=== PATIENT | male | born 1940 | race Caucasian/White ===

== ENCOUNTER 2017-05-01 11:09 | Day surgery (SDC) | payer MEDICARE ==
[~2017-05-01 11:09] MED LIST: Lidocain 1% EPI 1:100,000 * 30 ML MDV ONE
[2017-05-01] MEDS ORDERED: Bupivacaine 0.25% SDV* 30 ML ONE (13:04)
[2017-05-01 14:45] VITALS: BP 130/79
--- NOTE | 2017-05-01 23:39 | OP ---
DATE OF OPERATION: 05/01/17 - [facility] DATE OF : 38 SURGEON: Payam Mayen MD GANG BOSS: GIANCARLO Elkins ANESTHESIOLOGIST: None. ANESTHESIA: Local only with 1% lidocaine with epinephrine and bicarbonate. PRE-OP DIAGNOSIS: Right severe carpal tunnel syndrome. POST-OP DIAGNOSIS: Right severe carpal tunnel syndrome. OPERATIVE PROCEDURE: Right open carpal tunnel release. INDICATIONS: Robby has severe right carpal syndrome with significant atrophy in the thenar muscles. We had talked about risks and benefits. I told him I thought it would be worthwhile to preserve the sensation that he has in the radial three digits. He understands that as the nerve heals, he may even have more numbness and tingling and that he is likely to have incomplete relief. We talked about risks and benefits including the risk of chronic pain, nerve injury , vascular injury among others. ESTIMATED BLOOD LOSS: 5 mL. COMPLICATIONS: None. FINDINGS: As expected. DESCRIPTION OF PROCEDURE: Robby was seen in the preoperative holding area and the correct site and side of the procedure were identified. We had a time-out, then I anesthetized the operative area with 1% lidocaine with epinephrine. We then came back to the operating room, and the arm was prepped and draped in the usual fashion after a pre-scrub. I made a 2 to 3 cm longitudinal incision in the standard location for an open carpal tunnel release. Dissection was carried down through the subcutaneous tissue. The palmar fascia was incised longitudinally. I released the transverse carpal ligament just off the radial aspect of the hook of the hamate. This was carried out from distal to proximal. When I got to the level of the proximal aspect of the incision, I released the subcutaneous tissue and the fat and retracted that volarly and ulnarly with the Emeka retractor. Under direct visualization, I then released the remainder of the transverse carpal ligament just off the ulnar border of the palmaris longus tendon to a level of several centimeters proximal to the wrist flexion crease. I then checked the decompression again. There were few more fibers to be released. Ultimately, every-thing looked very nicely decompressed. You could tell that the nerve had been quite compressed; it was very purple in its color and flattened. The wound was then irrigated and the skin closed with some 4-0 nylon sutures. The wound was dressed with Xeroform, 4x4s, sterile Webril, and an Jim wrap. He was then taken to the recovery room in stable condition. As I was closing the wound , I went ahead and infiltrated the operative area with 0.25% Marcaine as well. [id number]/[facility] #: [id number] JOVANI
== END 2017-05-01 14:32 | disposition home or self-care (01) ==
LOC: OREAST 11:09
PROVIDERS: ATTEND Orthopaedic Surgery Hand Surgery
DX: G56.01 Carpal tunnel syndrome, right upper limb (principal); Z79.02 Long term (current) use of antithrombotics/antiplatelets; E11.9 Type 2 diabetes mellitus without complications; I48.91 Unspecified atrial fibrillation; Z87.891 Personal history of nicotine dependence; I25.10 Atherosclerotic heart disease of native coronary artery without angina pectoris; I47.2 Ventricular tachycardia; E78.5 Hyperlipidemia, unspecified; Z79.4 Long term (current) use of insulin; Z79.82 Long term (current) use of aspirin; Z88.8 Allergy status to other drugs, medicaments and biological substances; Z88.0 Allergy status to penicillin

== ENCOUNTER 2017-06-19 09:02 | Day surgery (SDC) | payer MEDICARE ==
[2017-06-19] MEDS ORDERED: Sodium Bicarbonate 8.4%* 50 ML SYRINGE ONE (09:57)
[2017-06-19] MEDS ORDERED: Lidocaine 1.5% EPI 1:200,000* 30 ML SDV ONE (09:57)
[2017-06-19] MEDS ORDERED: Bupivacaine 0.25% SDV* 30 ML ONE (10:18)
[2017-06-19 11:31] VITALS: BP 138/64
--- NOTE | 2017-06-20 03:33 | OP ---
DATE OF OPERATION: 06/19/17 - [facility] DATE OF : 38 SURGEON: Payam Mayen MD MOTOR BRAKEMAN: GIANCARLO Elkins ANESTHESIOLOGIST: None. ANESTHESIA: Local only with 1% lidocaine with epinephrine and bicarbonate. PRE-OP DIAGNOSIS: Left carpal tunnel syndrome. POST-OP DIAGNOSIS: Left carpal tunnel syndrome. OPERATIVE PROCEDURE: Left open carpal tunnel release. INDICATIONS: Robby has had progressive symptoms related to his carpal tunnel syndrome. We talked about risks and benefits. He had wanted to proceed with carpal tunnel release. He has previously had the right side done. ESTIMATED BLOOD LOSS: 5 mL. COMPLICATIONS: None. FINDINGS: As expected. DESCRIPTION OF PROCEDURE: Robby was seen in the preoperative holding area, the correct site, side, and procedure were identified. We had a time-out and the operative area was infiltrated with 1% lidocaine with epinephrine and bicarbonate. Short time later, we came back to the operating room and the arm was prepped and draped and a formal time-out was performed. I began by making a 3 cm incision in the typical location for an open carpal tunnel release. The dissection was carried down trough the skin, subcutaneous tissue, and palmar fascia to expose the transverse carpal ligament. This was released just off the radial aspect of the hook of the hamate. I did the release from distal to proximal. When I got to the proximal, I released the fascia and the subcutaneous tissue and this was retracted superficially and ulnarly. Under direct visualization, I then used the tenotomy scissors to release the remainder of the transverse carpal ligament. I then checked my decompression proximally and, just 1 cm or two proximal to my incision, there was a tight band of tissue that still remained. I was having difficulty visualizing this and so I went ahead and took my incision up across the wrist crease in Lexi type fashion, raised the full- thickness flaps and indeed the distal end of brachial fascia was still not fully released there and so I went ahead and took my tenotomy scissors and released that under direct visualization until I was completely satisfied with the release. I then turned my attention distally, there were a few more fibers of palmar fascia that were released. The nerve was fully released distally and proximally at this point. I went ahead and irrigated out the wound. The skin was closed with 4-0 nylon suture. The operative area was then infiltrated with 0.25% plain Marcaine. The wound was then dressed with Xeroform, 4x4, sterile Webril, and Jim bandage and he was then taken to the recovery room in stable condition. [id number]/[facility] #: [id number] MTDD
== END 2017-06-19 11:56 | disposition home or self-care (01) ==
LOC: OREAST 09:02
PROVIDERS: ATTEND Orthopaedic Surgery Hand Surgery
DX: G56.02 Carpal tunnel syndrome, left upper limb (principal); E11.9 Type 2 diabetes mellitus without complications; Z79.84 Long term (current) use of oral hypoglycemic drugs

== ENCOUNTER 2018-02-12 06:00 | Inpatient (IN) | payer MEDICARE ==
[~2018-02-12 06:00] MED LIST changes: +Buffered Lidocaine 0.9% SYRIN* 5 ML/SYR SYRINGE INTRADERM ONE; +Famotidine IV* 10 MG/ML 2 ML (20 mg) IV ONE; -Lidocain 1% EPI 1:100,000 * 30 ML MDV ONE; +Metoclopramide TAB* 10 MG PO ONE; +Vancomycin(*) 1,500 MG in NS 0.9% 250 ML* 250 ML IVPB SCH
[2018-02-12] MEDS ORDERED: Famotidine IV* 10 MG/ML 2 ML (20 mg) ONE (06:09)
[2018-02-12] MEDS ORDERED: Metoclopramide TAB* 10 MG ONE (06:09)
[2018-02-12] MEDS ORDERED: Artificial Tear OPHTH.OINT* 3.5 GM ONE (07:08)
[2018-02-12] MEDS ORDERED: Ondansetron INJ* 2 MG/ML VIAL ONE (07:20)
[2018-02-12] MEDS ORDERED: Sodium Chloride 0.9%* 10 ML ONE (07:20)
[2018-02-12] MEDS ORDERED: EPHEDrine (Pressors)* 50 MG/ML VIAL ONE (07:20)
[2018-02-12] MEDS ORDERED: Dexamethasone IV* 4 MG/ML 1 ML (4 MG) ONE (07:20)
[2018-02-12] MEDS ORDERED: Propofol* 10 MG/ML 20 ML BTL IV PUSH ONE (07:20)
[2018-02-12] MEDS ORDERED: Lidocaine 2% PF * 5 ML VIAL ONE (07:20)
[2018-02-12] MEDS ORDERED: Phenylephrine INJ* 10 MG/ML 1 ML VIAL (10 MG) ONE ×2 (07:20→09:11)
[2018-02-12] MEDS ORDERED: Mivacurium Chloride* 20 MG/10 ML VIAL IV ONE (07:20)
[2018-02-12] MEDS ORDERED: fentaNYL* 50 MCG/ML 2 ML VIAL (100 MCG VIAL) ONE (07:20)
[2018-02-12] MEDS ORDERED: Propofol* 500 MG/50 ML BTL ONE ×3 (07:20→11:24)
[2018-02-12] MEDS ORDERED: KETAMINE HCL* 50 MG/ML 10 ML VIAL ONE (07:21)
[2018-02-12] MEDS ORDERED: Remifentanil* 2 MG VIAL ONE ×3 (07:21→11:23)
[2018-02-12] MEDS ORDERED: Midazolam* 1 MG/ML 5 ML VIAL (5 MG) ONE (07:21)
[2018-02-12] MEDS ORDERED: Thrombin 5,000 UNITS* 1 APPLIC KIT - topical use - TOPICAL ONE (07:30)
[2018-02-12] MEDS ORDERED: Lidocaine 1% MPF wEPI 200,000* 30 ML SDV ONE (07:30)
[2018-02-12] MEDS ORDERED: Bacitracin IV* 50,000 UNITS INJ ONE ×2 (07:30→13:07)
[2018-02-12] MEDS ORDERED: Midazolam* 1 MG/ML 2 ML VIAL (2 MG) ONE (09:13)
[2018-02-12] MEDS ORDERED: HYDROmorphone INJ* 1 MG/ML CARPUJECT SYRINGE ONE (12:59)
[2018-02-12] MEDS ORDERED: Ondansetron INJ* 2 MG/ML VIAL IV PRN ×2 (13:21→14:07)
[2018-02-12] MEDS ORDERED: Magnesium Hydroxide LIQ* 30 ML UDC PO PRN (13:21)
[2018-02-12] MEDS ORDERED: Labetalol IV* 5 MG/ML 20 ML VIAL ONE (13:21)
[2018-02-12] MEDS ORDERED: Acetaminophen TAB* 325 MG PO PRN (13:21)
[2018-02-12] MEDS ORDERED: fentaNYL* 50 MCG/ML 2 ML VIAL (100 MCG VIAL) IV PRN (14:07)
[2018-02-12] MEDS ORDERED: Naloxone* 0.4 MG/ML 1 ML VIAL IV PRN (14:07)
[2018-02-12] MEDS ORDERED: HYDROmorphone INJ* 1 MG/ML CARPUJECT SYRINGE IV PRN (14:07)
--- NOTE | 2018-02-12 14:28 | RAD ---
INDICATION: Neurosurgical guidance COMPARISON: None FINDINGS: 9.3 seconds of fluoroscopy were provided for the neurosurgical department. Fluoroscopic spot imaging of the lumbar spine were obtained for operative control for fusion cage placement/lumbar fusion. CPT II Codes: 6045F (fluoro time doc)
--- NOTE | 2018-02-12 14:34 | RAD ---
INDICATION: Lumbar fusion COMPARISON: None FINDINGS: 45.6 seconds of fluoroscopy were provided for the neurosurgical department. Fluoroscopic spot imaging of the lumbar spine were obtained for operative operative control. CPT II Codes: 6045F (fluoro time doc)
[2018-02-12] MEDS: HYDROcodone/ACETAMIN 5-325 MG* 1 TAB PO PRN (16:09)
[2018-02-12] MEDS ORDERED: Dextrose 50% Syringe 50 ML* 25 GM/50 ML SYRINGE IV PUSH PRN (17:30)
[2018-02-12] MEDS ORDERED: Insulin GLARGINE(*) 1 UNITS UNIT SUBCUT SCH (18:00)
[2018-02-12] MEDS ORDERED: Insulin LISPRO* 1 UNITS UNIT SUBCUT ONE (18:00)
[2018-02-12] MEDS: Insulin LISPRO* 1 UNITS UNIT SUBCUT SCH ×2 (18:02→21:57)
[2018-02-12] MEDS: metFORMIN* 500 MG TAB PO SCH (21:58)
--- NOTE | 2018-02-13 02:37 | CONS ---
MEDICAL CONSULTATION REPORT: DATE OF CONSULT: 02/12/18 HISTORY OF PRESENT ILLNESS: This 77-year-old man came for neurosurgical procedure to address his L4-L5 right posterolateral disk extrusion. The patient began having pain in his back radiating down his right leg to the toe around 2016. It was quite severe and he eventually had an MRI on 12/11/17, and after his preoperative evaluation had surgery today, 02/12/18. He has tolerated the procedure quite well. I was asked to see the patient to help with management of his medical problems. PAST MEDICAL HISTORY: The patient has prior C-spine surgery, left ankle surgery , has had cholecystectomy, appendectomy. He has had atrial flutter ablation, hx moderate aortic stenosis.. He is treated for diabetes as well. The patient has a history of coronary artery disease, but denies ever having myocardial infarction or angina. He does not use nitroglycerin. He is still an active oquendo up until the time his ambulation was limited by his disk protrusion last fall. HOME MEDICATIONS: 1. Multivitamins. 2. Aspirin 81 mg daily. 3. Atorvastatin 80 mg daily. 4. Fenofibrate 145 mg daily. 5. Levemir 34 units in the morning, 23 units in the p.m. 6. Metformin 500 mg b.i.d. 7. Metoprolol succinate 50 mg daily. 8. Nateglinide 60 mg t.i.d. with meals. 9. Pantoprazole 40 mg daily. ALLERGIES: PENICILLIN. FAMILY HISTORY: Unremarkable. SOCIAL HISTORY: He lives alone. He is never and has no children. His healthcare proxy is his nephew, Murali Freeman. The patient states he quit smoking and quit drinking alcohol in 1992. 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 REVIEW OF SYSTEMS: His weight has been stable. He denied headache, change in his vision, cough, shortness of breath, chest pain, abdominal pain, change in bowel or bladder habits, no significant pain aside of the pain related to his disk. PHYSICAL EXAM: Weight 245 pounds, height 5 feet 9 inches, blood pressure 140/55 , heart rate 96, temperature 97.5. He is a pleasant elderly man sitting in a chair with an abdominal binder on. He is alert and appears comfortable. HEENT : No signs of head trauma. Head is normocephalic. Pupils equal and reactive. Mouth and pharynx are clear. Neck was supple. No JVD, adenopathy, or thyromegaly. Heart is regular with 3/6 systolic murmur at the right sternal border. Lungs are clear to auscultation and percussion. There is no axillary or cervical adenopathy. Abdomen was quite obese. He was restrained by his binder, clearly for his comfort. I did not remove that. Left lower leg looked somewhat larger than right leg and had some hyperpigmentation. There was trace edema in both legs, little worse than the left leg. Joints were unremarkable. Neurologic Exam: Intact and he moved all limbs well. IMPRESSION AND PLAN: Satisfactory post-op course. The patient checks his blood sugar twice a day at home and usually gets between 100 and 130. His fingersticks here today ranged from 161 to 204. We will continue his home diabetic regimen. I think he will clearly be less active than he normally is, although not necessarily much less active than he has been in the last few weeks. His diet might be different here. The stress of surgery may raise his blood sugar. All-in-all, I think this will give us some margin for making sure he is not hyperglycemic. His metoprolol, aspirin, fenofibrate, atorvastatin, and pantoprazole can be continued as before. Metformin and insulin will be continued here. We will use Lantus in place of Levemir as the pharmacology is very similar. If he can supply his nateglinide that can be given; otherwise, we will make up with the lispro coverage. I would discharge him on all of his usual medications. He could be advised that he might be a little hyperglycemic for the first few days to a week as the effects of the surgery rosemary. Thank you for allowing me to see your patient in consultation. [id number]/[facility] #: [id number] JOVANI
[2018-02-13] MEDS ORDERED: Insulin GLARGINE(*) 1 UNITS UNIT SUBCUT SCH (06:00)
--- NOTE | 2018-02-13 08:14 | RAD ---
INDICATION: Postoperative L4-L5 fusion COMPARISON: Lumbar spine October 28, 2017 TECHNIQUE: Routine PA, lateral, and oblique imaging was performed . FINDINGS: Bones: There is interval posterior postoperative fusion at L4-L5. There is a cage device as well. Multilevel degenerative spur formation and facet arthropathy is again noted. Alignment: Normal Disc spaces: There is minor narrowing at L5-S1. The remaining disc spaces are well-maintained Soft tissues: There are no soft tissue abnormalities. IMPRESSION: INTERVAL POSTOPERATIVE FUSION L4-L5. NO EVIDENCE OF HARDWARE FAILURE.
[2018-02-13] MEDS ORDERED: CMCS: Pantoprazole TAB (NF) 40 MG TAB PO SCH (09:00)
[2018-02-13] MEDS ORDERED: Aspirin EC TAB* 81 MG TAB.EC PO SCH (09:00)
[2018-02-13] MEDS ORDERED: CMCS: Fenofibrate(NF) 145 MG TAB PO SCH (09:00)
[2018-02-13] MEDS ORDERED: Atorvastatin* 80 MG TAB PO SCH (09:00)
[2018-02-13] MEDS ORDERED: Metoprolol Succinate XL TAB* 50 MG PO SCH (09:00)
[2018-02-13] MEDS: Insulin LISPRO* 1 UNITS UNIT SUBCUT SCH ×2 (09:06→13:41)
[2018-02-13] MEDS: metFORMIN* 500 MG TAB PO SCH (09:08)
[2018-02-13] MEDS: NATEGLINIDE 60 MG PO SCH ×2 (09:09→14:19)
[2018-02-13] MEDS: HYDROcodone/ACETAMIN 5-325 MG* 1 TAB PO PRN ×2 (09:12→15:09)
[2018-02-13 12:43] VITALS: BP 119/49
--- NOTE | 2018-02-13 16:04 | PN ---
Progress Note - Progress Note Date of Service: 02/13/18 SOAP: Subjective: []Patient seen earlier today. No events ON. Right LE preop pain resolved. Minimal incisional back pain. Tolerates PO, Voids, Ambulates, Wants to go home. Objective: []VSS, Afebrile Wounds soft, clean, dry. AAOx3, KERON, CN II-XII grossly intact. Motor 5/5 all extremities, Sensory grossly intact to light touch. Assessment: []77 yom POD #1 Rt L4-5 MIS TLIF, L4 laminectomy and foraminotomy. Plan: []Monitor VS, Neurochecks. L spine XR revealed good placement of hardware, good alignment of lumbar spine. Encourage ambulation. PT/OT DC planning if cleared per PT, IM. Appreciate IM input. Full instructions were given to the patient. Shawna Vallejo MD
--- NOTE | 2018-02-14 12:51 | OP ---
DATE OF OPERATION: 02/12/18 - ROOM #333 DATE OF : 38 SURGEON: Joseph Vallejo MD VIDEOTAPE OPERATOR: GIANCARLO Jasso. Case was done with assistance of the PA because of the complexity of the case. ANESTHESIA: General. PRE-OP DIAGNOSIS: L4-5 degenerative disease. POST-OP DIAGNOSIS: L4-5 degenerative disease. OPERATIVE PROCEDURE: Patient underwent right L4-5 MIS TLIF with autologous iliac crest bone graft through a separate incision and local bone graft and DBX putty, pedicle screws at L4 and L5 and intraoperative navigation, intraoperative monitoring. ESTIMATED BLOOD LOSS: 50 cc. COMPLICATIONS: None. SUMMARY: The patient is a very pleasant 77-year-old gentleman with history of diabetes who has complaints of back pain radiating to the right lower extremity. MRI revealed evidence of significant degenerative disease at L4-5 and he was offered the option of surgical intervention in the form of right L4- 5 MIS TLIF. After explaining the expectations, limitations, possible complications of procedure to the patient with complications included but not limited to bleeding, infection, risk of injury to adjacent structures, coma, paralysis, , need for additional procedures, anesthesia risk, stroke, blindness, cancer, instability, hardware failure, adjacent level disease, pseudoarthrosis, anesthesia risk, the patient was agreeable to proceeding with surgery and informed consent was obtained. The patient and his niece who were present in the discussion understood that his condition may not improve and in fact may get worse after the surgery and that he may need to have additional procedure in the future and that the operative plan may be modified according to the intraoperative findings and conditions. DESCRIPTION OF PROCEDURE: The patient was brought to the operating room, was placed under general anesthesia by the anesthesia team. He was carefully positioned prone on the [place] table and all bony prominences were meticulously padded. His skin was prepped and draped in the standard fashion. After appropriate surgical pause and patient identification, a small incision over the left iliac crest was performed with a #10 surgical blade after infiltrating the skin with local anesthetic. The incision was carried down and the Corex trocar was used to obtain bone graft while the navigation pin was secured into the iliac crest through the same incision. Intraoperative O-arm imaging was obtained and the patient later was transferred to the navigation platform. With the use of stereotactic navigation, the projection of the pedicles were marked on the skin as well as the intended skin incision site was determined over the L4-5 disk space. The incision was made to the right of the midline after infiltrating the skin with local anesthetic and over a series of tubular dilators and with the use of stereotactic navigation, the tubular METRx retractor system was introduced into the field, over the right nolvia-lamina of L4 and L4-L5 facet. A decompressive laminectomy was performed at the L4-5 level with the use of high speed drill and Kerrison punches in order to achieve direct decompression in the stenotic level at L4-5. A facetectomy in the right L4-5 was performed with high speed drill and Kerrison punches. Locally harvested bone was used for bone graft in the later phase. After the compression was performed, an extended foraminotomy was performed on the right L5 nerve root. The nerve root was gently retracted medially as well as the thecal sac and then diskectomy was performed after incising the annulus fibrosus with a #15 surgical blade. Diskectomy was carried out with the use of pituitary rongeurs and disk scrapers and cervical curettes. After appropriate sizing of the disk space with a series of trials, an elevate expandible Medtronic cage 9 mm x 28 mm length with 8 degrees of lordosis, was inserted after being filled with a mixture of autologous bone graft and DBX putty. Prior to the insertion of the interbody cage, the disk space was filled with a mixture of locally harvested and iliac crest bone graft as well as DBX putty. The expandible cage was expanded and a second O-arm imaging was obtained, this confirmed excellent placement of the interbody cage and the data was transferred to the navigation platform again. Under stereotactic navigation and confirmation with the AP fluoroscopy, the pedicles of L4 and L5 were cannulated and Vow To Be Chic[employer] Iden[employer]tronic 6.5 x 45 mm screws were inserted. Two 45 mm rods were then used to connect the screws and a third O-arm imaging was obtained which confirmed optimal placement of all hardware. The screw head caps were used to secure the rods and screws in place, and after removing the screw interior design faculty member towers as well as the navigation pin. Intraoperative fluoroscopic imaging confirmed excellent placement of all hardware. The wounds were then copiously irrigated and were closed by layers with 0 interrupted Vicryl sutures to approximate the fascia, while 2-0 interrupted Vicryl suture was used to approximate the subcutaneous tissue with some interrupted inverted 4 -0 Monocryl sutures. The skin was covered with Dermabond and sterile dressings. At the end of the procedure, all counts were reported to be correct. The patient remained hemodynamically stable throughout the case and the intraoperative monitoring was stable throughout the case. The patient was then turned supine and was extubated and was transferred to Recovery in excellent condition. The case was done with assistance of surgical PA because of the complexity of the case. [id number]/[facility] #: [id number] JOVANI
--- NOTE | 2018-02-17 16:25 | DS ---
DISCHARGE SUMMARY: DATE OF ADMISSION: 02/12/18 DATE OF DISCHARGE: 02/13/18 ADMISSION DIAGNOSIS: Degenerative disease L4-5. DISCHARGE DIAGNOSIS: Degenerative disease L4-5. OPERATIVE PROCEDURE: Patient underwent right L4-5 MIS TLIF with autologous iliac crest bone graft through a separate incision and local bone graft and DBX putty with pedicle screws at L4 and L5, L4 decompressive laminectomy and intraoperative navigation and intraoperative monitoring. SUMMARY: The patient is a very pleasant 77-year-old gentleman with history of diabetes who has complaints of back pain radiating to the right lower extremity. The patient had MRI findings consistent with degenerative disease at L4-5. He was offered the option of surgical intervention in the form of right L4-5 MIS TLIF. After explaining the expectations, limitations, possible complications of the procedure to the patient and his niece with complications included but not limited to bleeding, infection, risk of injury to adjacent structures, coma, paralysis, , need for additional procedures, anesthesia risk, stroke, blindness, cancer, instability, hardware failure, adjacent level disease, pseudoarthrosis, anesthesia risk, the patient was acceptable to proceeding with surgery and informed consent was obtained. The patient underwent the above procedure on 02/12/18. He tolerated the procedure well, was extubated and was transferred to Recovery in excellent condition. Patient was able to ambulate, void and was tolerating p.o. well. He had excellent pain control with p.o. medications. On postop day #1 on 02/13/18, it was felt that he was ready to be discharged home. His preoperative right lower extremity pain had completely resolved and the patient was discharged home with p.o. pain medications and appropriate instructions. DISPOSITION: Home. The patient was discharged home with above instructions and was scheduled for a followup for wound check in 7 to 10 days. [id number]/[facility] #: [id number] JOVANI
== END 2018-02-13 15:37 | disposition home or self-care (01) | DRG 460 ==
LOC: AA 06:00 → SSU 15:47
PROVIDERS: ADMIT Neurological Surgery; ATTEND Neurological Surgery
PROC: 01NB0ZZ Release Lumbar Nerve, Open Approach (ICD-10-PCS; 2018-02-12)
PROC: 0SB20ZZ Excision of Lumbar Vertebral Disc, Open Approach (ICD-10-PCS; 2018-02-12)
PROC: 0QB30ZZ Excision of Left Pelvic Bone, Open Approach (ICD-10-PCS; 2018-02-12)
PROC: 0SG00AJ Fusion of Lumbar Vertebral Joint with Interbody Fusion Device, Posterior Approach, Anterior Column, Open Approach (ICD-10-PCS; principal; 2018-02-12 07:30)
DX: M47.26 Other spondylosis with radiculopathy, lumbar region (principal); M51.16 Intervertebral disc disorders with radiculopathy, lumbar region; I25.10 Atherosclerotic heart disease of native coronary artery without angina pectoris; E11.9 Type 2 diabetes mellitus without complications; E78.5 Hyperlipidemia, unspecified; G56.01 Carpal tunnel syndrome, right upper limb; I11.9 Hypertensive heart disease without heart failure; E66.9 Obesity, unspecified; Z68.36 Body mass index [BMI] 36.0-36.9, adult; Z79.899 Other long term (current) drug therapy; Z79.82 Long term (current) use of aspirin; Z88.8 Allergy status to other drugs, medicaments and biological substances; Z88.0 Allergy status to penicillin; Z79.84 Long term (current) use of oral hypoglycemic drugs; Z87.891 Personal history of nicotine dependence
CPT/HCPCS: 72100; 76000; 76001; A9270-GY; C1713; C9359; G8978-GP-CI; G8979-GP-CI; G8980-GP-CI; J1100; J1170; J2001; J2250; J2405; J2704; J3010; J3370

== ENCOUNTER 2018-08-21 18:16 | Emergency (ER) | payer MEDICARE ==
--- NOTE | 2018-08-21 22:46 | ED ---
Lower Extremity - HPI Summary HPI Summary: Patient is a 78-year-old male who presents emergency department for evaluation of a left foot injury after falling off a tractor. Incident occurred around 1400 today. Patient states he was on a large tractor roughly 6 feet from the ground when he lost his balance and fell. Patient denied chest pain, shortness of breath, lightheadedness, dizziness at that time. Patient states his leg got caught on tractor and he fell roughly 2 feet to the ground. Patient did sustain abrasion to the side of his head. He denies headache or loss of consciousness. Is not anticoagulant. Patient also states he has a bruise to his chest from where his cell phone was in his pocket. Patient otherwise denies neck pain, chest pain, shortness of breath, abdominal pain, numbness, tingling, weakness, back pain. Patient's only complaint is left foot pain. Patient states he only came into the ER because family encouraged him. Symptoms are mild in severity. Walking makes symptoms worse. Rest makes symptoms better. Pt. states last tetanus was within 5 days. - History of Current Complaint Chief Complaint: EDExtremityLower Stated Complaint: LT FT INJURY Time Seen by Provider: 08/21/18 22:45 Hx Obtained From: Patient Pain Intensity: 6 - Allergies/Home Medications Allergies/Adverse Reactions: Allergies Allergy/AdvReac Type Severity Reaction Status Date / Time Penicillins Allergy Unknown Verified 02/12/18 06:33 Reaction Details PMH/Surg Hx/FS Hx/Imm Hx Previously Healthy: Yes Endocrine/Hematology History: Reports: Hx Diabetes, Hx Anemia - daily ASA Cardiovascular History: Reports: Hx Coronary Artery Disease, Hx Peripheral Vascular Disease, Other Cardiovascular Problems/Disorders - aortic stenosis, hx a-flutter, hyperlipidemia, hx v-tach Denies: Hx Hypertension, Hx Pacemaker/ICD GI History: Reports: Hx Gastroesophageal Reflux Disease, Hx Ulcer - hx of pyloric History: Denies: Hx Renal Disease Musculoskeletal History: Reports: Hx Arthritis, Other Musculoskeletal History - spondylosis, lumbar region Sensory History: Reports: Hx Cataracts - has beginnings, no surgery yet, Hx Contacts or Glasses Denies: Hx Hearing Aid Opthamlomology History: Reports: Hx Cataracts - has beginnings, no surgery yet, Hx Contacts or Glasses Neurological History: Reports: Other Neuro Impairments/Disorders - reports pain radiating down right leg from back issue Psychiatric History: Denies: Hx Panic Disorder - Surgical History Surgery Procedure, Year, and Place: left index finger - PARTIAL AMPUTATED. left ankle mark,. CSP. 1998 cholecystectomy, THEN 2005 - HAD COMMON BILE DUCT REPAIR AND STONES REMOVED. APPENDECTOMY Hx Anesthesia Reactions: No Infectious Disease History: No Infectious Disease History: Denies: Traveled Outside the [place] in Last 30 Days - Family History Known Family History: Positive: Other - Noncontributory - Social History Occupation: Retired Lives: With Family Alcohol Use: None Alcohol Amount: QUIT 1992 Substance Use Type: Reports: None Smoking Status (MU): Former Smoker Type: Pipe Amount Used/How Often: reports smoked pipe (full pouch tobacco) daily for 38 years Review of Systems Constitutional: Negative Eyes: Negative ENT: Negative Cardiovascular: Negative Negative: Palpitations, Chest Pain Respiratory: Negative Negative: Shortness Of Breath, Cough Gastrointestinal: Negative Negative: Abdominal Pain, Vomiting, Nausea Positive: Other - Left foot pain Positive: Bruising - Left foot Neurological: Negative Negative: Headache, Weakness, Paresthesia, Numbness, Syncope All Other Systems Reviewed And Are Negative: Yes Physical Exam Triage Information Reviewed: Yes Vital Signs On Initial Exam: Initial Vitals Temp Pulse Resp BP Pulse Ox 97.9 F 73 16 131/58 97 08/21/18 19:11 08/21/18 19:11 08/21/18 19:11 08/21/18 19:11 08/21/18 19:11 Vital Signs Reviewed: Yes Appearance: Positive: Well-Appearing Skin: Positive: Warm, Dry Head/Face: Positive: Normal Head/Face Inspection, Other - Small superficial abrasion over the temporal area. No hematoma or ecchymosis. Eyes: Positive: Normal, EOMI, KERON, Conjunctiva Clear Neck: Positive: Supple Respiratory/Lung Sounds: Positive: Clear to Auscultation, Breath Sounds Present Cardiovascular: Positive: Normal, RRR Abdomen Description: Positive: Nontender, Soft Musculoskeletal: Positive: Other - Diffuse ecchymosis and edema to dorsum of left foot. No breaks in skin over foot. Neurovascularly intact. No proximal knee or hip pain. Chronic stasis dermatitis. Pain over left chest wall. No midline vertebral pain. No CA tenderness bilaterally. Neurological: Positive: Normal, Alert, Oriented to Person Place, Time, CN Intact II-III Psychiatric: Positive: Affect/Mood Appropriate - [place] Coma Scale Best Eye Response: 4 - Spontaneous Best Motor Response: 6 - Obeys Commands Best Verbal Response: 5 - Oriented Coma Scale Total: 15 Diagnostics - Vital Signs Vital Signs Temp Pulse Resp BP Pulse Ox 08/21/18 21:51 98.5 F 88 16 143/52 96 08/21/18 19:11 97.9 F 73 16 131/58 97 - Laboratory Lab Statement: Any lab studies that have been ordered have been reviewed, and results considered in the medical decision making process. Lower Extremity Course/Dx - Course Course Of Treatment: Pt. presenting for a left foot injury. Pt. does have small abrasion to head. He denies headache and is not anticoagulated. He is fully oriented and very well appearing. Pt. had foot xray in waiting room and pt. stating he does not want further work but does agree to chest xray. Chest xray negative for acute findings. Foot xray shows nondisplaced fx of proximal and possibly distal 2nd metatarsal of left foot. Foot was splinted. Advised to call ortho. clinic on friday for apt. Pt. states he has wheelchair and walker at home. Advised nonweight bearing until seen by ortho. To ice and elevate. To return to ER if sxs change or worsen. Pt. and family understand and agree with plan. - Diagnoses Differential Diagnosis/HQI/PQRI: Positive: Contusion, Dislocation, Sprain, Strain Provider Diagnoses: Metatarsal fracture Discharge - Sign-Out/Discharge Documenting (check all that apply): Patient Departure - Discharge Plan Condition: Good Disposition: HOME Patient Education Materials: Foot Fracture in Adults (ED) Referrals: Annemarie Serrano MD [Medical Doctor] - Momo Ro MD [Primary Care Provider] - Additional Instructions: Call Dr. Serrano's office on Friday for an appointment Keep splint in place Do not bear weight on left foot--use walker or wheelchair Ice and elevate Tylenol for pain as directed Return to ER if symptoms change or worsen - Billing Disposition and Condition Condition: GOOD Disposition: Home
[2018-08-22 00:41] VITALS: BP 154/82
--- NOTE | 2018-08-22 07:49 | RAD ---
Indication: LEFT foot pain post fall with twisting. Swelling and bruising. Unable to bear weight. Comparison: August 22, 2016 Technique: AP, lateral, and oblique views LEFT foot. Report: Decreased bone density. Postsurgical change of subtalar and tibiotalar fusion. Acute grossly nondisplaced avulsion fracture at the base of the fifth metatarsal. Grossly nondisplaced distal metaphyseal fracture of the second metatarsal. No additional fracture evident. Diffuse moderately severe degenerative arthropathy. Soft tissue swelling most prominent over the lateral aspect of the foot. IMPRESSION: #. Acute grossly nondisplaced avulsion fracture at the base of the fifth metatarsal. #. Grossly nondisplaced distal metaphyseal fracture of the second metatarsal. R2
--- NOTE | 2018-08-22 08:51 | RAD ---
Indication: Fall. LEFT foot injury. Comparison: February 05, 2018 Technique: Upright AP 2310 hours Report: Elevated lung volumes. The peripheral RIGHT costophrenic angle is incompletely included in the [id number]. Mild prominence of the interstitial markings without change. No alveolar infiltrate, focal pulmonary lesion, pleural effusion, or pneumothorax evident. Cardiomegaly. Unremarkable central pulmonary vasculature and mediastinal contours accounting for rightward rotation. No acute thoracic fractures evident. Healed RIGHT fourth and fifth rib fractures noted. Advanced arthropathy at the LEFT shoulder. IMPRESSION: #. Stigmata of obstructive lung disease. No acute pulmonary or cardiac process evident. R0
== END 2018-08-22 00:39 | disposition home or self-care (01) ==
LOC: ED 18:16
DX: S92.355A Nondisplaced fracture of fifth metatarsal bone, left foot, initial encounter for closed fracture (principal); W30.9XXA Contact with unspecified agricultural machinery, initial encounter; Y92.9 Unspecified place or not applicable
CPT/HCPCS: 71045; 99282

== ENCOUNTER 2018-08-26 16:04 | Inpatient (IN) | payer MEDICARE ==
--- OUTSIDE RECORDS SUMMARY | 2018-08-26 16:40 | XMS REPORT ---
:1940 External Reference #:[id number] Author Organization [employer] Address [address] [facility] [place] [address] [place] [address] Phone [phone] Care Team Providers Name Role Phone Momo Ro MD Primary Care Physician Unavailable Payers Type Date Identification Numbers Payment Provider Subscriber Health Maintenance Policy Number: Medicare Blue Ppo Darryl Lin (O) [id number] Group Number: [id number] [address] [address] PayID: [id number] [place] [address] Problems Date Description Provider Status Onset: 08/23/2016 Coronary arteriosclerosis Albin Mclaughlin M.D. Active Onset: 08/23/2016 Aortic valve disorder Albin Mclaughlin M.D. Active Onset: 08/23/2016 Atrial flutter Albin Mclaughlin M.D. 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 Pt reports that he smoked a pipe fro age 17 to . Pt reports that he seldom smoked cigarettes. ETOH Use Denies alcohol use quit drink 1991 Smoking Patient is a former smoker quit ~ 1992 Recreational Drug Use Denies Drug Use Daily Caffeine Coffee 1 cup occasionally but drinks mostly water Exercise Type/Frequency [place] Allergies, Adverse Reactions, Alerts Date Description Reaction Status Severity Comments 06/24/2014 Nonsteroidals active per [facility] [place] allergy list 06/24/2014 Penicillin unknown active per [facility] [facility] allergy list Medications Medication Date Status Form Strength Qnty SIG Indications Ordering Provider Metoprolol 03/25/ Active Tablets ER 50mg 90tab 1 tab by Albin Palomo Succinate ER 2016 24HR s mouth Brand, every M.D. day Lipitor / Active Tablets 80mg 30tab 1 by Unknown 0000 s mouth every night at bedtime Nateglinide / Active Tablets 60mg 1 by Unknown 0000 mouth three times a day prior to meals Metformin HCL / Active Tablets 500mg 180ta 1 by Unknown 0000 bs mouth twice a day Multivitamins / Active daily Unknown 0000 Levemir Flextouch / Active Solution 100Unit/ML inject Unknown 0000 Pen-Inject 34 units qam 23 units qpm Aspirin / Active Tablets DR 81mg 1 by Unknown 0000 mouth every day Pantoprazole / Active Solution 40mg 1 by Unknown Sodium 0000 Rec mouth every day Areds 2 / Active 2 po qd Unknown 0000 Fenofibrate / Active Tablets 145mg 1 by Unknown 0000 mouth every day [place] 02/13/ Hx Tablets 5-325mg 30tab take 1-2 Vassilios 2018 - s tabs by Yoni 03/16/ MD shama 2017 every 4-6 hours as needed for pain. Tramadol 05/01/ Hx Tablets 37.5-325mg 30tab 1-2 tab Payam Hydrochloride/Jim 2016 - by mouth MD Tiarra taminophen 2017 4-6 hours as needed Levofloxacin 09/17/ Hx Tablets 500mg 10tab 1 by Mayda Palomo 2015 - s mouth [place], 10/27/ every M.D. 2015 day Levofloxacin 08/23/ Hx Tablets 500mg 14tab 1 by Mayda Palomo 2015 - s mouth [place], 09/13/ every M.D. 2015 day Metoprolol 04/09/ Hx Tablets ER 50mg 90tab 1 tab by Albin Palomo Succinate ER 2012 - R s mouth Brand, 01/31/ every M.D. 2016 day Tricor / Hx Tablets 145mg 90tab 1 by Unknown 0000 - s mouth 2016 day Omeprazole / Hx Capsules 20mg 90cap 1 by Unknown 0000 - DR s mouth 2015 day Clopidogrel / Hx Tablets 75mg 1 by Unknown Bisulfate 0000 - mouth 2017 day Levofloxacin / Hx Tablets 500mg one by Unknown 0000 - mouth 11/17/ daily 2018 for 10 days Cyclobenzaprine / Hx Tablets 5mg take one Unknown HCL 0000 - tablet 02/05/ by mouth 2017 every 8 hours prn. may take a second tablet if first not effetive . Immunizations CPT Code Status Date Vaccine Reaction Lot # [id number] Given 09/17/2016 Influenza Virus Vaccine, no immediate reaction [id number] Quadrivalent, Split noted Virus, Im Use Vital Signs Date Vital Result Comment 08/26/2018 Height 70 inches 5'10" Weight 248.00 lb Heart Rate 76 /min BP Systolic 130 mmHg BP Diastolic 84 mmHg BMI (Body Mass Index) 35.6 kg/m2 05/22/2018 Height 68.75 inches 5'8.75" Weight 246.00 lb BP Systolic Sitting 140 mmHg BP Diastolic Sitting 60 mmHg Pain Level 0 BMI (Body Mass Index) 36.6 kg/m2 03/16/2018 Height 68.75 inches 5'8.75" Weight 246.00 lb BP Systolic Sitting 122 mmHg BP Diastolic Sitting 70 mmHg Pain Level 0 BMI (Body Mass Index) 36.6 kg/m2 02/18/2018 Height 68.75 inches 5'8.75" Weight 246.00 lb Heart Rate 66 /min BP Systolic Sitting 138 mmHg BP Diastolic Sitting 76 mmHg Body Temperature 98.9 F Pain Level 2 BMI (Body Mass Index) 36.6 kg/m2 02/09/2018 Height 68.75 inches 5'8.75" Weight 246.00 lb Heart Rate 68 /min BP Systolic Sitting 128 mmHg BP Diastolic Sitting 60 mmHg Pain Level 6 BMI (Body Mass Index) 36.6 kg/m2 02/06/2018 Height 68.75 inches 5'8.75" Weight 246.00 lb without shoes Heart Rate 66 /min BP Systolic Sitting 124 mmHg Lue lg cuff BP Diastolic Sitting 66 mmHg Lue lg cuff BP Systolic Standing 140 mmHg Lue lg cuff BP Diastolic Standing 60 mmHg Lue lg cuff Respiratory Rate 20 /min BMI (Body Mass Index) 36.6 kg/m2 01/21/2018 Height 68.75 inches 5'8.75" Weight 251.00 lb without shoes Heart Rate 72 /min BP Systolic Sitting 110 mmHg Lue lg cuff BP Diastolic Sitting 70 mmHg Lue lg cuff BP Systolic Standing 122 mmHg Lue lg cuff BP Diastolic Standing 74 mmHg Lue lg cuff Respiratory Rate 17 /min BMI (Body Mass Index) 37.3 kg/m2 Ejection Fraction 50-55% date 04/22/17 12/15/2017 Height 69 inches 5'9" Weight 253.00 lb Heart Rate 71 /min BP Systolic Sitting 120 mmHg BP Diastolic Sitting 68 mmHg Pain Level 6 BMI (Body Mass Index) 37.4 kg/m2 11/21/2017 Height 71 inches 5'11" Weight 255.00 lb Heart Rate 77 /min BP Systolic Sitting 124 mmHg BP Diastolic Sitting 86 mmHg Pain Level 5 BMI (Body Mass Index) 35.6 kg/m2 11/18/2017 Height 71 inches 5'11" Weight 255.00 lb per pt Heart Rate 76 /min reg BP Systolic Sitting 110 mmHg Lue, lg cuff BP Diastolic Sitting 50 mmHg Lue, lg cuff Respiratory Rate 16 /min Body Temperature 98.3 F tympanic Pain Level 8 right hip and back BMI (Body Mass Index) 35.6 kg/m2 10/28/2017 Height 71 inches 5'11" Weight 255.00 lb BP Systolic 134 mmHg BP Diastolic 70 mmHg Respiratory Rate 20 /min Pain Level 10 BMI (Body Mass Index) 35.6 kg/m2 07/02/2017 Height 71 inches 5'11" Weight 255.00 lb Heart Rate 63 /min BP Systolic 153 mmHg BP Diastolic 63 mmHg Body Temperature 97.8 F Pain Level 1 BMI (Body Mass Index) 35.6 kg/m2 06/06/2017 Height 71 inches 5'11" Weight 255.00 lb Heart Rate 70 /min BP Systolic 132 mmHg BP Diastolic 60 mmHg BMI (Body Mass Index) 35.6 kg/m2 05/15/2017 Height 69 inches 5'9" Weight 256.00 lb Heart Rate 72 /min BP Systolic 130 mmHg BP Diastolic 68 mmHg Respiratory Rate 18 /min Body Temperature 96.5 F Pain Level 0 BMI (Body Mass Index) 37.8 kg/m2 04/23/2017 Height 69 inches 5'9" Weight 256.00 lb without shoes Heart Rate 64 /min reg with ectopy BP Systolic Sitting 100 mmHg Rue lg cuff BP Diastolic Sitting 60 mmHg Rue lg cuff BP Systolic Standing 104 mmHg Lue lg cuff BP Diastolic Standing 66 mmHg Lue lg cuff BP Systolic Lying Down 112 mmHg Lue lg cuff BP Diastolic Lying Down 62 mmHg Lue lg cuff Respiratory Rate 16 /min BMI (Body Mass Index) 37.8 kg/m2 Ejection Fraction 50-55% date 04/22/17 ECHO 04/18/2017 Height 69 inches 5'9" Weight 255.00 lb no shoes Heart Rate 72 /min BP Systolic Sitting 116 mmHg Lue lrg cuff BP Diastolic Sitting 62 mmHg Lue lrg cuff BP Systolic Standing 118 mmHg Lue lrg cuff BP Diastolic Standing 70 mmHg Lue lrg cuff Respiratory Rate 20 /min BMI (Body Mass Index) 37.7 kg/m2 Ejection Fraction 50-55% 03/20/2015-echo 04/15/2017 Height 69 inches 5'9" Weight 257.00 lb BP Systolic 115 mmHg BP Diastolic 62 mmHg Body Temperature 97.8 F Pain Level 8 BMI (Body Mass Index) 37.9 kg/m2 04/04/2017 Height 70 inches 5'10" Weight 258.00 lb Heart Rate 82 /min BP Systolic Sitting 130 mmHg BP Diastolic Sitting 68 mmHg Respiratory Rate 17 /min BMI (Body Mass Index) 37.0 kg/m2 01/31/2017 Height 70 inches 5'10" Weight 268.00 lb Heart Rate 80 /min BP Systolic Sitting 138 mmHg BP Diastolic Sitting 62 mmHg Respiratory Rate 17 /min BMI (Body Mass Index) 38.4 kg/m2 11/04/2016 Height 70 inches 5'10" Weight 268.00 lb Heart Rate 68 /min BP Systolic Sitting 138 mmHg left arm, large cuff BP Diastolic Sitting 66 mmHg left arm, large cuff Respiratory Rate 20 /min BMI (Body Mass Index) 38.4 kg/m2 10/28/2016 Height 70 inches 5'10" Weight 269.00 lb Heart Rate 64 /min BP Systolic Sitting 124 mmHg BP Diastolic Sitting 60 mmHg Respiratory Rate 14 /min Body Temperature 98.4 F BMI (Body Mass Index) 38.6 kg/m2 10/21/2016 Weight 269.50 lb with boot Heart Rate 66 /min BP Systolic Sitting 142 mmHg Ra lrg cuff BP Diastolic Sitting 66 mmHg Ra lrg cuff 10/07/2016 Height 70 inches 5'10" Weight 268.38 lb Heart Rate 80 /min BP Systolic Sitting 112 mmHg BP Diastolic Sitting 60 mmHg Respiratory Rate 14 /min Body Temperature 98.8 F BMI (Body Mass Index) 38.5 kg/m2 09/20/2016 Height 70 inches 5'10" Weight 263.00 lb Heart Rate 64 /min BP Systolic Sitting 130 mmHg left arm, large cuff BP Diastolic Sitting 66 mmHg left arm, large cuff Respiratory Rate 24 /min BMI (Body Mass Index) 37.7 kg/m2 Ejection Fraction 50-55% 03/20/15 09/17/2016 Height 70 inches 5'10" Weight 264.00 lb Heart Rate 62 /min BP Systolic Sitting 138 mmHg BP Diastolic Sitting 70 mmHg Respiratory Rate 16 /min Body Temperature 99.0 F BMI (Body Mass Index) 37.9 kg/m2 09/09/2016 Height 70 inches 5'10" Weight 264.00 lb Heart Rate 70 /min BP Systolic Sitting 128 mmHg right arm, large cuff BP Diastolic Sitting 68 mmHg right arm, large cuff Respiratory Rate 24 /min BMI (Body Mass Index) 37.9 kg/m2 08/23/2016 Height 70 inches 5'10" Weight 235.00 lb w/ shoes Heart Rate 68 /min BP Systolic Sitting 134 mmHg Lue, lg cuff BP Diastolic Sitting 76 mmHg Lue, lg cuff BP Systolic Standing 130 mmHg Lue BP Diastolic Standing 70 mmHg Lue Respiratory Rate 16 /min BMI (Body Mass Index) 33.7 kg/m2 Ejection Fraction 50-55% as of 03/20/15 echo 08/23/2016 Height 70 inches 5'10" Weight 242.00 lb Heart Rate 72 /min BP Systolic Sitting 134 mmHg BP Diastolic Sitting 58 mmHg Respiratory Rate 16 /min Body Temperature 98.2 F BMI (Body Mass Index) 34.7 kg/m2 08/18/2015 Height 70 inches 5'10" Weight 253.00 lb w/ sneakers Heart Rate 64 /min reg BP Systolic Sitting 132 mmHg Rue, reg cuff BP Diastolic Sitting 60 mmHg Rue, reg cuff BP Systolic Standing 124 mmHg Rue BP Diastolic Standing 62 mmHg Rue Respiratory Rate 18 /min BMI (Body Mass Index) 36.3 kg/m2 Ejection Fraction 50-55% as of 03/20/15 echo 06/30/2014 Height 70 inches 5'10" Weight 272.00 lb with shoes Heart Rate 66 /min BP Systolic 132 mmHg LA lg cuff stand BP Diastolic 64 mmHg LA lg cuff stand BP Systolic Sitting 130 mmHg LA lg cuff sit BP Diastolic Sitting 60 mmHg LA lg cuff sit Respiratory Rate 16 /min BMI (Body Mass Index) 39.0 kg/m2 Results Test Date Test Result H/L Range Note Urinalysis Profile 02/05/2018 Urine Color Yellow 1 Urine Appearance Clear 1 Urine Specific [place] 1.017 1.010-1.030 1 Urine pH 6.0 5-9 1 Urine Urobilinogen Negative Negative 1 Urine Ketones Negative Negative 1 Urine Protein Negative Negative 1 Urine Leukocytes Negative Negative 1 Urine Blood Negative Negative 1 * * Negative 1, 2 Urine Nitrite Negative Negative 1 Urine Bilirubin Negative Negative 1 Urine Glucose 1+(50 mg/dL) Negative 1 CBC No Diff 02/05/2018 White Blood Count 5.2 10^3/uL 3.5-10.8 1 Red Blood Count 4.43 10^6/uL 4.0-5.4 1 Hemoglobin 13.1 g/dL Low 14.0-18.0 1 Hematocrit 39 % Low 42-52 1 Mean Corpuscular Volume 87 fL 80-94 1 Mean Corpuscular Hemoglobin 30 pg 27-31 1 Mean Corpuscular HGB Conc 34 g/dL 31-36 1 Red Cell Distribution Width 14 % 10.5-15 1 Platelet Count 199 10^3/uL 150-450 1 Mean Platelet Volume 8.3 um3 7.4-10.4 1 Inr/Protime 02/05/2018 Inr 0.99 0.77-1.02 1 Laboratory test finding 02/05/2018 Partial Thrombo Time 31.7 seconds 26.0 -36.3 1, 3 PTT TSH (Thyroid Stim Horm) 1.21 mcIU/mL 0.34-5.60 1, 4 Type & Screen 02/05/2018 Patient Blood Type O Positive 1 Antibody Screen NEGATIVE 1 Laboratory test finding 12/17/2016 Point of Care Glucose 174 mg/dL High 74 -106 5 Laboratory test finding 12/17/2016 Point of Care Glucose 150 mg/dL High 74 -106 6 Laboratory test finding 12/13/2016 Point of Care Glucose 161 mg/dL High 74 -106 7 Laboratory test finding 12/13/2016 Point of Care Glucose 163 mg/dL High 74 -106 8 Laboratory test finding 12/12/2016 Point of Care Glucose 212 mg/dL High 74 -106 9 Laboratory test finding 12/12/2016 Point of Care Glucose 196 mg/dL High 74 -106 10 Laboratory test finding 12/11/2016 Point of Care Glucose 135 mg/dL High 74 -106 11 Laboratory test finding 12/11/2016 Point of Care Glucose 123 mg/dL High 74 -106 12 Laboratory test finding 12/10/2016 Point of Care Glucose 214 mg/dL High 74 -106 13 Laboratory test finding 12/10/2016 Point of Care Glucose 235 mg/dL High 74 -106 14 Laboratory test finding 12/09/2016 Point of Care Glucose 99 mg/dL 74-106 15 Laboratory test finding 12/09/2016 Point of Care Glucose 131 mg/dL High 74 -106 16 Laboratory test finding 12/09/2016 Point of Care Glucose 78 mg/dL 74-106 17 Laboratory test finding 12/06/2016 Point of Care Glucose 179 mg/dL High 74 -106 18 Laboratory test finding 12/06/2016 Point of Care Glucose 240 mg/dL High 74 -106 19 Laboratory test finding 12/05/2016 Point of Care Glucose 169 mg/dL High 74 -106 20 Laboratory test finding 12/05/2016 Point of Care Glucose 124 mg/dL High 74 -106 21 Laboratory test finding 12/04/2016 Point of Care Glucose 202 mg/dL High 74 -106 22 Laboratory test finding 12/04/2016 Point of Care Glucose 193 mg/dL High 74 -106 23 Laboratory test finding 12/03/2016 Point of Care Glucose 110 mg/dL High 74 -106 24 Laboratory test finding 12/03/2016 Point of Care Glucose 99 mg/dL 74-106 25 Laboratory test finding 12/03/2016 Point of Care Glucose 114 mg/dL High 74 -106 26 Laboratory test finding 12/03/2016 Point of Care Glucose 74 mg/dL 74-106 27 Laboratory test finding 12/02/2016 Point of Care Glucose 184 mg/dL High 74 -106 28 Laboratory test finding 12/02/2016 Point of Care Glucose 194 mg/dL High 74 -106 29 Laboratory test finding 11/29/2016 Point of Care Glucose 189 mg/dL High 74 -106 30 Laboratory test finding 11/29/2016 Point of Care Glucose 191 mg/dL High 74 -106 31 Laboratory test finding 11/28/2016 Point of Care Glucose 210 mg/dL High 74 -106 32 Laboratory test finding 11/28/2016 Point of Care Glucose 248 mg/dL High 74 -106 33 Laboratory test finding 11/28/2016 Point of Care Glucose 191 mg/dL High 74 -106 34 Laboratory test finding 11/27/2016 Point of Care Glucose 152 mg/dL High 74 -106 35 Laboratory test finding 11/27/2016 Point of Care Glucose 134 mg/dL High 74 -106 36 Laboratory test finding 11/27/2016 Point of Care Glucose 111 mg/dL High 74 -106 37 Laboratory test finding 11/26/2016 Point of Care Glucose 263 mg/dL High 74 -106 38 Laboratory test finding 11/26/2016 Point of Care Glucose 205 mg/dL High 74 -106 39 Laboratory test finding 11/25/2016 Point of Care Glucose 130 mg/dL High 74 -106 40 Laboratory test finding 11/25/2016 Point of Care Glucose 145 mg/dL High 74 -106 41 Laboratory test finding 11/22/2016 Point of Care Glucose 192 mg/dL High 74 -106 42 Laboratory test finding 11/22/2016 Point of Care Glucose 226 mg/dL High 74 -106 43 Laboratory test finding 11/21/2016 Point of Care Glucose 130 mg/dL High 74 -106 44 Laboratory test finding 11/21/2016 Point of Care Glucose 137 mg/dL High 74 -106 45 Laboratory test finding 11/21/2016 Point of Care Glucose 91 mg/dL 74-106 46 Laboratory test finding 11/20/2016 Point of Care Glucose 265 mg/dL High 74 -106 47 Laboratory test finding 11/20/2016 Point of Care Glucose 230 mg/dL High 74 -106 48 Laboratory test finding 11/19/2016 Point of Care Glucose 202 mg/dL High 74 -106 49 Laboratory test finding 11/19/2016 Point of Care Glucose 212 mg/dL High 74 -106 50 Laboratory test finding 11/07/2016 Point of Care Glucose 204 mg/dL High 74 -106 51 Laboratory test finding 11/07/2016 Point of Care Glucose 221 mg/dL High 74 -106 52 Laboratory test finding 11/06/2016 Point of Care Glucose 129 mg/dL High 74 -106 53 Laboratory test finding 11/06/2016 Point of Care Glucose 144 mg/dL High 74 -106 54 Laboratory test finding 11/05/2016 Point of Care Glucose 173 mg/dL High 74 -106 55 Laboratory test finding 11/05/2016 Point of Care Glucose 295 mg/dL High 74 -106 56 Laboratory test finding 11/04/2016 Point of Care Glucose 97 mg/dL 74-106 57 Laboratory test finding 11/04/2016 Point of Care Glucose 139 mg/dL High 74 -106 58 Laboratory test finding 11/04/2016 Point of Care Glucose 121 mg/dL High 74 -106 59 Laboratory test finding 11/01/2016 Point of Care Glucose 176 mg/dL High 74 -106 60 Laboratory test finding 11/01/2016 Point of Care Glucose 99 mg/dL 74-106 61 Laboratory test finding 10/31/2016 Point of Care Glucose 138 mg/dL High 74 -106 62 Laboratory test finding 10/31/2016 Point of Care Glucose 94 mg/dL 74-106 63 Laboratory test finding 10/30/2016 Point of Care Glucose 189 mg/dL High 74 -106 64 Laboratory test finding 10/30/2016 Point of Care Glucose 139 mg/dL High 74 -106 65 Laboratory test finding 10/29/2016 Point of Care Glucose 125 mg/dL High 74 -106 66 Laboratory test finding 10/29/2016 Point of Care Glucose 139 mg/dL High 74 -106 67 Laboratory test finding 10/28/2016 Point of Care Glucose 183 mg/dL High 74 -106 68 Laboratory test finding 10/28/2016 Point of Care Glucose 190 mg/dL High 74 -106 69 Laboratory test finding 10/25/2016 Point of Care Glucose 161 mg/dL High 74 -106 70 Laboratory test finding 10/25/2016 Point of Care Glucose 181 mg/dL High 74 -106 71 Laboratory test finding 10/24/2016 Point of Care Glucose 198 mg/dL High 74 -106 72 Laboratory test finding 10/24/2016 Point of Care Glucose 199 mg/dL High 74 -106 73 Laboratory test finding 10/24/2016 Point of Care Glucose 294 mg/dL High 74 -106 74 Laboratory test finding 10/23/2016 Point of Care Glucose 115 mg/dL High 74 -106 75 Laboratory test finding 10/23/2016 Point of Care Glucose 141 mg/dL High 74 -106 76 Laboratory test finding 10/22/2016 Point of Care Glucose 236 mg/dL High 74 -106 77 Laboratory test finding 10/22/2016 Point of Care Glucose 238 mg/dL High 74 -106 78 Laboratory test finding 10/21/2016 Point of Care Glucose 190 mg/dL High 74 -106 79 Laboratory test finding 10/21/2016 Point of Care Glucose 175 mg/dL High 74 -106 80 Laboratory test finding 10/18/2016 Point of Care Glucose 182 mg/dL High 74 -106 81 Laboratory test finding 10/18/2016 Point of Care Glucose 304 mg/dL High 74 -106 82 Laboratory test finding 10/17/2016 Point of Care Glucose 129 mg/dL High 74 -106 83 Laboratory test finding 10/17/2016 Point of Care Glucose 143 mg/dL High 74 -106 84 Laboratory test finding 10/08/2016 C Reactive Protein 1.99 mg/L < 5.00 85 Laboratory test finding 09/16/2016 Point of Care Glucose 117 mg/dL High 74 -106 86 Laboratory test finding 09/16/2016 Point of Care Glucose 130 mg/dL High 74 -106 87 CBC Auto Diff 09/13/2016 White Blood Count 6.9 10^3/uL 3.5-10.8 Red Blood Count 4.60 10^6/uL 4.0-5.4 Hemoglobin 12.8 g/dL Low 14.0-18.0 Hematocrit 39 % Low 42-52 Mean Corpuscular Volume 85 fL 80-94 Mean Corpuscular Hemoglobin 28 pg 27-31 Mean Corpuscular HGB Conc 33 g/dL 31-36 Red Cell Distribution Width 15 % 10.5-15 Platelet Count 184 10^3/uL 150-450 Mean Platelet Volume 9 um3 7.4-10.4 Abs Neutrophils 4.7 10^3/uL 1.5-7.7 Abs Lymphocytes 1.4 10^3/uL 1.0-4.8 Abs Monocytes 0.6 10^3/uL 0-0.8 Abs Eosinophils 0.2 10^3/uL 0-0.6 Abs Basophils 0.1 10^3/uL 0-0.2 Abs Nucleated RBC 0 10^3/uL Granulocyte % 67.6 % 38-83 Lymphocyte % 20.2 % Low 25-47 Monocyte % 8.9 % 1-9 Eosinophil % 2.5 % 0-6 Basophil % 0.8 % 0-2 Nucleated Red Blood Cells % 0.1 Laboratory test finding 09/13/2016 Point of Care Glucose 163 mg/dL High 74 -106 88 Laboratory test finding 09/13/2016 Point of Care Glucose 147 mg/dL High 74 -106 89 Basic Metabolic Panel 09/13/2016 Sodium 134 mmol/L 133-145 Potassium 4.7 mmol/L 3.5-5.0 Chloride 103 mmol/L 101-111 Co2 Carbon Dioxide 24 mmol/L 22-32 Anion Gap 7 mmol/L 2-11 Glucose 129 mg/dL High 70-100 Blood Urea Nitrogen 26 mg/dL High 6-24 Creatinine 1.07 mg/dL 0.67-1.17 BUN/Creatinine Ratio 24.3 High 8-20 Calcium 9.8 mg/dL 8.6-10.3 Egfr Non- 67.0 >60 Egfr 86.2 >60 90 Laboratory test 09/12/2016 Point of Care 240 mg/dL High 74-106 91 finding Glucose Laboratory test 09/12/2016 Point of Care 163 mg/dL High 74-106 92 finding Glucose Laboratory test 09/11/2016 Point of Care 151 mg/dL High 74-106 93 finding Glucose Laboratory test 09/11/2016 Point of Care 122 mg/dL High 74-106 94 finding Glucose Laboratory test 08/22/2016 Hemoglobin A1c 9.0 % High Less than 6.0 95 finding (Glyco HGB) CBC Auto Diff 08/22/2016 White Blood Count 7.2 10^3/uL 3.5-10.8 Red Blood Count 4.28 10^6/uL 4.0-5.4 Hemoglobin 12.0 g/dL Low 14.0-18.0 Hematocrit 36 % Low 42-52 Mean Corpuscular Volume 85 fL 80-94 Mean Corpuscular Hemoglobin 28 pg 27-31 Mean Corpuscular HGB Conc 33 g/dL 31-36 Red Cell Distribution Width 14 % 10.5-15 Platelet Count 247 10^3/uL 150-450 Mean Platelet Volume 9 um3 7.4-10.4 Abs Neutrophils 4.8 10^3/uL 1.5-7.7 Abs Lymphocytes 1.5 10^3/uL 1.0-4.8 Abs Monocytes 0.6 10^3/uL 0-0.8 Abs Eosinophils 0.2 10^3/uL 0-0.6 Abs Basophils 0.1 10^3/uL 0-0.2 Abs Nucleated RBC 0.01 10^3/uL Granulocyte % 67.1 % 38-83 Lymphocyte % 20.9 % Low 25-47 Monocyte % 9.0 % 1-9 Eosinophil % 2.2 % 0-6 Basophil % 0.8 % 0-2 Nucleated Red Blood Cells % 0.1 Laboratory test finding 08/22/2016 Prealbumin 20 mg/dL 18-38 Basic Metabolic Panel 08/22/2016 Sodium 136 mmol/L 133-145 Potassium 5.0 mmol/L 3.5-5.0 Chloride 102 mmol/L 101-111 Co2 Carbon Dioxide 26 mmol/L 22-32 Anion Gap 8 mmol/L 2-11 Glucose 217 mg/dL High 70-100 Blood Urea Nitrogen 27 mg/dL High 6-24 Creatinine 1.17 mg/dL 0.67-1.17 BUN/Creatinine Ratio 23.1 High 8-20 Calcium 9.6 mg/dL 8.6-10.3 Egfr Non- 60.4 >60 Egfr 77.7 >60 96 Laboratory test finding 08/22/2016 Tissue (BX) Culture & SEE RESULT BELOW 97, [address] Surgical Pathology SEE RESULT BELOW 97, 99 Wound Culture/Sensi 08/08/2016 Wound/Misc Culture-Gram SEE RESULT BELOW 100 Stain 1 AA 02/12 2 *Ascorbic acid is present which may interfere with detection of blood. 3 AA 02/12 4 AA 02/12 5 Scratch Finisher: [id number] MOLIVIATIS ADALBERTO 6 Scratch Finisher: [id number] MOLIVIATIS ADALBERTO 7 Scratch Finisher: [id number] MOLIVIATIS ADALBERTO 8 Scratch Finisher: [id number] MOLIVIATIS ADALBERTO 9 Scratch Finisher: [id number] MOLIVIATIS ADALBERTO 10 Scratch Finisher: [id number] MOLIVIATIS ADALBERTO 11 Scratch Finisher: [id number] MOLIVIATIS ADALBERTO 12 Scratch Finisher: [id number] MOLIVIATIS ADALBERTO 13 Scratch Finisher: [id number] MOLIVIATIS ADALBERTO 14 Scratch Finisher: [id number] MOLIVIATIS ADALBERTO 15 Scratch Finisher: [id number] MOLIVIATIS ADALBERTO 16 Scratch Finisher: [id number] MOLIVIATIS ADALBERTO 17 Scratch Finisher: [id number] MOLIVIATIS ADALBERTO 18 Scratch Finisher: [id number] MOLIVIATIS ADALBERTO 19 Scratch Finisher: [id number] MOLIVIATIS ADALBERTO 20 Scratch Finisher: [id number] MOLIVIATIS ADALBERTO 21 Scratch Finisher: [id number] MOLIVIATIS ADALBERTO 22 Scratch Finisher: [id number] MOLIVIATIS ADALBERTO 23 Scratch Finisher: [id number] MOLIVIATIS ADALBERTO 24 Scratch Finisher: [id number] MOLIVIATIS ADALBERTO 25 Scratch Finisher: [id number] MOLIVIATIS ADALBERTO 26 HBO Protocol Scratch Finisher: [id number] MOLIVIATIS ADALBERTO 27 Scratch Finisher: [id number] MOLIVIATIS ADALBERTO 28 Scratch Finisher: [id number] MOLIVIATIS ADALBERTO 29 Scratch Finisher: [id number] MOLIVIATIS ADALBERTO 30 Scratch Finisher: [id number] MOLIVIATIS ADALBERTO 31 Scratch Finisher: [id number] MOLIVIATIS ADALBERTO 32 Scratch Finisher: [id number] MOLIVIATIS ADALBERTO 33 Scratch Finisher: [id number] MOLIVIATIS ADALBERTO 34 Scratch Finisher: [id number] MOLIVIATIS ADALBERTO 35 Scratch Finisher: [id number] MOLIVIATIS ADALBERTO 36 Scratch Finisher: [id number] MOLIVIATIS ADALBERTO 37 Scratch Finisher: [id number] MOLIVIATIS ADALBERTO 38 Scratch Finisher: [id number] MOLIVIATIS ADALBERTO 39 Scratch Finisher: [id number] MOLIVIATIS ADALBERTO 40 Scratch Finisher: [id number] PARLETT PRAVIN R 41 Scratch Finisher: [id number] PARLETT PRAVIN R 42 Scratch Finisher: [id number] ROSENDA STUBBS 43 Scratch Finisher: [id number] ROSENDA STUBBS 44 Scratch Finisher: [id number] MOLIVIATIS ADLABERTO 45 HBO Protocol Scratch Finisher: [id number] MOLIVIATIS ADALBERTO 46 Scratch Finisher: [id number] MOLIVIATIS ADALBERTO 47 Scratch Finisher: [id number] MOLIVIATIS ADALBERTO 48 Scratch Finisher: [id number] MOLIVIATIS ADALBERTO 49 Scratch Finisher: [id number] MOLIVIATIS ADALBERTO 50 Scratch Finisher: [id number] MOLIVIATIS ADALBERTO 51 Scratch Finisher: [id number] MOLIVIATIS ADALBERTO 52 Scratch Finisher: [id number] MOLIVIATIS ADALBERTO 53 Scratch Finisher: [id number] MOLIVIATIS ADALBERTO 54 Scratch Finisher: [id number] MOLIVIATIS ADALBERTO 55 Scratch Finisher: [id number] MOLIVIATIS ADALBERTO 56 Scratch Finisher: [id number] MOLIVIATIS ADALBERTO 57 Scratch Finisher: [id number] MOLIVIATIS ADALBERTO 58 HBO Protocol Scratch Finisher: [id number] MOLIVIATIS ADALBERTO 59 Scratch Finisher: [id number] MOLIVIATIS ADALBERTO 60 Scratch Finisher: [id number] PRITTS DIONE 61 Scratch Finisher: [id number] PRITTS DIONE 62 Scratch Finisher: [id number] PRITTS DIONE 63 Scratch Finisher: [id number] PRITTS DIONE 64 Scratch Finisher: [id number] MOLIVIATIS ADALBERTO 65 Scratch Finisher: [id number] MOLIVIATIS ADALBERTO 66 Scratch Finisher: [id number] MOLIVIATIS ADALBERTO 67 Scratch Finisher: [id number] MOLIVIATIS ADALBERTO 68 Scratch Finisher: [id number] MOLIVIATIS ADALBERTO 69 Scratch Finisher: [id number] MOLIVIATIS ADALBERTO 70 Scratch Finisher: [id number] MOLIVIATIS ADALBERTO 71 Scratch Finisher: [id number] MOLIVIATIS ADALBERTO 72 Scratch Finisher: [id number] MOLIVIATIS ADALBERTO 73 Scratch Finisher: [id number] MOLIVIATIS ADALBERTO 74 Scratch Finisher: [id number] MOLIVIATIS ADALBERTO 75 Scratch Finisher: [id number] MOLIVIATIS ADALBERTO 76 Scratch Finisher: [id number] MOLIVIATIS ADALBERTO 77 Scratch Finisher: [id number] MOLIVIATIS ADALBERTO 78 Scratch Finisher: [id number] MOLIVIATIS ADALBERTO 79 Scratch Finisher: [id number] MEIXELL MICHI 80 Scratch Finisher: [id number] MEIXELL MICHI 81 Scratch Finisher: [id number] MOLIVIATIS ADALBERTO 82 Scratch Finisher: [id number] MOLIVIATIS ADALBERTO 83 Scratch Finisher: [id number] MOLIVIATIS ADALBERTO 84 Scratch Finisher: [id number] MOLIVIATIS ADALBERTO 85 Acute inflammation: >10.00 86 Scratch Finisher: [id number] MOLIVIATIS ADALBERTO 87 Scratch Finisher: [id number] MOLIVIATIS ADALBERTO 88 Scratch Finisher: [id number] MOLIVIATIS ADALBERTO 89 Scratch Finisher: [id number] MOLIVIATIS ADALBERTO 90 Because ethnic data is not always readily available, this report includes an eGFR for both -Americans and non- Americans. The National Kidney Disease Education Program (NKDEP) does not endorse the use of the MDRD equation for patients that are not between the ages of 18 and 70, are , have extremes of body size, muscle mass, or nutritional status, or are non- or non-. According to the National Kidney Foundation, irrespective of diagnosis, the stage of the disease is based on the level of kidney function: Stage Description GFR(mL/min/1.73 m(2)) 1 Kidney damage with normal or decreased GFR 90 2 Kidney damage with mild decrease in GFR 60-89 3 Moderate decrease in GFR 30-59 4 Severe decrease in GFR 15-29 5 Kidney failure <15 (or dialysis) 91 Scratch Finisher: [id number] MOLIVIATIS ADALBERTO 92 Scratch Finisher: [id number] MOLIVIATIS ADALBERTO 93 Scratch Finisher: [id number] MOLIVIATIS ADALBERTO 94 Scratch Finisher: [id number] MOLIVIATIS ADALBERTO 95 Therapeutic target for the treatment of diabetes Mellitus patients is <7% HBA1C, and in selective patients <6.0%.Please refer to Citizen [place] Diabetes Association Diabetic care guidelines for further information. 96 Because ethnic data is not always readily available, this report includes an eGFR for both -Americans and non- Americans. The National Kidney Disease Education Program (NKDEP) does not endorse the use of the MDRD equation for patients that are not between the ages of 18 and 70, are , have extremes of body size, muscle mass, or nutritional status, or are non- or non-. According to the National Kidney Foundation, irrespective of diagnosis, the stage of the disease is based on the level of kidney function: Stage Description GFR(mL/min/1.73 m(2)) 1 Kidney damage with normal or decreased GFR 90 2 Kidney damage with mild decrease in GFR 60-89 3 Moderate decrease in GFR 30-59 4 Severe decrease in GFR 15-29 5 Kidney failure <15 (or dialysis) 97 LEFT GREAT TOE 98 SEE RESULT BELOW Name: DARRYL FREEMAN : [address]: Fritz Joyce MD Acct: [id number] Unit: [id number] AGE: 76 Location: WOUND Re08/22/16 SEX: M Status: REG REF SPEC: [id number] BARBARA: 08/22/[address]: Fritz Joyce MD REQ: [id number] RECD: 08/22/16 STATUS: PRICE MALCOLM DR: Momo Ro MD _ SOURCE: TISSUE SPDESC:LEFT BIG ORDERED: Tissue Cult/GS COMMENTS: LEFT GREAT TOE Procedure Result Reported Site Tissue Gram Stain Final 08/22/16- 1342 ML 4+ Neutrophils 4+ Gram Positive Cocci 2+ Gram Positive Bacilli 3+ Gram Negative Bacilli Tissue Culture Final 08/24/16- 811 ML Organism 1 ENTEROCOCCUS FAECALIS Quantity 3+ 1. ENTEROCOCCUS FAECALIS M.I.C. RX --------- ------ Ampicillin <=2 S Penicillin 4 S Ciprofloxacin <=0.5 S Erythromycin >=8 R Gentamicin High Level S Levofloxacin 1 S Linezolid 1 S Nitrofurantoin <=16 S * Quinupristin/Dalfopristin R * Streptomycin High Level S Tetracycline >=16 R Tigecycline <=0.12 S Vancomycin 1 S Imipenem-Deduced S CONTINUED ON NEXT PAGE * ML=Testing performed at Main Lab DEPARTMENT OF PATHOLOGY, [address] [place] [address] Jn Diaz M.D. Director [facility] # [id number] Patient: DARRYL FREEMAN [id number] (Continued) Specimen: [id number] Collected: 08/22/16 Received: 08/22/16 (Continued) Procedure Result Reported Site Tissue Culture Final (continued) 08/24/16- 811 1. ENTEROCOCCUS FAECALIS (continued) M.IThiCThi RX --------- ------ * Ampicillin/Sulbactam-Deduced S * These antibiotics are not available in the [facility] Formulary Contact the Microbiology Department for any additional antibiotic reporting. * ML - MAIN LAB ([facility]) . END OF REPORT * ML=Testing performed at Main Lab DEPARTMENT OF PATHOLOGY, [address] [place] [address] Jn Diaz M.D. Director [facility] # [id number] 99 SEE RESULT BELOW Name: DARRYL FREEMAN : [address]: Fritz Joyce MD Acct: [id number] Unit: [id number] AGE: 76 Location: WOUND Re08/22/16 SEX: M Status: REG REF SPEC: [id number] BARBARA: 08/22/[address] [facility] [address]: Fritz Joyce MD REQ: [id number] RECD: 08/22/16 STATUS: SOUT _ ORDERED: Decal, LEVEL III FINAL DIAGNOSIS Left great toe, ulcer, biopsy: -- Acute and chronically inflamed granulation tissue with few minute devitalized bone fragments. 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 MICROSCOPIC DESCRIPTION . Signed (signature on file) Jn Diaz MD 1344 END OF REPORT * ML=Testing performed at Main Lab DEPARTMENT OF PATHOLOGY, [address] [place] [address] Jn Diaz M.D. Director [facility] # [id number] 100 SEE RESULT BELOW Name: DARRYL FREEMAN : [address]: Fritz Joyce MD Acct: [id number] Unit: [id number] AGE: 76 Location: WOUND Re08/08/16 SEX: M Status: REG REF SPEC: [id number] BARBARA: 08/08/[address] [facility] [address]: Fritz Joyce MD REQ: [id number] RECD: 08/08/16 STATUS: COMP [facility] DR: Momo Ro MD _ SOURCE: WOUND SPDESC: ORDERED: Culture Stain COMMENTS: LEFT GREAT TOE Submitted to [facility] via Mee[employer] system by [id number] at 1435 on 08/10/16. ATTEMPTED VERBAL: NO RESPONSE FROM OFFICE Procedure Result Reported Site Wound/Misc Gram Stain Final 08/08/16- 1736 ML 1+ Epithelial Cells 4+ Neutrophils 3+ Gram Positive Cocci 2+ Gram Negative Bacilli 1+ Gram Positive Bacilli Wound/Misc Culture Final 08/11/16- 0846 ML Organism 1 STREP PYOGENES (GRP A) Quantity 2+ Organism 2 ENTEROCOCCUS FAECALIS Quantity 2+ Organism 3 MORGANELLA MORGANII Quantity 1+ 1. STREP PYOGENES (GRP A) M.I.C. RX --------- ------ Chloramphenicol 4 S Ampicillin <=0.06 S Penicillin <=0.03 S Cefepime <=0.25 S CONTINUED ON NEXT PAGE * ML=Testing performed at Main Lab DEPARTMENT OF PATHOLOGY, [address] [place] [address] Jn Diaz M.D. Director [facility] # [id number] Patient: DARRYL FREEMAN [id number] (Continued) Specimen: [id number] Collected: 08/08/16-1539 Received: 08/08/16-1626 (Continued) Procedure Result Reported Site Wound/Misc Culture Final (continued) 08/11/16845 1. STREP PYOGENES (GRP A) (continued) M.I.C. RX --------- ------ * Cefotaxime <=0.25 S Ceftriaxone <=0.25 S Levofloxacin 0.5 S Azithromycin <=0.25 S Clindamycin <=0.06 S Erythromycin <=0.06 S Tetracycline 2 S Vancomycin 0.5 S 2. ENTEROCOCCUS FAECALIS M.I.C. RX --------- ------ Ampicillin <=2 S Penicillin 2 S Ciprofloxacin <=0.5 S Erythromycin >=8 R Gentamicin High Level S Levofloxacin 0.5 S Linezolid 1 S Nitrofurantoin <=16 S * Quinupristin/Dalfopristin R * Streptomycin High Level S Tetracycline >=16 R Tigecycline <=0.12 S Vancomycin 1 S Imipenem-Deduced S * Ampicillin/Sulbactam-Deduced S CONTINUED ON NEXT PAGE * ML=Testing performed at Main Lab DEPARTMENT OF PATHOLOGY, [address] [place] [address] Jn Diaz M.D. Director [facility] # [id number] Patient: DARRYL FREEMAN [id number] (Continued) Specimen: [id number] Collected: 08/08/16-1539 Received: 08/08/16 (Continued) Procedure Result Reported Site Wound/Misc Culture Final (continued) 08/11/16845 3. MORGANELLA MORGANII M.I.C. RX --------- ------ Ampicillin >=32 R Cefazolin >=64 R Cefepime <=1 S Ceftriaxone <=1 S Ciprofloxacin <=0.25 S Gentamicin <=1 S Levofloxacin <=0.12 S Meropenem <=0.25 S Nitrofurantoin R Tetracycline >=16 R Pipercillin/Tazobactam <=4 S Trimethoprim/Sulfamethoxazole <=20 S Amoxicillin/Clavulanic Acid >=32 R Aztreonam <=1 S * These antibiotics are not available in the [facility] Formulary Contact the Microbiology Department for any additional antibiotic reporting. Contact the Microbiology Department for any additional antibiotic reporting. * ML - MAIN LAB ([facility]) . END OF REPORT * ML=Testing performed at Main Lab DEPARTMENT OF PATHOLOGY, [address] [place] [address] Jn Diaz M.D. Director [facility] # [id number] Procedures Date CPT Code Description Status 02/12/2018 10177 Calles/Facet/Foraminotomy;Vertebral Segment; Lumbar Completed 02/12/2018 08285 Calles/Facet/Foraminotomy;Vertebral Segment; Lumbar Completed 02/12/2018 41690 Stereotactic Computer-Assisted, Spinal Completed 02/12/2018 24289 Insertion Interbody Biomechanical Device; Each Completed Interspace 02/12/2018 78189 Insertion Interbody Biomechanical Device; Each Completed Interspace 02/12/2018 62920 Non-Segmental Instrumentation Posterior 1 Interspace Completed 02/12/2018 14314 Non-Segmental Instrumentation Posterior 1 Interspace Completed 02/12/2018 59524 Arthrodesis Posterior Interbody Technique Completed 02/12/2018 39192 Arthrodesis Posterior Interbody Technique Completed 02/12/2018 43877 Autograft For Spine Surgery, Morselized Completed 02/12/201899576 Allograft For Spine Surgery, Morselized Completed 01/27/2018 38583 ECHO Transthoracic, Real-Time 2D With Doppler And Color Completed Flow 01/27/2018 25220 ECHO Transthoracic, Real-Time 2D With Doppler And Color Completed Flow 01/26/2018 83265 Treadmill Interp/Report Only Completed 01/26/2018 50632 Stress Test Supervsn W/Out I/R Completed 01/26/2018 85280 Myocardial Perfusion Imaging Tomographic (Spect) Completed Multiple Studies 01/21/2018 56482 EKG Tracing & Interpretation Completed 06/19/2017 51409 Carpal Tunnel Release Completed 06/19/2017 53770 Carpal Tunnel Release Completed 05/01/2017 69266 Carpal Tunnel Release Completed 05/01/2017 96074 Carpal Tunnel Release Completed 04/22/2017 20010 ECHO Transthoracic, Real-Time 2D With Doppler And Color Completed Flow 04/18/2017 43563 EKG Tracing & Interpretation Completed 03/13/2017 67955 Nerve Conduction 07-08 Studies Completed 03/13/2017 12782 Needle Electromyography Complete, Five Or More Muscles Completed Studied 12/17/2016 90678 Hyperbaric Oxygen Therapy By Physician Completed 12/12/2016 76127 Hyperbaric Oxygen Therapy By Physician Completed 12/11/2016 95115 Chemical Cautery Granulation Tissue Completed 12/10/2016 96306 Hyperbaric Oxygen Therapy By Physician Completed 12/06/2016 08572 Hyperbaric Oxygen Therapy By Physician Completed 12/05/2016 25894 Hyperbaric Oxygen Therapy By Physician Completed 12/03/2016 40826 Hyperbaric Oxygen Therapy By Physician Completed 11/29/2016 53918 Hyperbaric Oxygen Therapy By Physician Completed 11/28/2016 06782 Hyperbaric Oxygen Therapy By Physician Completed 11/26/2016 21203 Hyperbaric Oxygen Therapy By Physician Completed 11/22/2016 56700 Hyperbaric Oxygen Therapy By Physician Completed 11/21/2016 92757 Hyperbaric Oxygen Therapy By Physician Completed 11/20/2016 36165 Hyperbaric Oxygen Therapy By Physician Completed 11/19/2016 29945 Hyperbaric Oxygen Therapy By Physician Completed 11/19/2016 12895 Removal Devitalization Tissue Wound Less Than Equal 20 Completed Square CM 11/06/2016 45682 Hyperbaric Oxygen Therapy By Physician Completed 11/05/2016 80870 Hyperbaric Oxygen Therapy By Physician Completed 11/01/2016 28448 Hyperbaric Oxygen Therapy By Physician Completed 10/31/2016 34968 Hyperbaric Oxygen Therapy By Physician Completed 10/31/2016 48027 Removal Devitalization Tissue Wound Less Than Equal 20 Completed Square CM 10/30/2016 45064 Hyperbaric Oxygen Therapy By Physician Completed 10/29/2016 37924 Hyperbaric Oxygen Therapy By Physician Completed 10/25/2016 57346 Hyperbaric Oxygen Therapy By Physician Completed 10/24/2016 33563 Hyperbaric Oxygen Therapy By Physician Completed 10/24/2016 81287 Debridement Skin,& sq Tissue Completed 10/23/2016 30793 Hyperbaric Oxygen Therapy By Physician Completed 10/22/2016 18604 Hyperbaric Oxygen Therapy By Physician Completed 10/21/2016 56761 Hyperbaric Oxygen Therapy By Physician Completed 10/18/2016 35137 Hyperbaric Oxygen Therapy By Physician Completed 10/17/2016 19564 Hyperbaric Oxygen Therapy By Physician Completed 10/15/2016 70623 Hyperbaric Oxygen Therapy By Physician Completed 10/14/2016 17551 Hyperbaric Oxygen Therapy By Physician Completed 10/11/2016 70912 Hyperbaric Oxygen Therapy By Physician Completed 10/09/2016 33606 Hyperbaric Oxygen Therapy By Physician Completed 10/08/2016 37261 Hyperbaric Oxygen Therapy By Physician Completed 10/08/2016 08948 Removal Devitalization Tissue Wound Less Than Equal 20 Completed Square CM 10/04/2016 59544 Hyperbaric Oxygen Therapy By Physician Completed 10/03/2016 91309 Hyperbaric Oxygen Therapy By Physician Completed 10/03/2016 62908 Removal Devitalization Tissue Wound Less Than Equal 20 Completed Square CM 10/02/2016 12584 Hyperbaric Oxygen Therapy By Physician Completed 10/01/2016 99868 Hyperbaric Oxygen Therapy By Physician Completed 09/27/2016 62612 Hyperbaric Oxygen Therapy By Physician Completed 09/26/2016 23137 Apply Total Contact Leg Cast Completed 09/26/2016 78898 Hyperbaric Oxygen Therapy By Physician Completed 09/25/2016 64421 Hyperbaric Oxygen Therapy By Physician Completed 09/24/2016 63489 Hyperbaric Oxygen Therapy By Physician Completed 09/24/2016 79676 Removal Devitalization Tissue Wound Less Than Equal 20 Completed Square CM 09/24/2016 38510 Debridement Skin,& sq Tissue Completed 09/20/2016 21432 Hyperbaric Oxygen Therapy By Physician Completed 09/19/2016 66020 Hyperbaric Oxygen Therapy By Physician Completed 09/19/2016 17213 Removal Devitalization Tissue Wound Less Than Equal 20 Completed Square CM 09/19/2016 92162 Debridement Skin,& sq Tissue Completed 09/18/2016 40070 Hyperbaric Oxygen Therapy By Physician Completed 09/17/2016 04958 Revascularization,Endovascular W/Transluminal Completed Angioplasty 09/13/2016 40450 Hyperbaric Oxygen Therapy By Physician Completed 09/12/2016 65237 Hyperbaric Oxygen Therapy By Physician Completed 09/11/2016 11416 Hyperbaric Oxygen Therapy By Physician Completed 08/29/2016 53403 Removal Devitalization Tissue Wound Less Than Equal 20 Completed Square CM 08/29/2016 38375 Debridement Skin,& sq Tissue Completed 08/23/2016 97438 EKG Tracing & Interpretation Completed 08/22/2016 30095 Biopsy Skin Lesion Single Completed 08/15/2016 96860 I&D Abscess Simple Completed 08/08/2016 48897 Debridement Skin,& sq Tissue Completed 08/18/2015 25180 EKG Tracing & Interpretation Completed 03/20/2015 31819 ECHO Transthoracic, Real-Time 2D With Doppler And Color Completed Flow 06/30/2014 08582 EKG Tracing & Interpretation Completed Encounters Type Date Location Provider CPT E/M Dx Office Visit 05/22/2018 [facility] 86115 M47.26 1:30p Of Christiane Vallejo MD E66.8 Z48.89 Office Visit 02/12/2018 3:06p [facility], Lamin Agarwal, 08134 E11.9 Hospitalists Kristina I35.0 I25.10 Z79.4 Office Visit 02/06/2018 2:30p [facility] Spencer Mclaughlin 87842 I25.10 Christiane Acevedo I35.0 Z01.810 M47.26 M51.16 Office Visit 01/21/2018 1:00p [facility] Spencer Mclaughlin 55171 I25.10 Christiane Acevedo I35.0 Office Visit 12/15/2017 1:30p [facility] 81643 M47.26 Of Christiane Vallejo MD M51.16 E66.8 Office Visit 11/21/2017 9:00a [facility] 62733 M54.41 Of Christiane Vallejo MD E66.8 M47.896 Office Visit 11/18/2017 11:15a [place] [address] M54.41 C.M.A. M54.16 Office Visit 10/28/2017 2:00p [facility] [address] M54.41 C.M.A. M54.16 M25.551 Office Visit 04/23/2017 10:30a [facility] Spencer Mclaughlin 13574 I35.0 Christiane Acevedo I25.10 Z01.810 G56.01 Office Visit 04/18/2017 11:00a [facility] Spencer Mclaughlin 07241 I25.10 Christiane Acevedo I35.0 Z01.810 Office Visit 04/15/2017 2:00p [facility] Of Payam Mayen, 37173 G56.03 Erica BROWN Office Visit 04/04/2017 11:00a [place] [address] G56.03 Office Visit 02/11/2017 2:36p Wound Care Center AT [facility] [place] Fritz Houston 57305 E11.621 Kristina Joyce M86.8x7 L97.524 Office Visit 01/31/2017 9:30a [place] [address] M54.12 Services Of [facility] E11.42 Office Visit 01/14/2017 9:04a Wound Care Center Fritz Joyce 01983 E11.621 [facility] M86.8x7 L97.524 L97.521 Office Visit 12/17/2016 3:16p [facility] Care [facility] Fritz Joyce 82817 E11.621 [facility] M86.8x7 Office Visit 12/03/2016 10:08a W[facility] Care Center Fritz Joyce, 61187 M86.8x7 [facility] E11.621 Office Visit 11/26/2016 4:11p [facility] Fritz Joyce, 13912 E11.621 [facility] M86.8x7 Office Visit 11/04/2016 1:40p [facility] Of Kady Fierro, 37089 L97.524 [facility] AT [facility] [place] MILLIE BROWN, [facility] [place] G60.3 Office Visit 10/28/2016 3:00p [facility] Cristela Palomo 19401 E11.621 Infectious Diseases Kristina Hairston Office Visit 10/21/2016 1:40p [facility] Of Kady Fierro, 27333 I73.9 Environmental Consultant AT [facility] [place] MILLIE BROWN, [facility] Office Visit 10/16/2016 2:45p Wound [place] [address] E11.621 [facility] [place] L97.524 M86.8x7 L97.521 L97.221 L02.632 R09.89 E78.5 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 Office Visit 10/07/2016 2:40p [facility] Cristela Palomo 00420 M86.672 Infectious Diseases Kristina Hairston E11.621 Office Visit 09/20/2016 11:30a [facility] Of Kady Fierro, 25813 L97.524 Environmental Consultant AT [facility] [place] , FACC, [facility] Office Visit 09/17/2016 10:10a [facility] Tong Palomo 17907 L97.524 Infectious Diseases Kristina Hairston E11.621 M86.672 Z23 Office Visit 09/11/2016 9:00a [place]ound [place] [address] E11.621 AT [facility] [place] L97.524 M86.8x7 L97.521 L97.221 L02.632 R09.89 E78.5 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 Office Visit 09/09/2016 1:40p [facility] Of Kady CarbajalThi Celiagerber, 18198 L97.524 Environmental Consultant AT [facility] [place] MD, FACC, [facility] E11.621 Office Visit 09/04/2016 3:30p Wound [place] [address] E11.621 [facility] [place] L97.524 M86.8x7 L97.521 L97.221 L02.632 R09.89 E78.5 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 Office Visit 08/23/2016 8:50a [facility] Tong Palomo 00598 E11.621 Infectious Jose L Hairston M.D. M86.672 I73.9 L97.524 Office Visit 08/23/2016 10:30a [facility] Albin Mclaughlin, 59684 I48.3 Christiane Acevedo I25.10 I35.0 Office Visit 08/18/2015 11:15a [facility] Spencer Mclaughlin, 31215 I25.10 Christiane Acevedo I48.3 Office Visit 06/30/2014 12:45p [facility] Spencer Mclaughlin 80186 414.01 Christiane Acevedo 427.32 Office Visit 05/06/2013 12:30p [facility] Albin Mclaughlin, 53944 427.32 Christiane Acevedo 414.9 Plan of Care Future Appointment(s):10/14/2018 9:00 am - Albin Mclaughlin M.D. at [facility]
--- NOTE | 2018-08-26 19:17 | RAD ---
EXAM: CT Left Lower Extremity Without Intravenous Contrast, Foot CLINICAL HISTORY: 78 years old, male; Injury or trauma; Fall; Follow-up exam; Fracture, traumatic; Closed fracture; Foot; Left; Patient HX: Fall from combine, metarsal FX. HX ankle mark placement; Additional info: Left metatarsal fractures, cellulitis TECHNIQUE: Axial computed tomography images of the left foot without intravenous contrast. All CT scans at this facility use at least one of these dose optimization techniques: automated exposure control; mA and/or kV adjustment per patient size (includes targeted exams where dose is matched to clinical indication); or iterative reconstruction. COMPARISON: DX HIEU L FOOT LEFT 3+ VWS 08/21/2018 7:30 PM FINDINGS: Limitations: [place] artifact from orthopedic fixation hardware. Bones/joints: Surgical fixation hardware and fusion involving the distal tibia, calcaneus, and talus. Multiple fractures involving the medial cuneiform, middle cuneiform, proximal and mid first metatarsal, proximal and distal second metatarsal, proximal and mid third metatarsal, proximal fourth metatarsal, and proximal fifth metatarsal. No dislocation. Soft tissues: No soft tissue abscess. No radiopaque foreign body. IMPRESSION: 1. Multiple foot fractures. 2. No soft tissue abscess. To contact [facility] with a general question: [facility] - [phone] For direct physician to physician contact: Physician Hotline - [phone] [facility] [place] ([facility] Facility ID #[id number])
--- NOTE | 2018-08-26 19:27 | ED ---
Skin Complaint - HPI Summary HPI Summary: A 78 y/o male presents to ED c/o blistering, swelling and redness of left foot. In the ED room, the patient has a pulse of 70 BPM, O2 saturation of 95% and blood pressure of 168/79. As per triage, "Pt sent from [facility] office due to blistering, swelling and redness of left foot. Pt seen here on Friday after falling off combine and fracturing his foot. Pt left foot in splint currently. Pt reports he did not see his foot was so bad till the orthopedic took the splint and clifton wrap off it today. Pt denies fever". As per family, the patient was at [facility] on Friday as he fell and hurt his left foot (seen by Dr. Lugo. His foot was wrapped by a nurse and was diagnosed with cellulitis at the time. He was directed to come to [facility] for Abx. He noted that the "old" cellulitis from the food was removed from the area. He denies any fever or itching, however, during the fall, the patient hurt his chest. The family seems they are fed up with waiting for information and treatment. - History of Current Complaint Chief Complaint: EDRashSkinAbscess Time Seen by Provider: 08/26/18 19:24 Stated Complaint: LT FT SWOLLEN Hx Obtained From: Patient Onset/Duration: Started Days Ago, Still Present Skin Exposure Onset/Duration: Days Ago Timing: Constant, Lasting Days Current Severity: None Pain Intensity: 0 Pain Scale Used: 0-10 Numeric Skin Location: Foot - LEFT Character: Swelling, Pain, Redness Aggravating Symptom(s): Nothing Alleviating Symptom(s): Nothing Associated Signs & Symptoms: Negative - Additional Pertinent History Primary Care Physician: [id number] - Allergy/Home Medications Allergies/Adverse Reactions: Allergies Allergy/AdvReac Type Severity Reaction Status Date / Time Penicillins Allergy Unknown Verified 08/26/18 16:17 Reaction Details Home Medications: Home Medications Aspirin EC TAB* [Ecotrin EC Low Dose 81 MG*] 81 mg PO DAILY 08/26/18 [History Confirmed 08/26/18] Multivitamin/Iron/Folic Acid [Centrum Complete Multivit Tab] 1 each PO DAILY 09/03 [History Confirmed 08/26/18] PMH/Surg Hx/FS Hx/Imm Hx Endocrine/Hematology History: Reports: Hx Diabetes, Hx Anemia - daily ASA Cardiovascular History: Reports: Hx Coronary Artery Disease, Hx Peripheral Vascular Disease, Other Cardiovascular Problems/Disorders - aortic stenosis, hx a-flutter, hyperlipidemia, hx v-tach Denies: Hx Hypertension, Hx Pacemaker/ICD GI History: Reports: Hx Gastroesophageal Reflux Disease, Hx Ulcer - hx of pyloric History: Denies: Hx Renal Disease Musculoskeletal History: Reports: Hx Arthritis, Other Musculoskeletal History - spondylosis, lumbar region Sensory History: Reports: Hx Cataracts - has beginnings, no surgery yet, Hx Contacts or Glasses Denies: Hx Hearing Aid Opthamlomology History: Reports: Hx Cataracts - has beginnings, no surgery yet, Hx Contacts or Glasses Neurological History: Reports: Other Neuro Impairments/Disorders - reports pain radiating down right leg from back issue Psychiatric History: Denies: Hx Panic Disorder - Surgical History Surgery Procedure, Year, and Place: left index finger - PARTIAL AMPUTATED. left ankle mark,. CSP. 1998 cholecystectomy, THEN 2005 - HAD COMMON BILE DUCT REPAIR AND STONES REMOVED. APPENDECTOMY Hx Anesthesia Reactions: No Infectious Disease History: No Infectious Disease History: Denies: Traveled Outside the [place] in Last 30 Days - Family History Known Family History: Positive: Hypertension, Diabetes - Social History Alcohol Use: None Alcohol Amount: QUIT 1992 Substance Use Type: Reports: None Smoking Status (MU): Former Smoker Type: Pipe Amount Used/How Often: reports smoked pipe (full pouch tobacco) daily for 38 years Review of Systems Negative: Fever Skin: Other - POSITIVE: SWELLING AND REDNESS OF LEFT FOOT Positive: Bruising - LEFT FOOT, Other - NEGATIVE: ITCHING All Other Systems Reviewed And Are Negative: Yes Physical Exam - Summary Physical Exam Summary: VITAL SIGNS: Reviewed. GENERAL: Patient is a morbidly obese male who is lying comfortable in the stretcher. Patient is not in any acute respiratory distress. Patient has his left foot wrapped and splinted which was done at his PCP's office today. His daughter has a picture before wrapping in which his left foot is red, swollen and blistered. HEAD AND FACE: No signs of trauma. No ecchymosis, hematomas or skull depressions. No sinus tenderness. EYES: PERRLA, EOMI x 2, No injected conjunctiva, no nystagmus. EARS: Hearing grossly intact. Ear canals and tympanic membranes are within normal limits. MOUTH: Oropharynx within normal limits. NECK: Supple, trachea is midline, no adenopathy, no JVD, no carotid bruit, no c- spine tenderness, neck with full ROM. CHEST: Symmetric, no tenderness at palpation LUNGS: Clear to auscultation bilaterally. No wheezing or crackles. CVS: Regular rate and rhythm, S1 and S2 present, no murmurs or gallops appreciated. ABDOMEN: Soft, non-tender. No signs of distention. No rebound no guarding, and no masses palpated. Bowel sounds are normal. EXTREMITIES: FROM in all major joints, no edema, no cyanosis or clubbing. NEURO: Alert and oriented x 3. No acute neurological deficits. Speech is normal and follows commands. SKIN: Dry and warm Triage Information Reviewed: Yes Vital Signs On Initial Exam: Initial Vitals Temp Pulse Resp BP Pulse Ox 97.8 F 78 18 140/95 95 08/26/18 16:11 08/26/18 16:11 08/26/18 16:11 08/26/18 16:11 08/26/18 16:11 Vital Signs Reviewed: Yes Diagnostics - Vital Signs Vital Signs Temp Pulse Resp BP Pulse Ox 08/26/18 18:36 72 123/58 92 08/26/18 18:00 66 91 08/26/18 17:50 78 125/61 93 08/26/18 17:01 83 93 08/26/18 16:50 84 151/77 93 08/26/18 16:49 81 95 08/26/18 16:11 97.8 F 78 18 140/95 95 - Laboratory Result Diagrams: 08/26/18 20:10 08/26/18 20:10 Lab Statement: Any lab studies that have been ordered have been reviewed, and results considered in the medical decision making process. - Radiology CXR Radiology Interpretation Completed By: ED Physician - Cardiomegaly, no acute process. Pending official report. Course/Dx - Course Course Of Treatment: A 78 y/o male presents to ED c/o blistering, swelling and redness of left foot. In the ED room, the patient has a pulse of 70 BPM, O2 saturation of 95% and blood pressure of 168/79. A CXR revealed. Blood work was done. In the ED course, the patient recieved Morphine, Levaquin, Zofran, Vancomycin and IV fluids. Patient care was discussed with Mckenzie MONDRAGON, who accepts patient for admission. Patient will be admitted with a diagnosis of fracture of left foot and cellulitis of left foot. Patient is agreeable with this. - Diagnoses Provider Diagnoses: Cellulitis of left foot, Fracture of left foot - Physician Notifications Discussed Care Of Patient With: Mckenzie Black Time Discussed With Above Provider: 21:25 Instructed by Provider To: Other - Accepts patient for admission Discharge - Sign-Out/Discharge Documenting (check all that apply): Patient Departure - ADMIT, Sign-Out Patient Signing out patient TO: Mckenzie Black Receiving patient FROM: Caprice Lincoln - Discharge Plan Condition: Stable Disposition: ADMITTED TO [facility] - Attestation Statements Document Initiated by Scribe: Yes Documenting Scribe: Luis Lau Provider For Whom Itzibe is Documenting (Include Credential): Caprice Lincoln MD Scribe Attestation: Luis Moreno, scribed for Caprice Lincoln MD on 08/27/18 at 0003.
[2018-08-26] MEDS ORDERED: Vancomycin(*) 1,000 MG in NS 0.9% 250 ML* 250 ML IVPB ONE (19:45)
[2018-08-26] MEDS ORDERED: Levofloxacin 750 MG IVPREMIX(* 750 MG/150 ML BAG IVPB ONE (19:45)
[2018-08-26] MEDS ORDERED: Morphine INJ* 4 MG/ML 1 ML SYRINGE (NEW SYRINGE VERSION) IV ONE (19:46)
[2018-08-26] MEDS ORDERED: Ondansetron INJ* 2 MG/ML VIAL IV ONE (19:46)
[2018-08-26] MEDS ORDERED: NS 0.9% 1000 ML* 1,000 ML IV ONE ×2 (20:01→21:09)
[2018-08-26 20:18] LABS: ABS Basophils 0.1 10^3/ul (0-0.2); ABS Eosinophils 0.1 10^3/ul (0-0.6); ABS Lymphocytes 1.4 10^3/ul (1.0-4.8); ABS Monocytes 0.8 10^3/ul (0-0.8); ABS Neutrophils 4.9 10^3/ul (1.5-7.7); ABS Nucleated RBC 0 10^3/ul; Eosinophil % 1.2 % (0-6); Hematocrit 34 % (42-52); Hemoglobin 11.3 g/dl (14.0-18.0); Lymphocyte % 18.9 % (25-47); Mean Corpuscular HGB Conc 33 g/dl (31-36); Mean Corpuscular Hemoglobin 29 pg (27-31); Mean Corpuscular Volume 88 fL (80-94); Mean Platelet Volume 8.5 um3 (7.4-10.4); Nucleated Red Blood Cells % 0.2; Platelet Count 246 10^3/ul (150-450); Red Cell Distribution Width 15 % (10.5-15); White Blood Count 7.3 10^3/ul (3.5-10.8)
[2018-08-26 20:28] LABS: INR 1.12 (0.77-1.02)
[2018-08-26 20:45] LABS: EGFR Non-African American 73.8 (>60)
[2018-08-26] MEDS ORDERED: Acetaminophen TAB* 325 MG PO PRN (22:07)
[2018-08-26] MEDS ORDERED: Morphine INJ* 2 MG/ML 1 ML SYRINGE (TWO MG - NEW SYRINGE VERSION) IV PRN (22:07)
[2018-08-26] MEDS ORDERED: Magnesium Hydroxide LIQ* 30 ML UDC PO PRN (22:07)
[2018-08-26] MEDS ORDERED: Ondansetron INJ* 2 MG/ML VIAL IV PRN (22:07)
[2018-08-26] MEDS ORDERED: Albuterol 2.5 MG/3 ML NEB.SOL* (0.083%) INH PRN (22:07)
[2018-08-26] MEDS ORDERED: Dextrose 50% Syringe 50 ML* 25 GM/50 ML SYRINGE IV PUSH PRN (22:26)
[2018-08-26] MEDS ORDERED: Vancomycin per Pharmacy* NOTE FOLLOW UP SCH (23:00)
[2018-08-26] MEDS ORDERED: Morphine VIAL* 4 MG/ML VIAL (1 ml vial) IV PRN (23:32)
--- NOTE | 2018-08-27 00:34 | HP ---
CC: Dr. Momo Ro; Dr. Callahan, Orthopedic * ADMISSION HISTORY AND PHYSICAL: DATE OF ADMISSION: 08/26/18 PATIENT OF ADMITTING HOSPITALIST: Dr. Lily Love.* (DICTATED BY GIANCARLO RABAGO) PRIMARY CARE PROVIDER: Dr. Momo Ro. CHIEF COMPLAINT: Left foot pain, swelling, and redness. HISTORY OF PRESENT ILLNESS: Mr. 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 The patient's left foot was caught on the machine as he was going down and he noted that his foot twisted for which he came to the emergency room for evaluation. He had an x-ray back then that revealed multiple metatarsal fractures as well as calcaneal fracture for which he was put on a temporary splint and referred to [facility]. The patient had an appointment today with Dr. Callahan and he presented to the office for evaluation. His splint was taken off and he immediately noticed to have significant redness to the dorsal aspect of his foot with associated erythema, swelling, and a big area of blisters on the dorsal aspect. The patient himself denied any significant pain since the injury. He denied any fever or chills. He is an insulin-dependent diabetic, who takes Lantus twice daily in addition to metformin. He says to me that his blood sugar has been a little bit higher than average recently. Given his presentation and the finding of possible cellulitis, the patient was referred to the emergency room for further evaluation. He came to the ED. His vital signs were stable showing no evidence of fever or tachycardia. His laboratory workup showed normal white count of 7,000; however, his C-reactive protein was markedly elevated at 128. The patient had a CT scan of the left lower extremity that revealed multiple foot fractures as well as surgical fixation hardware and fusion involving the distal tibia and the calcaneus and talus from prior injury. There was no soft tissue abscess noted. We were asked to see the patient for further evaluation and to consider admission for treatment of left foot cellulitis. PAST MEDICAL HISTORY: Significant for hypertension, hyperlipidemia, coronary artery disease for which the patient had followed with Dr. Mclaughlin with recent echocardiogram in April of 2017, also history of type 2 insulin-dependent diabetes mellitus, ventricular tachycardia, osteoarthritis. PAST SURGICAL HISTORY: Significant for neck surgery, left ankle surgery with hardware attached to the tibia and calcaneus, appendectomy, cholecystectomy, lumbar spine diskectomy in January of this year. CURRENT MEDICATIONS: His medications at home include: 1. Aspirin 81 mg p.o. daily. 2. Lipitor 80 mg p.o. daily. 3. Fenofibrate 145 mg p.o. daily. 4. Insulin Levemir 20 units subcu q.p.m. and insulin Levemir 34 units subcu q.a.m. 5. Glucophage 500 mg p.o. b.i.d. 6. Metoprolol succinate 50 mg p.o. q.a.m. 7. Multivitamin with iron 1 tablet p.o. daily. 8. Starlix 60 mg p.o. t.i.d. 9. Protonix 40 mg p.o. daily. ALLERGIES: He described allergies to PENICILLIN, which he tells me it was possible rash when he was young. Denies any respiratory issues using it. FAMILY HISTORY: Reviewed. Significant for heart disease and cancer. SOCIAL HISTORY: The patient is single. 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 He is a former smoker, who quit back in 1992. He denies alcohol use and caffeine intake is minimal. He describes his nephew, Eren, as healthcare proxy carrier and he wishes to be a full code. REVIEW OF SYSTEMS: See HPI, otherwise 12-point review of systems were examined and they were essentially negative. PHYSICAL EXAMINATION GENERAL: He is a pleasant, obese, elderly male, in no acute distress or discomfort at the time of admission. VITAL SIGNS: Reveal a temperature of 97.8, blood pressure of 123/58, pulse of 72, respirations of 20 with O2 sat of 92% on room air. HEENT: Head is normocephalic, atraumatic. Sclerae anicteric. PERRLA. EOMs intact. Oropharynx is pink and moist. NECK: Supple. Trachea midline. No cervical adenopathy or thyromegaly. LUNGS: Clear to auscultation bilaterally. HEART: Regular rate and rhythm. Normal S1 and S2 without rubs, murmurs, or gallops. BACK: With normal curvature and no CVA tenderness. ABDOMEN: Round, obese, seem slightly protruded, also nondistended. Bowel sounds were active in all quadrants. Old scars from prior open cholecystectomy and open appendectomy were noted. There is a small umbilical hernia, reducible. No evidence of bowel obstruction. EXTREMITIES: Without cyanosis, clubbing, or edema. Left lower extremity with posterior splint in place, wrapped with clean Jim wrap. I did review pictures taken by the patient on his cellphone at orthopedic office. There is an extensive area of erythema and induration on the dorsal aspect of the foot extending to just above the ankle. There is a large bulla on the dorsal side with evidence of blisters. Pedal pulse could not be felt at this time. NEUROLOGIC: He is awake, alert, and oriented x3. Tongue is midline. Hand abstracter is equal bilaterally. Sensation is intact. RECTAL: Exam deferred at this time. LABORATORY DATA: CBC with white count of 7,300, hemoglobin 11.3, hematocrit of 34, and platelets of 246. INR of 1.1. Chemistry panel within normal limits except with slightly elevated BUN of 29, glucose 254, lactic acid 2.3, and elevated CRP at 128. ACCESSORY DIAGNOSTIC DATA: CT scan of the left lower extremity revealed multiple foot fractures. No soft tissue abscess. IMPRESSION: A 78-year-old gentleman with past medical history significant for hypertension, hyperlipidemia, coronary artery disease, and insulin-dependent diabetes mellitus, who sustained a fall last week, had a splint placed in the emergency room, presented to the orthopedic office today for evaluation, found to have left foot cellulitis and will be admitted under hospitalist services for the following. ASSESSMENT AND PLAN: 1. Left foot cellulitis. The patient will be covered empirically with antibiotic awaiting the findings of the wound cultures. He received a dose of vancomycin in the emergency room and I contacted the pharmacy to continue coverage with vancomycin as per pharmacy policy. I will also start him on Ancef 1 g q.8 hours awaiting culture results. He also received a single dose of Levaquin in the emergency room. He does not appear septic and his lactic acid is slightly elevated for which he received 2 L of IV fluid in the emergency room. I will continue hydrating him and he will have consistent carbohydrate diet. 2. Left foot fracture. X-rays and CT scan reviewed. Management is per ortho team. I anticipate no surgical intervention is planned any time soon given his findings of cellulitis. I will await the recommendation of the orthopedic team after they see the patient tomorrow. 3. Hypertension. I will continue his metoprolol. 4. Coronary artery disease. We will continue his metoprolol and aspirin. The patient is no longer on Plavix since his back surgery back in January. 5. Hyperlipidemia. I will continue his statin coverage. 6. Insulin-dependent diabetes mellitus, type 2. I will continue his coverage with Lantus per home dose and will stop his metformin and cover him per sliding scale with Humalog. He had hyperglycemia upon admission, which would be anticipated given his cellulitis and I stressed with him the necessity to achieve a good glycemic control to control his infection. 7. Gastroesophageal reflux disease. I will continue his PPI coverage. 8. Obesity with BMI greater than 35 as well as back pain. We will provide supportive care with assistance to the chair since the patient cannot provide weightbearing on his left foot. 9. DVT prophylaxis. The patient is a high risk and will be covered with subcu heparin. 10. Code status. He wishes to be a full code. 11. Disposition. Admit to medical floor under hospitalist services for treatment of left foot cellulitis. Await Orthopedic consultation in the morning and further recommendation regarding his treatment. TIME SPENT: Approximately 60 minutes were spent admitting this patient of which greater than 50% of that time was taking history and performing physical exam. I went on and discussed the case with my attending, who agreed to plan of care. GIANCARLO RABAGO [id number]/CPS #: [id number] JOVANI
[2018-08-27] MEDS: ceFAZolin 1 GM in Dextrose (*) 1 GM/50 ML BAG IVPB SCH ×4 (00:43→23:39)
[2018-08-27] MEDS: Insulin GLARGINE(*) 1 UNITS UNIT SUBCUT SCH ×3 (00:43→22:29)
[2018-08-27] MEDS ORDERED: Vancomycin(*) 1,250 MG in NS 0.9% 250 ML* 250 ML IVPB SCH (06:00)
[2018-08-27] MEDS: Heparin VIAL(*) 5000 UNITS/ML VIAL (FIVE THOUSAND) SUBCUT SCH ×3 (06:02→22:29)
[2018-08-27 07:01] LABS: ABS Basophils 0 10^3/ul (0-0.2); ABS Eosinophils 0.1 10^3/ul (0-0.6); ABS Monocytes 0.7 10^3/ul (0-0.8); ABS Neutrophils 4.1 10^3/ul (1.5-7.7); ABS Nucleated RBC 0 10^3/ul; Eosinophil % 1.9 % (0-6); Hematocrit 32 % (42-52); Hemoglobin 10.7 g/dl (14.0-18.0); Lymphocyte % 16.9 % (25-47); Mean Corpuscular HGB Conc 34 g/dl (31-36); Mean Corpuscular Hemoglobin 30 pg (27-31); Mean Corpuscular Volume 87 fL (80-94); Mean Platelet Volume 8.9 um3 (7.4-10.4); Nucleated Red Blood Cells % 0; Platelet Count 213 10^3/ul (150-450); Red Blood Count 3.64 10^6/ul (4.00-5.40); Red Cell Distribution Width 15 % (10.5-15)
[2018-08-27 07:15] LABS: EGFR Non-African American 79.4 (>60)
[2018-08-27] MEDS: oxyCODONE/Acetamin 5/325 MG* TAB PO PRN (07:53)
--- NOTE | 2018-08-27 07:54 | RAD ---
HISTORY: cough COMPARISONS: August 21, 2018 VIEWS: 1: frontal AP view of the chest at 7:52 PM FINDINGS: LINES AND TUBES: None. CARDIOMEDIASTINAL SILHOUETTE: The cardiac silhouette is enlarged. The cardiomediastinal silhouette is otherwise normal for portable technique. PLEURA: The costophrenic angles are sharp. No pleural abnormalities are noted. LUNG PARENCHYMA: The lungs are clear. ABDOMEN: The upper abdomen is clear. There is no subphrenic gas. BONES AND SOFT TISSUES: No bone or soft tissue abnormalities are noted. IMPRESSION: CARDIOMEGALY R2
[2018-08-27] MEDS ORDERED: NATEGLINIDE 60 MG PO SCH (08:00)
[2018-08-27] MEDS: Atorvastatin* 80 MG TAB PO SCH (08:27)
[2018-08-27] MEDS: Metoprolol Succinate XL TAB* 50 MG PO SCH (08:28)
[2018-08-27] MEDS: Aspirin EC TAB* 81 MG TAB.EC PO SCH (08:28)
[2018-08-27] MEDS: Omeprazole CAP* 20 MG PO SCH (08:28)
[2018-08-27] MEDS: Insulin LISPRO* 1 UNITS UNIT SUBCUT SCH ×4 (08:29→22:28)
[2018-08-27] MEDS ORDERED: Fenofibrate(NF) 145 MG TAB PO SCH (09:00)
[2018-08-27] MEDS: PTO:Fenofibrate(NF) 145 MG TAB PO SCH (12:56)
[2018-08-27] MEDS: NATEGLINIDE 60 MG PO SCH ×2 (12:56→16:50)
--- NOTE | 2018-08-27 13:44 | PN ---
Subjective Date of Service: 08/27/18 Interval History: HOSPITALIST PROGRESS NOTE Patient seen and examined at bedside. Care reviewed and d/w Lidya Mccloud RN. He offers no new complaints today. Left foot pain is controlled. Family History: Unchanged from Admission Social History: Unchanged from Admission Past Medical History: Unchanged from Admission Objective Active Medications: Acetaminophen (Tylenol Tab*) 975 mg PO Q4H PRN PRN Reason: FEVER/PAIN Albuterol (Ventolin 2.5 Mg/3 Ml Neb.Sintia*) 2.5 mg INH [id number] AWAKE PRN PRN Reason: sob/wheezing Aspirin (Aspirin Ec Tab*) 81 mg PO DAILY [facility] Last Admin: 08/27/18 08:28 Dose: 81 mg Atorvastatin Calcium (Lipitor*) 80 mg PO QAM [facility] Last Admin: 08/27/18 08:27 Dose: 80 mg Dextrose (D50w Syringe 50 Ml*) 12.5 gm IV PUSH .FOR FS < 60 - SS PRN PRN Reason: FS < 60 Fenofibrate (Tricor(Nf)) 145 mg PO QAM [facility]; Protocol Last Admin: 08/27/18 12:56 Dose: 145 mg Heparin Sodium (Porcine) (Heparin Vial(*)) 5,000 units SUBCUT Q8HR [facility] Last Admin: 08/27/18 06:02 Dose: 5,000 units Cefazolin Sodium/Dextrose (Kefzol 1 Gm In Dextrose Duplex (*)) 1 gm in 50 mls @ 200 mls/hr IVPB Q8H [facility] Last Admin: 08/27/18 09:30 Dose: 200 mls/hr Insulin Glargine (Lantus(*)) 34 units SUBCUT Q24H [facility] Last Admin: 08/27/18 08:28 Dose: 34 units Insulin Glargine (Lantus(*)) 20 units SUBCUT 2100 [facility] Last Admin: 08/27/18 00:43 Dose: 20 unit Insulin Human Lispro (Humalog*) 0 units SUBCUT ACHS [facility]; Protocol Last Admin: 08/27/18 12:57 Dose: 6 units Magnesium Hydroxide (Milk Of Magnesia Liq*) 30 ml PO Q4H PRN PRN Reason: CONSTIPATION Metoprolol Succinate (Toprol Xl Tab*) 50 mg PO QAM [facility] Last Admin: 08/27/18 08:28 Dose: 50 mg Morphine Sulfate (Morphine Vial*) 2 mg IV Q4H PRN PRN Reason: PAIN Nateglinide (Starlix(Nf)) 60 mg PO TID WITH MEALS [facility] Last Admin: 08/27/18 12:56 Dose: 60 mg Omeprazole (Prilosec Cap*) 20 mg PO QAM [facility] Last Admin: 08/27/18 08:28 Dose: 20 mg Ondansetron HCl (Zofran Inj*) 4 mg IV Q4H PRN PRN Reason: NAUSEA/VOMITING Oxycodone/Acetaminophen (Percocet 5/325 Tab*) 2 tab PO Q6H PRN PRN Reason: Pain Last Admin: 08/27/18 07:53 Dose: 2 tab Pharmacy Profile Note (Vancomycin Trough Check) 1 note FOLLOW UP 529 ONE Stop: 08/28/18 05:31 Vital Signs - 8 hr 08/27/18 08/27/18 08/27/18 07:21 07:53 08:00 Temperature 97.9 F Pulse Rate 80 Respiratory 16 18 18 Rate Blood Pressure 132/61 (mmHg) O2 Sat by Pulse 97 97 Oximetry 08/27/18 13:17 Temperature Pulse Rate Respiratory 16 Rate Blood Pressure (mmHg) O2 Sat by Pulse Oximetry Oxygen Devices in Use Now: None Appearance: Elderly gentleman sitting up in bed in NAD. Eyes: No Scleral Icterus Ears/Nose/Mouth/Throat: Mucous Membranes Moist Neck: Trachea Midline Respiratory: Symmetrical Chest Expansion and Respiratory Effort, Clear to Auscultation Cardiovascular: RRR - Normal S1 and S2 Extremities: - - LLE in soft splint, opened by Ortho PA - mild erythema dorsum of the foot extending to lateral aspect, with clear fluid filled blister Result Diagrams: 08/27/18 06:31 08/27/18 06:31 Assess/Plan/Problems-Billing Assessment: Mr Freeman is a 78yo M with PMH of HTN, HLD, CAD, Vtach, Type 2 DM, recent fall with displaced fractures of left 2nd, 3rd and 5th metatarsal bones, who presented to ED with left foot cellulitis. - Patient Problems (1) Cellulitis of left foot Comment: - Continue Vancomycin and Cefazolin. - ID consult requested. (2) Metatarsal bone fracture Comment: - NWB LLE. - Continue soft splint until cellulitis improves. (3) HTN (hypertension) Comment: - Controlled - continue Metoprolol. (4) CAD (coronary artery disease) Comment: - Continue Aspirin, Metoprolol, and Atorvastatin. (5) Diabetes Comment: - Continue Lantus and Lispro SS. (6) DVT prophylaxis Comment: - SQ heparin. (7) Full code status Status and Disposition: Inpatient.
--- NOTE | 2018-08-27 13:57 | PN ---
Progress Note - Progress Note Date of Service: 08/27/18 SOAP: Subjective: []Patient seen and examined at bedside. His foot pain is well controlled today. Denies any fever, chills, CP, SOB, dizziness, nausea. he has been afebrile since admission. Objective: []General: Well appearing, NAD LLE: Left foot with a posterior slab splint. Fracture blisters and Cellulitis of exposed dorsum of the foot remains. No erythema proximal to splint. Sensation intact and capillary refill less than two seconds of exposed toes Right calf without erythema, edema or palpable cords Assessment: [] Left foot multiple fractures - medial cuneiform, middle cuneiform, proximal and mid first metatarsal, proximal and distal second metatarsal, proximal and mid third metatarsal, proximal fourth metatarsal, and proximal fifth metatarsal. Plan: []NWB LLE Nonoperative fractures. Will need to follow up with Dr Callahan after discharge Continue IV abx Once cellulitis has improved will place new well padded splint and he will remain NWB Vital Signs Temp 97.5 F 08/27/18 11:19 Pulse 74 08/27/18 11:19 Resp 16 08/27/18 13:17 BP 118/102 08/27/18 11:19 Pulse Ox 95 08/27/18 11:19 Intake & Output 08/26/18 08/27/18 08/27/18 18:59 06:59 18:59 Intake Total 1150 1195 Output Total 550 1800 Balance 600 -605 Weight 250 lb 257 lb 7 oz Intake: IV Fluids 1150 595 all fluids 595 Oral 0 600 Output: Urine 550 1800 Other: # Bowel Movements 0 0 Laboratory Last Values WBC 6.0 10^3/ul (3.5-10.8) 08/27/18 06:31 RBC 3.64 10^6/ul (4.00-5.40) L 08/27/18 06:31 Hgb 10.7 g/dl (14.0-18.0) L 08/27/18 06:31 Hct 32 % (42-52) L 08/27/18 06:31 MCV 87 fL (80-94) 08/27/18 06:31 MCH 30 pg (27-31) 08/27/18 06:31 MCHC 34 g/dl (31-36) 08/27/18 06:31 RDW 15 % (10.5-15) 08/27/18 06:31 Plt Count 213 10^3/ul (150-450) 08/27/18 06:31 MPV 8.9 um3 (7.4-10.4) 08/27/18 06:31 Neut % (Auto) 68.6 % (38-83) 08/27/18 06:31 Lymph % (Auto) 16.9 % (25-47) L 08/27/18 06:31 Moca % (Auto) 12.0 % (0-7) H 08/27/18 06:31 Eos % (Auto) 1.9 % (0-6) 08/27/18 06:31 Baso % (Auto) 0.6 % (0-2) 08/27/18 06:31 Absolute Neuts (auto) 4.1 10^3/ul (1.5-7.7) 08/27/18 06:31 Absolute Lymphs (auto) 1.0 10^3/ul (1.0-4.8) 08/27/18 06:31 Absolute Monos (auto) 0.7 10^3/ul (0-0.8) 08/27/18 06:31 Absolute Eos (auto) 0.1 10^3/ul (0-0.6) 08/27/18 06:31 Absolute Basos (auto) 0 10^3/ul (0-0.2) 08/27/18 06:31 Absolute Nucleated RBC 0 10^3/ul 08/27/18 06:31 Nucleated RBC % 0 08/27/18 06:31 INR (Anticoag Therapy) 1.12 (0.77-1.02) H 08/26/18 20:10 APTT 32.4 seconds (26.0-36.3) 08/26/18 20:10 Sodium 140 mmol/L (135-145) 08/27/18 06:31 Potassium 4.0 mmol/L (3.5-5.0) 08/27/18 06:31 Chloride 108 mmol/L (101-111) 08/27/18 06:31 Carbon Dioxide 26 mmol/L (22-32) 08/27/18 06:31 Anion Gap 6 mmol/L (2-11) 08/27/18 06:31 BUN 24 mg/dL (6-24) 08/27/18 06:31 Creatinine 0.92 mg/dL (0.67-1.17) 08/27/18 06:31 Est GFR ( Amer) 96.0 (>60) 08/27/18 06:31 Est GFR (Non-Af Amer) 79.4 (>60) 08/27/18 06:31 BUN/Creatinine Ratio 26.1 (8-20) H 08/27/18 06:31 Glucose 193 mg/dL (70-100) H 08/27/18 06:31 POC Glucose (mg/dL) 201 mg/dL (70-100) H 08/27/18 12:23 Lactic Acid 1.5 mmol/L (0.5-2.0) 08/26/18 23:53 Calcium 9.1 mg/dL (8.6-10.3) 08/27/18 06:31 Total Bilirubin 0.70 mg/dL (0.2-1.0) 08/26/18 20:10 AST 20 U/L (13-39) 08/26/18 20:10 ALT 19 U/L (7-52) 08/26/18 20:10 Alkaline Phosphatase 79 U/L (34-104) 08/26/18 20:10 C-Reactive Protein 128.23 mg/L (<8.01) H 08/26/18 20:10 Total Protein 7.0 g/dL (6.4-8.9) 08/26/18 20:10 Albumin 3.7 g/dL (3.2-5.2) 08/26/18 20:10 Globulin 3.3 g/dL (2-4) 08/26/18 20:10 Albumin/Globulin Ratio 1.1 (1-3) 08/26/18 20:10 Diagnostic Studies: Patient Name: DARRYL MCCRARY Medical Record#: [id number] Ordering Physician: Pat MONDRAGON Acct.#: [id number] : 1940 Age: 78 Sex: M Location: EMERGENCY DEPARTMENT Exam Date: 08/26/181733 ADM Status: REG ER Order Information: CT EXTREMITY LOWER LEFT WO Accession Number: [id number] CPT: 05852 EXAM: CT Left Lower Extremity Without Intravenous Contrast, Foot CLINICAL HISTORY: 78 years old, male; Injury or trauma; Fall; Follow-up exam; Fracture, traumatic; Closed fracture; Foot; Left; Patient HX: Fall from combine, metarsal FX. HX ankle mark placement; Additional info: Left metatarsal fractures, cellulitis TECHNIQUE: Axial computed tomography images of the left foot without intravenous contrast. All CT scans at this facility use at least one of these dose optimization techniques: automated exposure control; mA and/or kV adjustment per patient size (includes targeted exams where dose is matched to clinical indication); or iterative reconstruction. COMPARISON: DX HIEU L FOOT LEFT 3+ VWS 08/21/2018 7:30 PM FINDINGS: Limitations: [place] artifact from orthopedic fixation hardware. Bones/joints: Surgical fixation hardware and fusion involving the distal tibia, calcaneus, and talus. Multiple fractures involving the medial cuneiform, middle cuneiform, proximal and mid first metatarsal, proximal and distal second metatarsal, proximal and mid third metatarsal, proximal fourth metatarsal, and proximal fifth metatarsal. No dislocation. Soft tissues: No soft tissue abscess. No radiopaque foreign body. IMPRESSION: 1. Multiple foot fractures. 2. No soft tissue abscess.
--- NOTE | 2018-08-27 16:42 | CONS ---
CONSULTATION REPORT: DATE OF CONSULT: 08/27/18 REQUESTING PROVIDER: GIANCARLO Buenrostro. CONSULTING SERVICE: Infectious Disease. REASON FOR CONSULT: Cellulitis. IMPRESSION: 1. Left calcaneus fracture, which was casted. Upon removal of the cast, he was found to have cellulitis. A CT scan was done, which showed fractures and no soft tissue abscess. There was a fusion hardware from previous fracture involving distal tibia, calcaneus, and talus. There apparently were some bulla present, which could be related to fracture or Streptococcal infection. 2. Diabetes. 3. Peripheral vascular disease. RECOMMENDATIONS: Ancef 1 g IV every 8 hours. We will stop his vancomycin, follow his foot exam. Try to coordinate with Orthopedics at getting a look at his foot. 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 On the 08/21/18, his cast had followup with Dr. Callahan, found to have cellulitis, directed to the hospital for admission. His white blood count when he arrived was 7. He is afebrile. C-reactive protein was 130. He had felt kind of sick, but no fevers, chills, or sweats that he can particularly identify. He has been on vancomycin and Ancef here without complaints. He has no foot pain. PAST MEDICAL HISTORY: 1. Obesity. 2. Diabetes with peripheral neuropathy. 3. History of left ankle fracture, status post open reduction and internal fixation about 10 years ago. 4. Left calcaneus fracture. 5. Hypertension. 6. Hyperlipidemia. 7. Coronary artery disease. 8. Ventricular tachycardia. 9. Osteoarthritis. 10. Insulin-dependent diabetes. 11. Cervical spine surgery. 12. Status post appendectomy. 13. Status post cholecystectomy. 14. Status post lumbar diskectomy. MEDICATIONS: 1. Tylenol. 2. Albuterol. 3. Aspirin. 4. Lipitor. 5. Fenofibrate. 6. Heparin subcutaneous injection. 7. Insulin glargine. 8. Cefazolin 1 g IV every 8 hours. 9. Magnesium. 10. Metoprolol. 11. Mitiglinide. 12. Omeprazole. 13. Zofran. 14. Vancomycin. ALLERGIES: PENICILLIN caused rash as a child. Tolerating cephalosporins. FAMILY HISTORY: No recurrent infections. SOCIAL HISTORY: He lives in [place], he has a farm, still farming. Nonsmoker, no injection, drugs. REVIEW OF SYSTEMS: All negative except as noted above in the history of present illness. PHYSICAL EXAM: Vital Signs: Temperature 37, heart rate 80, respiratory rate 16 , blood pressure 130/60, oxygen saturation 97% on room air. In general, he is awake, not in distress. Neurologic: He is oriented x3, follows all commands. Decreased sensation in both feet to light touch. HEENT: There is no conjunctival hemorrhage. Oropharynx: Without lesions. Neck is supple without mass. Heart is regular rate and rhythm without murmurs, rubs, or gallops. Lungs are clear to auscultation bilaterally. Abdomen: Soft, nontender, nondistended. There is bowel sounds present. Skin: There is no rash or splinter hemorrhage. Musculoskeletal: Left foot is casted. LABORATORY DATA: Creatinine is 0.9, CRP is 130. White blood cell count is 6, hemoglobin 10, platelets 215. Please see impression and recommendations as outlined above. Thanks for asking me to see Mr. Freeman in consultation. [id number]/[facility] #: [id number] JOVANI
[2018-08-27 17:30] LABS: Urine Appearance Clear; Urine Blood Negative (Negative); Urine Color Yellow; Urine Ketones Negative (Negative); Urine Protein Negative (Negative); Urine Specific Gravity 1.023 (1.010-1.030); Urine Urobilinogen Negative (Negative)
[2018-08-28] MEDS: Heparin VIAL(*) 5000 UNITS/ML VIAL (FIVE THOUSAND) SUBCUT SCH ×3 (05:19→21:52)
[2018-08-28] MEDS ORDERED: Vancomycin Trough Check NOTE FOLLOW UP ONE (05:30)
[2018-08-28] MEDS: Aspirin EC TAB* 81 MG TAB.EC PO SCH (08:23)
[2018-08-28] MEDS: Atorvastatin* 80 MG TAB PO SCH (08:23)
[2018-08-28] MEDS: NATEGLINIDE 60 MG PO SCH ×3 (08:24→16:25)
[2018-08-28] MEDS: PTO:Fenofibrate(NF) 145 MG TAB PO SCH (08:24)
[2018-08-28] MEDS: ceFAZolin 1 GM in Dextrose (*) 1 GM/50 ML BAG IVPB SCH ×2 (08:25→17:44)
[2018-08-28] MEDS: Insulin LISPRO* 1 UNITS UNIT SUBCUT SCH ×4 (08:26→21:52)
[2018-08-28] MEDS: Insulin GLARGINE(*) 1 UNITS UNIT SUBCUT SCH ×2 (09:08→21:52)
[2018-08-28] MEDS: oxyCODONE/Acetamin 5/325 MG* TAB PO PRN ×2 (09:10→17:50)
[2018-08-28] MEDS: Metoprolol Succinate XL TAB* 50 MG PO SCH (09:10)
[2018-08-28] MEDS: Omeprazole CAP* 20 MG PO SCH (09:10)
--- NOTE | 2018-08-28 15:01 | PN ---
Subjective Date of Service: 08/28/18 Interval History: HOSPITALIST PROGRESS NOTE Patient seen and examined at bedside. Care reviewed and d/w Michelet Hillman RN. He offers no new complaints today, pain is controlled. Family History: Unchanged from Admission Social History: Unchanged from Admission Past Medical History: Unchanged from Admission Objective Active Medications: Acetaminophen (Tylenol Tab*) 975 mg PO Q4H PRN PRN Reason: FEVER/PAIN Albuterol (Ventolin 2.5 Mg/3 Ml Neb.Sintia*) 2.5 mg INH [id number] AWAKE PRN PRN Reason: sob/wheezing Aspirin (Aspirin Ec Tab*) 81 mg PO DAILY [facility] Last Admin: 08/28/18 08:23 Dose: 81 mg Atorvastatin Calcium (Lipitor*) 80 mg PO QAM [facility] Last Admin: 08/28/18 08:23 Dose: 80 mg Dextrose (D50w Syringe 50 Ml*) 12.5 gm IV PUSH .FOR FS < 60 - SS PRN PRN Reason: FS < 60 Fenofibrate (Tricor(Nf)) 145 mg PO QAM [facility]; Protocol Last Admin: 08/28/18 08:24 Dose: 145 mg Heparin Sodium (Porcine) (Heparin Vial(*)) 5,000 units SUBCUT Q8HR [facility] Last Admin: 08/28/18 13:49 Dose: 5,000 units Cefazolin Sodium/Dextrose (Kefzol 1 Gm In Dextrose Duplex (*)) 1 gm in 50 mls @ 200 mls/hr IVPB Q8H [facility] Last Admin: 08/28/18 08:25 Dose: 200 mls/hr Insulin Glargine (Lantus(*)) 34 units SUBCUT Q24H [facility] Last Admin: 08/28/18 09:08 Dose: 34 units Insulin Glargine (Lantus(*)) 20 units SUBCUT 2100 [facility] Last Admin: 08/27/18 22:29 Dose: 20 unit Insulin Human Lispro (Humalog*) 0 units SUBCUT ACHS [facility]; Protocol Last Admin: 08/28/18 12:11 Dose: 3 units Magnesium Hydroxide (Milk Of Magnesia Liq*) 30 ml PO Q4H PRN PRN Reason: CONSTIPATION Metoprolol Succinate (Toprol Xl Tab*) 50 mg PO QAM [facility] Last Admin: 08/28/18 09:10 Dose: 50 mg Morphine Sulfate (Morphine Vial*) 2 mg IV Q4H PRN PRN Reason: PAIN Nateglinide (Starlix(Nf)) 60 mg PO TID WITH MEALS [facility] Last Admin: 08/28/18 11:57 Dose: 60 mg Omeprazole (Prilosec Cap*) 20 mg PO QAM [facility] Last Admin: 08/28/18 09:10 Dose: 20 mg Ondansetron HCl (Zofran Inj*) 4 mg IV Q4H PRN PRN Reason: NAUSEA/VOMITING Oxycodone/Acetaminophen (Percocet 5/325 Tab*) 2 tab PO Q6H PRN PRN Reason: Pain Last Admin: 08/28/18 09:10 Dose: 2 tab Vital Signs - 8 hr 08/28/18 08/28/18 08/28/18 07:32 08:00 09:10 Temperature 97.6 F Pulse Rate 75 Respiratory 20 20 16 Rate Blood Pressure 114/53 (mmHg) O2 Sat by Pulse 96 96 Oximetry 08/28/18 08/28/18 11:15 11:58 Temperature 97.4 F Pulse Rate 69 Respiratory 18 16 Rate Blood Pressure 129/50 (mmHg) O2 Sat by Pulse 95 Oximetry Oxygen Devices in Use Now: None Appearance: Elderly gentleman sitting up in a chair in [facility]. Eyes: No Scleral Icterus Ears/Nose/Mouth/Throat: Mucous Membranes Moist Neck: Trachea Midline Respiratory: Symmetrical Chest Expansion and Respiratory Effort, Clear to Auscultation Cardiovascular: RRR - Normal S1 and S2 Extremities: - - Left foot erythema is less intense than yesterday. Still has significant edema, ecchymosis and blisters. See pictures. Good pulses and capillary refill Neurological: Alert and Oriented x 3, NL Muscle Strength and Tone Result Diagrams: 08/27/18 06:31 08/27/18 06:31 Diagnostic Imaging: Assess/Plan/Problems-Billing Assessment: Mr Freeman is a 78yo M with PMH of HTN, HLD, CAD, Vtach, Type 2 DM, recent fall with displaced fractures of left 2nd, 3rd and 5th metatarsal bones, who presented to ED with left foot cellulitis. - Patient Problems (1) Cellulitis of left foot Comment: - ID consult appreciated. - Continue Cefazolin - will switch to cephalexin on discharge. (2) Metatarsal bone fracture Comment: - NWB LLE. - Continue soft splint until cellulitis improves. (3) HTN (hypertension) Comment: - Controlled - continue Metoprolol. (4) CAD (coronary artery disease) Comment: - Continue Aspirin, Metoprolol, and Atorvastatin. (5) Diabetes Comment: - Controlled. - Hb A1c 6.9. - Continue Lantus and Lispro SS. (6) DVT prophylaxis Comment: - SQ heparin. (7) Full code status Status and Disposition: Inpatient.
[2018-08-29] MEDS: ceFAZolin 1 GM in Dextrose (*) 1 GM/50 ML BAG IVPB SCH ×2 (00:06→08:19)
[2018-08-29] MEDS: Heparin VIAL(*) 5000 UNITS/ML VIAL (FIVE THOUSAND) SUBCUT SCH (05:56)
[2018-08-29] MEDS: oxyCODONE/Acetamin 5/325 MG* TAB PO PRN (06:01)
[2018-08-29] MEDS: Insulin LISPRO* 1 UNITS UNIT SUBCUT SCH ×2 (08:08→12:04)
[2018-08-29] MEDS: Insulin GLARGINE(*) 1 UNITS UNIT SUBCUT SCH (08:19)
[2018-08-29] MEDS: Omeprazole CAP* 20 MG PO SCH (08:19)
[2018-08-29] MEDS: Atorvastatin* 80 MG TAB PO SCH (08:19)
[2018-08-29] MEDS: NATEGLINIDE 60 MG PO SCH ×2 (08:19→12:05)
[2018-08-29] MEDS: Aspirin EC TAB* 81 MG TAB.EC PO SCH (08:19)
[2018-08-29] MEDS: Metoprolol Succinate XL TAB* 50 MG PO SCH (08:19)
[2018-08-29] MEDS: PTO:Fenofibrate(NF) 145 MG TAB PO SCH (08:20)
[2018-08-29 12:18] VITALS: BP 124/46
--- NOTE | 2018-08-31 04:14 | DS ---
CC: Momo Ro MD; Feliberto Callahan MD; Dr. Shea DISCHARGE SUMMARY: DATE OF ADMISSION: 08/26/18 DATE OF DISCHARGE: 08/29/18 PRIMARY CARE PROVIDER: Momo Ro MD ORTHOPEDIST: Feliberto Callahan MD DISCHARGE DIAGNOSES: 1. Left lower extremity cellulitis. 2. Status post multiple left foot fractures. SECONDARY DIAGNOSES: 1. Hypertension. 2. Hyperlipidemia. 3. Coronary artery disease. 4. Type 2 diabetes. 5. Ventricular tachycardia. 6. Osteoarthritis. 7. Status post cervical spine surgery. 8. Status post left ankle surgery. 9. Status post appendectomy. 10. Cholecystectomy. 11. Lumbar spine diskectomy in January 2018. MEDICATION LIST: 1. Aspirin 81 mg p.o. daily. 2. Multivitamin 1 tablet p.o. daily. 3. Atorvastatin 80 mg p.o. daily. 4. Levemir 34 units subcutaneously in the morning, 20 units at bedtime. 5. TriCor 145 mg p.o. daily. 6. Starlix 60 mg p.o. t.i.d. with meals. 7. Metoprolol succinate 50 mg p.o. q.a.m. 8. Metformin 500 mg p.o. b.i.d. 9. Pantoprazole 40 mg p.o. q.a.m. New medications: 1. Percocet 5/225 mg 1 to 2 tablets p.o. q.4 hours p.r.n. severe pain, MDD 8 tablets. 2. Cephalexin 500 mg p.o. t.i.d. for 7 days. HOSPITAL COURSE: Mr. 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 The patient was seen in the emergency room where he was diagnosed with multiple metatarsal fract ures as well as calcaneal fracture for which he was put on a temporary splint and referred to orthope dist for evaluation. On 08/26/18, he went to see Dr. Callahan and when the splint was open, he was n oted to have significant redness of the dorsal aspect of the foot with swelling, fractured blisters o n the dorsal aspect. For more details about his presentation, I refer you to his history and physica l. The patient was admitted to the medical floor and he had a CT of the lower extremities that showed mu ltiple foot fractures and no soft tissue abscess. The patient was seen in consultation by Infectious Disease (Dr. Shea) and his impression was the patient had cellulitis and he agreed with treatment with cephazolin 1 g IV q.8 hours that was later o n transitioned to cephalexin to complete 1 more week of treatment. The patient had improvement of the erythema and before discharge, he was switched to a boot by Dr. Rodriguez. He is medically stable for discharge at this time to follow up with Dr. Callahan on 09/01/18, Dr. Lai bloom on 09/02/[address] Shea on 09/10/18. Of note, the patient is nonweightbearing of the left lower extremity. He was seen by Physical Therap y and he states that he has plenty of help at home and he should be able to manage with a walker and a wheelchair. He is medically stable for discharge at this time. PHYSICAL EXAMINATION: Vital Signs: Temperature 98.2, heart rate is 70, respiratory rate is 18, oxyg en saturation 98% on room air, blood pressure is 124/46. General: The patient is a pleasant, elderl y gentleman, sitting up in a chair, in no acute distress. CVS: Normal S1, S2. Regular rate and rhy thm. Chest: Breath sounds bilaterally with no added sounds. Extremities: The patient has edema of the left foot with significant blisters on the dorsal aspect, but the erythema that was present on ad mission has significantly improved. Good pulses, good capillary refill. Sensation is intact. Neuro : He is alert and oriented x3, able to move all 4 extremities. DIET: Heart healthy, consistent carb diet. ACTIVITIES: As tolerated. Nonweightbearing to the left lower extremity. DISPOSITION: To home. STATUS IN THE HOSPITAL: Inpatient. Please keep in mind this is a summarized version of this patient's hospital stay. If you need more in formation, please feel free to call me at [phone] or please obtain full medical records. TIME SPENT: Approximately 45 minutes were spent to complete this discharge. [id number]/[facility] #: [id number]
== END 2018-08-29 12:25 | disposition home or self-care (01) | DRG 603 ==
LOC: ED 16:04 → MED 22:48
PROVIDERS: ADMIT Internal Medicine; ATTEND Internal Medicine
DX: L03.116 Cellulitis of left lower limb (principal); I47.2 Ventricular tachycardia; S92.302A Fracture of unspecified metatarsal bone(s), left foot, initial encounter for closed fracture; I11.9 Hypertensive heart disease without heart failure; S92.002A Unspecified fracture of left calcaneus, initial encounter for closed fracture; E11.51 Type 2 diabetes mellitus with diabetic peripheral angiopathy without gangrene; W30.0XXA Contact with combine harvester, initial encounter; Y92.73 Farm field as the place of occurrence of the external cause; I25.10 Atherosclerotic heart disease of native coronary artery without angina pectoris; E78.5 Hyperlipidemia, unspecified; E66.9 Obesity, unspecified; M19.90 Unspecified osteoarthritis, unspecified site; K21.9 Gastro-esophageal reflux disease without esophagitis; Z79.84 Long term (current) use of oral hypoglycemic drugs; Z79.82 Long term (current) use of aspirin; Z79.4 Long term (current) use of insulin; Z79.899 Other long term (current) drug therapy; Z88.0 Allergy status to penicillin; Z82.49 Family history of ischemic heart disease and other diseases of the circulatory system; Z80.9 Family history of malignant neoplasm, unspecified; Z87.891 Personal history of nicotine dependence; Z68.36 Body mass index [BMI] 36.0-36.9, adult; Z87.81 Personal history of (healed) traumatic fracture
CPT/HCPCS: 36415; 71045; 80048; 80053; 81003; 83036; 83605; 85025; 85610; 85730; 86140; 87040; 99284; A9270-GY; G8978-GP-CK; G8979-GP-CI; G8987-GO-CK; G8988-GO-CI; J0690; J1644; J2270; J2405; J3370

== ENCOUNTER 2018-12-20 08:44 | Emergency (ER) | payer MEDICARE ==
--- NOTE | 2018-12-20 09:41 | UC ---
Complaint Male HPI - HPI Summary HPI Summary: 78-year-old male comes in with a chief complaint of difficulty urinating for the last 2 days, abdominal discomfort for the last 1 week, chills for the last 2 -3 days, shortness of breath for 1 month. For about a month now the patient's been more short of breath with activity. he is presents also worse with laying down and better with standing up. Has not been coughing up any phlegm. No history of COPD or CHF. Abdomens been feeling bloated for about a week. He recently had a EGD and a colonoscopy for anemia. He's had a history of gastric ulcer. Last couple days he's had a hard time urinating standing up makes it easier to urinate when he sitting down. He did have chills a couple of days ago but no obvious source of infection. Has not seen any blood in the stools. NO Diarrhea. Patient's recently injured his left foot and he has chronic edema in the left leg which is not changed. He's never been treated for enlarged prostate. - History of Current Complaint Chief Complaint: UCRespiratory Stated Complaint: BLOATED,DIGESTION COMPLAINT Time Seen by Provider: 12/20/18 08:55 Pain Intensity: 2 - Allergies/Home Medications Allergies/Adverse Reactions: Allergies Allergy/AdvReac Type Severity Reaction Status Date / Time Penicillins Allergy Unknown Verified 12/20/18 09:03 Reaction Details PMH/Surg Hx/FS Hx/Imm Hx Previously Healthy: Yes Endocrine History: Diabetes, Dyslipidemia GI/ History: Gastroesophageal Reflux - Surgical History Surgical History: Yes Surgery Procedure, Year, and Place: left index finger - PARTIAL AMPUTATED. left ankle mark,. CSP. 1998 cholecystectomy, THEN 2005 - HAD COMMON BILE DUCT REPAIR AND STONES REMOVED. APPENDECTOMY - Family History Known Family History: Positive: Hypertension, Diabetes, Other - Noncontributory - Social History Alcohol Use: None Alcohol Amount: QUIT 1992 Substance Use Type: None Smoking Status (MU): Former Smoker Type: Pipe Amount Used/How Often: reports smoked pipe (full pouch tobacco) daily for 38 years When Did the Patient Quit Smoking/Using Tobacco: 1992 - Immunization History Most Recent Influenza Vaccination: fall 2017 Most Recent Pneumonia Vaccination: 2010 Review of Systems All Other Systems Reviewed And Are Negative: Yes Constitutional: Positive: Chills Skin: Positive: Negative Eyes: Positive: Negative ENT: Positive: Negative Respiratory: Positive: Shortness Of Breath Cardiovascular: Positive: Negative Gastrointestinal: Positive: Abdominal Pain, Other - SEE HPI Genitourinary: Positive: Other - DIFFICULTY URINATING. Negative: Dysuria Motor: Positive: Negative Neurovascular: Positive: Negative Musculoskeletal: Positive: Edema - SEE HPI Neurological: Positive: Negative Psychological: Positive: Negative Is Patient Immunocompromised?: No Physical Exam - Summary Physical Exam Summary: SLIGHTLY PALE Triage Information Reviewed: Yes Appearance: Well-Appearing, No Pain Distress, Well-Nourished Vital Signs: Initial Vital Signs Temp 98 F 12/20/18 08:58 Pulse 64 12/20/18 08:58 Resp 16 12/20/18 08:58 BP 183/67 12/20/18 08:58 Pulse Ox 97 12/20/18 08:58 Vital Signs Reviewed: Yes Eye Exam: Normal Eyes: Positive: Conjunctiva Clear ENT Exam: Normal ENT: Positive: Pharynx normal Neck exam: Normal Neck: Positive: Supple, Nontender Respiratory: Positive: Lungs clear, Normal breath sounds, No respiratory distress Cardiovascular: Positive: RRR Abdomen Description: Positive: Nontender, Distended. Negative: CVA Tenderness ( R), CVA Tenderness (L), Guarding Bowel Sounds: Positive: Present Musculoskeletal: Positive: Strength Intact, Edema @ - LLE,NON TENDER Neurological: Positive: Alert, Muscle Tone Normal Psychological Exam: Normal Psychological: Positive: Normal Response To Family, Age Appropriate Behavior Skin Exam: Normal Complaint Male Course/Dx - Course Course Of Treatment: Order Information: CHEST PA LAT 2 VWS. Accession Number: [id number]. CPT: 93746. INDICATION: Shortness of breath. COMPARISON: Chest x -ray dated August 26, 2018. TECHNIQUE: PA and lateral views of the chest were obtained. FINDINGS: There is moderate cardiomegaly similar in appearance the previous chest x-ray. There is density obscuring the right lung base and causing right costophrenic angle. blunting. Visualized bones are normal for the patient's age. There is no radiographic evidence of free air beneath the diaphragm. IMPRESSION: 1. DENSITY OBSCURING THE RIGHT LUNG BASE AND RIGHT HEMIDIAPHRAGM COULD BE DUE TO. CONSOLIDATION AND/OR PLEURAL EFFUSION. 2. THE MODERATE DEGREE OF CARDIOMEGALY IS SIMILAR IN APPEARANCE TO THE PREVIOUS CHEST. X-RAY. . < Electronically signed by Abdoulaye Cyr MD in [facility]> 12/20/18 1056. Order Information: CT ABD/PEL W/O. Accession Number: [id number]. CPT: 87947. CLINICAL HISTORY: Abdominal bloating x2 days, difficulty urinating x2 days and some. constipation. Relevant surgical history includes cholecystectomy, "bile duct repair" and. appendectomy. COMPARISON: CTA abdomen and pelvis with runoff dated September 13, 2016. TECHNIQUE: Noncontrast CT examination of the abdomen and pelvis from the lung bases. through the initial tuberosities. FINDINGS: Unless otherwise specified comparisons below reference the August CTA. VISUALIZED LUNG BASES: There is coarse calcification of the coronary arteries and aortic ring. There are small. bibasilar pleural effusions , slightly larger on the right than the left. ABDOMEN AND PELVIS: Evaluation of the solid organs and vasculature is limited without intravenous contrast. Similar to the prior CT examination, there is gas in the left lobe biliary system. The spleen, pancreas and adrenal glands are grossly normal in appearance. The gallbladder. is surgically absent. The kidneys are normal in appearance without focal mass, calcification or signs of. hydronephrosis. The urinary bladder measures 9.6 x 15.5 cm in the sagittal plane and approximately 9.6 cm. transverse yielding an approximate volume of just under 1.2 L. Evaluation of the gastrointestinal tract is limited in the absence of oral contrast. The. small and large bowel are not distended.Consistent with the patient's reported surgical. history, the appendix is not visualized. There is no gross retroperitoneal or mesenteric lymphadenopathy. The pelvic viscera is normal in appearance. There is coarse atherosclerotic calcification at the origin of the superior mesenteric. artery causing at least 50% degree stenosis (sagittal image 113). There is coarse. calcification in the bilateral renal arteries causing high-grade stenosis on the right and. an indeterminate amount of stenosis in the left. Degenerative changes of the lower thoracic and lumbar spine includes loss of. intervertebral disc height and anterior bridging osteophyte formation. There are intact. transpedicular screw fixation and a prosthetic intervertebral disc spacer at L4/L5. IMPRESSION: 1. Cardiomegaly, groundglass opacification and small pleural effusions are most consistent. with congestive heart failure and/or fluid overload. 2. There are no focal inflammatory changes or signs of obstruction of the gastrointestinal. tract. 3. There are no urinary calculi or signs of hydronephrosis. 4. The urinary bladder measures an approximate volume of just under 1.2 L. Please. correspond to clinical signs of urinary outlet obstruction and/or neurogenic bladder. 5. There are additional chronic, degenerative and postsurgical changes described in the. body the report. . <Electronically signed by Abdoulaye Cyr MD in [facility]> 12/20/18 9097. I discussed the CT x-ray urine and influenza results with the patient and family. Upon initial presentation we discussed going to the emergency department for further evaluation and care. Patient preferred to not go the emergency department AT this time. Here in clinic we did a chest x-ray and a CT the abdomen and pelvis which show pleural effusion fluid overload and a distended bladder with 1.2 L volume. No hydronephrosis. There is lab work pending. If there is any abnormal lab work to include kidney abnormalities the plan is to call the patient and he can go to the emergency department at that time if appropriate. Groves catheter was placed by nursing. 1100 cc of urine returned. Patient sent home with a leg bag. He'll be follow-up with urology for the Groves catheter and the urinary obstruction. Starting him on Flomax 0.4 mg a day. No obvious signs of infection today. Without knowing his kidney function I do not want to start him on a diuretic. I expect that getting rid of the extra urine will help with the fluid overload issue. I did let the patient know that if he has abnormalities in his lab work or if he is getting more shortness of breath his condition is worsening. He feels ill he will need to go the emergency department for further evaluation and care. - Differential Dx/Diagnosis Provider Diagnosis: Urinary retention with incomplete bladder emptying, Pleural effusion, Fluid overload, Hypoglycemia Discharge - Sign-Out/Discharge Documenting (check all that apply): Patient Departure All imaging exams completed and their final reports reviewed: Yes - Discharge Plan Condition: Stable Disposition: HOME Prescriptions: Tamsulosin CAP* [Flomax CAP*] 0.4 mg PO DAILY #30 cap Patient Education Materials: Urinary Retention in Men (ED), Groves Catheter Placement and Care (ED), Pleural Effusion (ED), Shortness of Breath (ED) Referrals: Momo Ro MD [Primary Care Provider] - Phillip Casey MD [Medical Doctor] - Handy Arteaga MD [Medical Doctor] - Additional Instructions: FOLLOW UP WITH UROLOGY. CALL TOMORROW TO ARRANGE FOLLOW UP. FOLLOW UP WITH YOUR PRIMARY CARE DOCTOR. LAB WORK RESULTS ARE PENDING. IF THERE ARE ABNORMAL LAB RESULTS, YOU MAY NEED FURTHER EVALUATION AND TREATMENT IN THE HOSPITAL. GO TO THE EMERGENCY DEPARTMENT ANY WORSENING OF YOUR CONDITION; PAIN, SHORTNESS OF BREATH, YOU FEEL ILL OR QUESTIONS OR CONCERNS. - Billing Disposition and Condition Condition: STABLE Disposition: Home
[2018-12-20 09:52] LABS: Influenza A Molecular NEGATIVE (Negative); Influenza B Molecular NEGATIVE (Negative)
[2018-12-20 11:25] VITALS: BP 128/49
[2018-12-20 14:34] LABS: ABS Basophils 0.1 10^3/ul (0-0.2); ABS Eosinophils 0.1 10^3/ul (0-0.6); ABS Monocytes 0.6 10^3/ul (0-0.8); ABS Neutrophils 5.1 10^3/ul (1.5-7.7); ABS Nucleated RBC 0 10^3/ul; Eosinophil % 1.7 %; Hematocrit 37 % (42-52); Hemoglobin 12.1 g/dl (14.0-18.0); Mean Corpuscular HGB Conc 33 g/dl (31-36); Mean Corpuscular Hemoglobin 29 pg (27-31); Mean Corpuscular Volume 87 fL (80-94); Mean Platelet Volume 9.1 fL (7.4-10.4); Nucleated Red Blood Cells % 0; Platelet Count 233 10^3/ul (150-450); Red Blood Count 4.24 10^6/ul (4.00-5.40); Red Cell Distribution Width 15 % (10.5-15)
[2018-12-20 14:43] LABS: Calcium 9.7 mg/dL (8.6-10.3); Potassium 4.7 mmol/L (3.5-5.0); Total Bilirubin 0.5 mg/dL (0.2-1.0)
[2018-12-20 14:49] LABS: Albumin/Globulin Ratio 1.5 (1-3); BUN/Creatinine Ratio 29.2 (8-20); EGFR African American 81.5 (>60); EGFR Non-African American 67.4 (>60); Globulin 2.6 g/dL (2-4); Total Protein 6.6 g/dL (6.4-8.9)
== END 2018-12-20 13:07 | disposition home or self-care (01) ==
LOC: UCEAST 08:44
DX: R33.9 Retention of urine, unspecified (principal); J90 Pleural effusion, not elsewhere classified; E87.70 Fluid overload, unspecified; E11.649 Type 2 diabetes mellitus with hypoglycemia without coma; Z87.891 Personal history of nicotine dependence; Z88.0 Allergy status to penicillin
CPT/HCPCS: 36415; 71046; 74176; 80053; 81003; 83690; 83880; 85025; 99212; G0463

== ENCOUNTER 2019-01-11 13:04 | Inpatient (IN) | payer MEDICARE ==
[2019-01-11 15:02] LABS: ABS Basophils 0.1 10^3/ul (0-0.2); ABS Eosinophils 0.1 10^3/ul (0-0.6); ABS Monocytes 0.7 10^3/ul (0-0.8); ABS Neutrophils 4.7 10^3/ul (1.5-7.7); ABS Nucleated RBC 0 10^3/ul; Eosinophil % 1.6 %; Hematocrit 37 % (42-52); Hemoglobin 12.1 g/dl (14.0-18.0); Lymphocyte % 14.7 %; Mean Corpuscular HGB Conc 33 g/dl (31-36); Mean Corpuscular Hemoglobin 29 pg (27-31); Mean Corpuscular Volume 87 fL (80-94); Mean Platelet Volume 9.2 fL (7.4-10.4); Nucleated Red Blood Cells % 0; Platelet Count 183 10^3/ul (150-450); Red Blood Count 4.24 10^6/ul (4.00-5.40); Red Cell Distribution Width 15 % (10.5-15); White Blood Count 6.5 10^3/ul (3.5-10.8)
[2019-01-11 15:09] LABS: INR 1.14 (0.77-1.02)
[2019-01-11 15:24] LABS: Albumin 4.1 g/dL (3.2-5.2); Albumin/Globulin Ratio 1.4 (1-3); BUN/Creatinine Ratio 24.7 (8-20); C Reactive Protein 10.34 mg/L (<8.01); Calcium 9.3 mg/dL (8.6-10.3); EGFR African American 90.3 (>60); EGFR Non-African American 74.7 (>60); Potassium 4.8 mmol/L (3.5-5.0); Total Bilirubin 0.4 mg/dL (0.2-1.0); Total Protein 7.1 g/dL (6.4-8.9); Troponin I 0.03 ng/mL (<0.04)
[2019-01-11 15:46] LABS: Urine Appearance Clear; Urine Bacteria Absent (Absent); Urine Bilirubin Negative (Negative); Urine Blood Negative (Negative); Urine Color Yellow; Urine Glucose Negative (Negative); Urine Ketones Negative (Negative); Urine Nitrite Negative (Negative); Urine Protein Negative (Negative); Urine Red Blood Cell Trace(0-2/hpf) (Absent); Urine Specific Gravity 1.013 (1.010-1.030); Urine Urobilinogen Negative (Negative); Urine White Blood Cell Trace(0-5/hpf) (Absent)
[2019-01-11 16:00] LABS: Influenza A Molecular NEGATIVE (Negative); Influenza B Molecular NEGATIVE (Negative)
[2019-01-11] MEDS ORDERED: Furosemide IV* 10 MG/ML VIAL (40 MG) IV ONE (16:26)
--- NOTE | 2019-01-11 16:59 | ED ---
Shortness of Breath - HPI Summary HPI Summary: Patient complains of new onset exertional shortness of breath and new onset bilateral pedal edema progressing over the past month, worse this past weekend. Patient states able to perform ADLs, except when he goes down the put wood in the furnace and has to walk back up the stairs and is out of breath at the top of the stairs. Also claims exertional shortness of breath when walking long distances. Also admits to new onset shortness of breath when lying flat 1 week. Patient was sent to the ED by PCP Dr. Ro for further evaluation. Patient also complains of new onset shortness of breath when lying flat, has been sleeping in the recliner. Patient also has history of recent Groves catheter placement 3 weeks ago for urinary retention. Patient denies CP at any time, fever, cough, sore throat, N/V/D, abdominal pain, change in BM. Medical history is a flutter, CAD, PVD, DM, HTN, HDL. Daily aspirin, no anti-coag. - History of Current Complaint Chief Complaint: EDShortnessOfBreath Time Seen by Provider: 01/11/19 14:38 Hx Obtained From: Patient, Family/Manager Forms Onset/Duration: Gradual Onset, Lasting Weeks Timing: Intermittent Episodes Lasting: Current Severity: Moderate Dyspnea At: Exertion Alleviating Factors: Other Associated Signs & Symptoms: Negative - Allergy/Home Medications Allergies/Adverse Reactions: Allergies Allergy/AdvReac Type Severity Reaction Status Date / Time Penicillins Allergy Unknown Verified 01/11/19 13:21 Reaction Details PMH/Surg Hx/FS Hx/Imm Hx Endocrine/Hematology History: Reports: Hx Diabetes, Hx Anemia - daily ASA Cardiovascular History: Reports: Hx Coronary Artery Disease, Hx Hypertension, Hx Peripheral Vascular Disease, Other Cardiovascular Problems/Disorders - aortic stenosis, hx a-flutter, hyperlipidemia, hx v-tach Denies: Hx Pacemaker/ICD Respiratory History: Denies: Hx Asthma GI History: Reports: Hx Gastroesophageal Reflux Disease, Hx Ulcer - hx of pyloric History: Denies: Hx Renal Disease - DOES HAVE A CATHETER Musculoskeletal History: Reports: Hx Arthritis, Other Musculoskeletal History - spondylosis, lumbar region Sensory History: Reports: Hx Cataracts - has beginnings, no surgery yet, Hx Contacts or Glasses Denies: Hx Deafness, Hx Hearing Aid Opthamlomology History: Reports: Hx Cataracts - has beginnings, no surgery yet, Hx Contacts or Glasses Neurological History: Reports: Other Neuro Impairments/Disorders - reports pain radiating down right leg from back issue Psychiatric History: Denies: Hx Panic Disorder - Surgical History Surgery Procedure, Year, and Place: left index finger - PARTIAL AMPUTATED. left ankle mark,. CSP. 1998 cholecystectomy, THEN 2005 - HAD COMMON BILE DUCT REPAIR AND STONES REMOVED. APPENDECTOMY Hx Anesthesia Reactions: No Infectious Disease History: No Infectious Disease History: Denies: Traveled Outside the [place] in Last 30 Days - Family History Known Family History: Positive: Hypertension, Diabetes, Other - Noncontributory - Social History Alcohol Use: None Alcohol Amount: QUIT 1992 Substance Use Type: Reports: None Hx Tobacco Use: No Smoking Status (MU): Former Smoker Type: Pipe Amount Used/How Often: reports smoked pipe (full pouch tobacco) daily for 38 years Review of Systems Constitutional: Negative Eyes: Negative ENT: Negative Cardiovascular: Negative Positive: Shortness Of Breath Gastrointestinal: Negative Genitourinary: Negative Musculoskeletal: Negative Skin: Negative Neurological: Negative Psychological: Normal All Other Systems Reviewed And Are Negative: Yes Physical Exam - Summary Physical Exam Summary: Bilateral nonpitting pedal edema. Stiff ankle on left lower extremity with history of surgery. Abdomen soft nontender. Mild rales to auscultation. Possible cardiac irregular rhythm. Physical exam otherwise unremarkable. Triage Information Reviewed: Yes Vital Signs On Initial Exam: Initial Vitals Temp Pulse Resp BP Pulse Ox 97.5 F 58 16 155/72 95 01/11/19 13:14 01/11/19 13:14 01/11/19 13:14 01/11/19 13:14 01/11/19 13:14 Vital Signs Reviewed: Yes Appearance: Positive: Well-Appearing Skin: Positive: Warm Head/Face: Positive: Normal Head/Face Inspection Eyes: Positive: Normal ENT: Positive: Normal ENT inspection Neck: Positive: Supple Respiratory/Lung Sounds: Positive: Rales Cardiovascular: Positive: Bradycardia, IRR Abdomen Description: Positive: Nontender Musculoskeletal: Positive: Normal Neurological: Positive: Normal Psychiatric: Positive: Normal AVPU Assessment: Alert - Tawanna Coma Scale Best Eye Response: 4 - Spontaneous Best Motor Response: 6 - Obeys Commands Best Verbal Response: 5 - Oriented Coma Scale Total: 15 Diagnostics - Vital Signs Vital Signs Temp Pulse Resp BP Pulse Ox 01/11/19 16:00 53 31 96 01/11/19 15:42 55 24 139/70 01/11/19 15:12 59 26 164/84 97 01/11/19 15:00 62 21 01/11/19 14:42 61 24 170/83 97 01/11/19 14:41 64 22 97 01/11/19 13:14 97.5 F 58 16 155/72 95 - Laboratory Lab Results: Lab Results 01/11/19 01/11/19 01/11/19 Range/Units 14:51 14:51 14:51 WBC 6.5 (3.5-10.8) 10^3/ul RBC 4.24 (4.00-5.40) 10^6/ul Hgb 12.1 L (14.0-18.0) g/dl Hct 37 L (42-52) % MCV 87 (80-94) fL MCH 29 (27-31) pg MCHC 33 (31-36) g/dl RDW 15 (10.5-15) % Plt Count 183 (150-450) 10^3/ul MPV 9.2 (7.4-10.4) fL Neut % (Auto) 72.2 % Lymph % (Auto) 14.7 % Kerr % (Auto) 10.7 % Eos % (Auto) 1.6 % Baso % (Auto) 0.8 % Absolute Neuts (auto) 4.7 (1.5-7.7) 10^3/ul Absolute Lymphs (auto) 1.0 (1.0-4.8) 10^3/ul Absolute Monos (auto) 0.7 (0-0.8) 10^3/ul Absolute Eos (auto) 0.1 (0-0.6) 10^3/ul Absolute Basos (auto) 0.1 (0-0.2) 10^3/ul Absolute Nucleated RBC 0 10^3/ul Nucleated RBC % 0 INR (Anticoag Therapy) (0.77-1.02) Sodium 138 (135-145) mmol/L Potassium 4.8 (3.5-5.0) mmol/L Chloride 105 (101-111) mmol/L Carbon Dioxide 26 (22-32) mmol/L Anion Gap 7 (2-11) mmol/L BUN 24 (6-24) mg/dL Creatinine 0.97 (0.67-1.17) mg/dL Est GFR ( Amer) 90.3 (>60) Est GFR (Non-Af Amer) 74.7 (>60) BUN/Creatinine Ratio 24.7 H (8-20) Glucose 146 H (70-100) mg/dL Lactic Acid 1.5 (0.5-2.0) mmol/L Calcium 9.3 (8.6-10.3) mg/dL Total Bilirubin 0.40 (0.2-1.0) mg/dL AST 28 (13-39) U/L ALT 18 (7-52) U/L Alkaline Phosphatase 69 (34-104) U/L Troponin I 0.03 (<0.04) ng/mL C-Reactive Protein 10.34 H (<8.01) mg/L B-Natriuretic Peptide (<=100) pg/mL Total Protein 7.1 (6.4-8.9) g/dL Albumin 4.1 (3.2-5.2) g/dL Globulin 3.0 (2-4) g/dL Albumin/Globulin Ratio 1.4 (1-3) Urine Color Urine Appearance Urine pH (5-9) Ur Specific Lima (1.010-1.030) Urine Protein (Negative) Urine Ketones (Negative) Urine Blood (Negative) Urine Nitrate (Negative) Urine Bilirubin (Negative) Urine Urobilinogen (Negative) Ur Leukocyte Esterase (Negative) Urine WBC (Auto) (Absent) Urine RBC (Auto) (Absent) Urine Bacteria (Absent) Urine Glucose (Negative) Urine Ascorbic Acid (Negative) Influenza A (Rapid) (Negative) Influenza B (Rapid) (Negative) 01/11/19 01/11/19 01/11/19 Range/Units 14:51 14:51 15:15 WBC (3.5-10.8) 10^3/ul RBC (4.00-5.40) 10^6/ul Hgb (14.0-18.0) g/dl Hct (42-52) % MCV (80-94) fL MCH (27-31) pg MCHC (31-36) g/dl RDW (10.5-15) % Plt Count (150-450) 10^3/ul MPV (7.4-10.4) fL Neut % (Auto) % Lymph % (Auto) % Kerr % (Auto) % Eos % (Auto) % Baso % (Auto) % Absolute Neuts (auto) (1.5-7.7) 10^3/ul Absolute Lymphs (auto) (1.0-4.8) 10^3/ul Absolute Monos (auto) (0-0.8) 10^3/ul Absolute Eos (auto) (0-0.6) 10^3/ul Absolute Basos (auto) (0-0.2) 10^3/ul Absolute Nucleated RBC 10^3/ul Nucleated RBC % INR (Anticoag Therapy) 1.14 H (0.77-1.02) Sodium (135-145) mmol/L Potassium (3.5-5.0) mmol/L Chloride (101-111) mmol/L Carbon Dioxide (22-32) mmol/L Anion Gap (2-11) mmol/L BUN (6-24) mg/dL Creatinine (0.67-1.17) mg/dL Est GFR ( Amer) (>60) Est GFR (Non-Af Amer) (>60) BUN/Creatinine Ratio (8-20) Glucose (70-100) mg/dL Lactic Acid (0.5-2.0) mmol/L Calcium (8.6-10.3) mg/dL Total Bilirubin (0.2-1.0) mg/dL AST (13-39) U/L ALT (7-52) U/L Alkaline Phosphatase (34-104) U/L Troponin I (<0.04) ng/mL C-Reactive Protein (<8.01) mg/L B-Natriuretic Peptide 220 H (<=100) pg/mL Total Protein (6.4-8.9) g/dL Albumin (3.2-5.2) g/dL Globulin (2-4) g/dL Albumin/Globulin Ratio (1-3) Urine Color Yellow Urine Appearance Clear Urine pH 7.0 (5-9) Ur Specific Lima 1.013 (1.010-1.030) Urine Protein Negative (Negative) Urine Ketones Negative (Negative) Urine Blood Negative (Negative) Urine Nitrate Negative (Negative) Urine Bilirubin Negative (Negative) Urine Urobilinogen Negative (Negative) Ur Leukocyte Esterase 1+ A (Negative) Urine WBC (Auto) Trace(0-5/hpf) (Absent) Urine RBC (Auto) Trace(0-2/hpf) (Absent) Urine Bacteria Absent (Absent) Urine Glucose Negative (Negative) Urine Ascorbic Acid * A (Negative) Influenza A (Rapid) (Negative) Influenza B (Rapid) (Negative) 01/11/19 Range/Units 15:48 WBC (3.5-10.8) 10^3/ul RBC (4.00-5.40) 10^6/ul Hgb (14.0-18.0) g/dl Hct (42-52) % MCV (80-94) fL MCH (27-31) pg MCHC (31-36) g/dl RDW (10.5-15) % Plt Count (150-450) 10^3/ul MPV (7.4-10.4) fL Neut % (Auto) % Lymph % (Auto) % Kerr % (Auto) % Eos % (Auto) % Baso % (Auto) % Absolute Neuts (auto) (1.5-7.7) 10^3/ul Absolute Lymphs (auto) (1.0-4.8) 10^3/ul Absolute Monos (auto) (0-0.8) 10^3/ul Absolute Eos (auto) (0-0.6) 10^3/ul Absolute Basos (auto) (0-0.2) 10^3/ul Absolute Nucleated RBC 10^3/ul Nucleated RBC % INR (Anticoag Therapy) (0.77-1.02) Sodium (135-145) mmol/L Potassium (3.5-5.0) mmol/L Chloride (101-111) mmol/L Carbon Dioxide (22-32) mmol/L Anion Gap (2-11) mmol/L BUN (6-24) mg/dL Creatinine (0.67-1.17) mg/dL Est GFR ( Amer) (>60) Est GFR (Non-Af Amer) (>60) BUN/Creatinine Ratio (8-20) Glucose (70-100) mg/dL Lactic Acid (0.5-2.0) mmol/L Calcium (8.6-10.3) mg/dL Total Bilirubin (0.2-1.0) mg/dL AST (13-39) U/L ALT (7-52) U/L Alkaline Phosphatase (34-104) U/L Troponin I (<0.04) ng/mL C-Reactive Protein (<8.01) mg/L B-Natriuretic Peptide (<=100) pg/mL Total Protein (6.4-8.9) g/dL Albumin (3.2-5.2) g/dL Globulin (2-4) g/dL Albumin/Globulin Ratio (1-3) Urine Color Urine Appearance Urine pH (5-9) Ur Specific Lima (1.010-1.030) Urine Protein (Negative) Urine Ketones (Negative) Urine Blood (Negative) Urine Nitrate (Negative) Urine Bilirubin (Negative) Urine Urobilinogen (Negative) Ur Leukocyte Esterase (Negative) Urine WBC (Auto) (Absent) Urine RBC (Auto) (Absent) Urine Bacteria (Absent) Urine Glucose (Negative) Urine Ascorbic Acid (Negative) Influenza A (Rapid) Negative (Negative) Influenza B (Rapid) Negative (Negative) Result Diagrams: 01/11/19 14:51 01/11/19 14:51 Lab Statement: Any lab studies that have been ordered have been reviewed, and results considered in the medical decision making process. Course/Dx - Course Course Of Treatment: Patient complains of new onset exertional shortness of breath and new onset bilateral pedal edema progressing over the past month, worse this past weekend. Patient states able to perform ADLs, except when he goes down the put wood in the furnace and has to walk back up the stairs and is out of breath at the top of the stairs. Also claims exertional shortness of breath when walking long distances. Also admits to new onset shortness of breath when lying flat 1 week. Patient was sent to the ED by PCP Dr. Ro for further evaluation. Patient also complains of new onset shortness of breath when lying flat, has been sleeping in the recliner. Patient also has history of recent Groves catheter placement 3 weeks ago for urinary retention. Patient denies CP at any time, fever, cough, sore throat, N/V/D, abdominal pain , change in BM. Medical history is a flutter, CAD, PVD, DM, HTN, HDL. Daily aspirin, no anti-coag. Physical exam:Bilateral nonpitting pedal edema. Stiff ankle on left lower extremity with history of surgery. Abdomen soft nontender. Mild rales to auscultation. Possible cardiac irregular rhythm. Physical exam otherwise unremarkable. Irregular bradycardic rhythm. O2 sats within normal limits at rest. Afebrile. Blood pressure within normal limits. Initial EKG A. fib with narrow complex. Second EKG A. fib with wide complex. BMP 220. Pulmonary edema on chest x-ray. Labs otherwise unremarkable. Flu negative. 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 Discussed patient with Dr. Bautista clinical education assistant for cardiac group, recommended Lasix IV and agreed with this provider's plan to admit for observation and diuresis. Unclear if CHF related to arrhythmia or vice versa. No current anti coagulation. - Diagnoses Provider Diagnoses: A-fib, CHF (congestive heart failure) Discharge - Sign-Out/Discharge Documenting (check all that apply): Patient Departure Patient Received Moderate/Deep Sedation with Procedure: No - Discharge Plan Condition: Good Disposition: ADMITTED TO [facility] Referrals: Momo Ro MD [Primary Care Provider] - - Billing Disposition and Condition Condition: GOOD Disposition: Admitted to [facility]
[2019-01-11] MEDS ORDERED: Acetaminophen TAB* 325 MG PO PRN (18:37)
[2019-01-11] MEDS: Heparin VIAL(*) 5000 UNITS/ML VIAL (FIVE THOUSAND) SUBCUT SCH (22:51)
[2019-01-11] MEDS: Pantoprazole TAB * 40 MG TAB PO SCH (22:51)
[2019-01-11] MEDS: Insulin GLARGINE(*) 1 UNITS UNIT SUBCUT SCH (22:51)
[2019-01-12] MEDS: Heparin VIAL(*) 5000 UNITS/ML VIAL (FIVE THOUSAND) SUBCUT SCH ×2 (05:59→14:01)
[2019-01-12] MEDS ORDERED: Dextrose 50% Syringe 50 ML* 25 GM/50 ML SYRINGE IV PUSH PRN (07:00)
[2019-01-12 07:08] LABS: ABS Basophils 0 10^3/ul (0-0.2); ABS Eosinophils 0.1 10^3/ul (0-0.6); ABS Lymphocytes 0.8 10^3/ul (1.0-4.8); ABS Monocytes 0.6 10^3/ul (0-0.8); ABS Neutrophils 3.8 10^3/ul (1.5-7.7); ABS Nucleated RBC 0 10^3/ul; Eosinophil % 2.2 %; Hematocrit 38 % (42-52); Hemoglobin 12.4 g/dl (14.0-18.0); Lymphocyte % 14.6 %; Mean Corpuscular HGB Conc 33 g/dl (31-36); Mean Corpuscular Hemoglobin 28 pg (27-31); Mean Corpuscular Volume 87 fL (80-94); Mean Platelet Volume 9.2 fL (7.4-10.4); Nucleated Red Blood Cells % 0; Platelet Count 182 10^3/ul (150-450); Red Blood Count 4.37 10^6/ul (4.00-5.40); Red Cell Distribution Width 15 % (10.5-15); White Blood Count 5.4 10^3/ul (3.5-10.8)
--- NOTE | 2019-01-12 07:14 | HP ---
CC: Dr. Ro; Dr. Mclaughlin * HISTORY AND PHYSICAL: DATE OF ADMISSION: 01/11/19 PROVIDER: Lori Chavarria NP PRIMARY CARE PROVIDER: Dr. Ro. ATTENDING PHYSICIAN WHILE IN THE HOSPITAL: Dr. Jody Hebert * (dictated by Lori Chavarria NP) CHIEF COMPLAINT: Shortness of breath. HISTORY OF PRESENT ILLNESS: Mr. Freeman is a 78-year-old male with a past medical history significant for hypertension, hyperlipidemia, insulin-dependent diabetes, coronary artery disease, who presented to the emergency room with a complaint of shortness of breath. The patient reports that he has had increased shortness of breath x2 to 3 weeks, worse over the past week. The patient also reports that he has had 2 to 3 weeks of bilateral lower extremity leg swelling. The patient also reports that he has had an approximate 20-pound weight gain. The patient states that since the swelling and increased shortness of breath started, he has been unable to sleep in his bed or lie flat in the bed due to increased dyspnea with lying flat. The patient reports that for the past 2 to 3 weeks, he has been sleeping in the recliner and to elevate his head to improve his breathing. He states approximately 3 weeks ago, he did have a Groves catheter placed due to urinary retention and has been followed with Dr. Arteaga at this time. Due to the increased shortness of breath and generalized weakness, he presented to the emergency room for further evaluation. The patient denies any fever or unintended weight loss. He denies any chest pain throughout all of these episodes. Does report bilateral lower extremity edema. He does report a cough that is nonproductive. He denies any hemoptysis. He does report shortness of breath. He denies any nausea, vomiting , or diarrhea. He does report some constipation. Denies any abdominal pain. Denies any gross hematuria, dysuria, focal weakness, or sensory loss. The patient does have Groves catheter in place x3 weeks. Denies any visual complaints, dysphagia, arthralgias, myalgias, rashes, lesions, or open sores. He does report some mild increase in depression due to having a Groves catheter and has increased shortness of breath. While in the emergency room, the patient had routine lab work drawn, which did show an elevated C-reactive protein of 10.34 and elevated BNP of 220. He had a chest x- ray, which showed cardiomegaly with pulmonary interstitial edema. He did have an electrocardiogram, which showed atrial fibrillation at a rate of 69 , which was new for the patient. Due to the patient's increased shortness of breath, concern for congestive heart failure and new atrial fibrillation, we were asked to see and evaluate the patient for admission. PAST MEDICAL HISTORY: Significant for: 1. Hypertension. 2. Hyperlipidemia. 3. Coronary artery disease. 4. Insulin-dependent type 2 diabetes. 5. Ventricular tachycardia. 6. History of osteoarthritis. 7. GERD. PAST SURGICAL HISTORY: 1. Neck surgery. 2. Left ankle surgery with hardware. 3. Appendectomy. 4. Cholecystectomy. 5. Lumbar spine diskectomy. 6. Balloon angioplasty to the left leg. MEDICATIONS: Current home medications include: 1. Aspirin 81 mg p.o. daily. 2. Lipitor 80 mg p.o. daily. 3. Fenofibrate 145 mg p.o. daily. 4. Insulin Levemir 10 units subcu p.m. and 30 units in the a.m. 5. Glucophage 500 mg p.o. b.i.d. 6. Metoprolol succinate 50 mg p.o. q.a.m. 7. Multivitamin with iron 1 tablet p.o. daily. 8. Starlix 60 mg p.o. t.i.d. 9. Protonix 40 mg p.o. b.i.d. 10. Flomax 0.4 mg p.o. daily. 11. Dutasteride 0.5 mg 1 tablet p.o. daily. ALLERGIES: To PENICILLIN. FAMILY HISTORY: Brother with a history of a pacemaker and open heart, [place]. Brother with a history of diabetes. Sister with a history of female cancer, unknown type. SOCIAL HISTORY: The patient reports that he was a former pipe smoker. He has quit in 1992. Prior to that, he smoked pipe for approximately 35 years. He also reports he quit drinking alcohol in 1992. Denies any illicit drug use. He is a oqeundo. He lives alone. Surrogate decision maker is his niece, Paola. He is a full code. REVIEW OF SYSTEMS: Review of 14 systems is completed. All pertinent positives were addressed in the HPI. All others were negative. PHYSICAL EXAMINATION GENERAL: At this time, Mr. Freeman is a pleasant 78-year-old male who is in no acute distress, resting on the stretcher in the emergency room. VITAL SIGNS: Blood pressure 139/64, heart rate 64, respirations 20, O2 saturation 95%, temperature was 97.2. HEENT: Head is atraumatic, normocephalic. Eyes: EOMs are intact. Sclerae anicteric and not pale. Oral mucosa appeared to be moist. NECK: Supple. LUNGS: Diminished bilaterally with crackles in the bases. HEART: S1 and S2. Irregular rate and rhythm. ABDOMEN: Soft and nontender. Bowel sounds are present x4. EXTREMITIES: He does have +3 pitting edema to bilateral lower extremities. He does not have any open wounds. Pedal pulses are +2 bilaterally. There is no clubbing or cyanosis. NEUROLOGIC: The patient is awake, alert, and oriented x3. Speech is clear. Though process is intact. There are no gross focal deficits noted. SKIN: Intact. DIAGNOSTIC STUDIES/LAB DATA: WBCs are 6.5, RBCs 4.24, hemoglobin of 12.1, hematocrit was 37, platelet count was 183. INR was 1.14. Sodium 138, potassium 4.8, chloride 105, carbon dioxide was 26, anion gap was 7, BUN 24, creatinine 0.97, glucose is 146, lactic acid 1.5, calcium of 9.3. Total bilirubin was 0.40, AST is 28, ALT is 18, alkaline phosphatase is 69. C- reactive protein was 10.34. Troponin was 0.03, repeat was 0.04. BNP was 220. Urine was within normal limits except for positive urine leukocyte esterase was 1+. Influenza A and B were both negative. He did have a chest x-ray. Radiologist's impression: Cardiomegaly or pulmonary interstitial edema. He had an abdominal x-ray, which showed nonspecific gas pattern. No significant retained stool. He did have an electrocardiogram, which showed atrial fibrillation at a rate of 69. He does have a wide QRS complex. EKGs were reviewed with Dr. Bautista from Cardiology, which does not show any acute coronary process at this time. ASSESSMENT AND PLAN: Mr. Freeman is a 78-year-old male with a past medical history significant for hypertension, hyperlipidemia, coronary artery disease, type 2 diabetes, and ventricular tachycardia, who presented to the emergency room with complaints of shortness of breath and bilateral lower leg swelling. He will be admitted under observation for: 1. Shortness of breath. I suspect this shortness of breath is related to acute diastolic congestive heart failure. The patient did receive Lasix 40 mg in the emergency room. I will continue Lasix 40 mg IV. He will have a repeat BMP in the a.m. We will place him on strict I's and O's. I will place him on a heart-healthy, no caffeine diet. I will repeat an echocardiogram. He will have daily weights. The patient does have bilateral lower extremity edema about 3+. He does report an approximate 20-pound weight gain in the last couple of months and has been unable to lie flat in his bed and has been sleeping on a recliner due to his increased shortness of breath. 2. New atrial fibrillation. The patient does have new atrial fibrillation. He did have a recent upper endoscopy with Dr. Lechuga, 12/03/18, which showed gastritis and ulceration. Due to the concern of risk of bleeding, I am going to consult GI prior to initiation of anticoagulation therapy. I did discuss this with Dr. Bautista, who has recommended anticoagulation therapy and decreasing his beta lori by half. His beta lori was decreased from 50 mg p.o. daily to 25 mg p.o. daily. I have discussed the risks and benefits of anticoagulation and the patient wishes to be placed on Eliquis for anticoagulation therapy. This will be started as soon as recommendations from GI are completed. I spoke to Dr. Valdovinos from GI. He will see the patient in the a.m. The patient is currently rate controlled with the rate in the 50s and 60s. His CHADS2-VASc score is 6 giving him a 9.7% risk per year greater than 90 ,000 patients and 13.6 risk of stroke or transient ischemic attack, stomach embolism. His HAS-BLED score is 3 giving him 5.8% and 3.72 bleeds per 100 patient-years in study and the patient would be placed at high risk of major bleeding. Due to his risk of major bleeding, again we are going to consult GI due to the patient's recent upper endoscopy showing gastritis and ulceration. 3. Hypertension. We will continue metoprolol as previously prescribed. 4. Hyperlipidemia. I will continue on atorvastatin 80 mg p.o. daily. 6. Diabetes. The patient will be placed on Lantus 6 units in the p.m. and 20 units in the a.m. Fingersticks a.c. and h.s. I will hold his metformin at this time and place him on lispro sliding scale. 7. Urinary retention. The patient has Groves placed 3 weeks ago. We will continue on his tamsulosin and dutasteride as previously prescribed. 8. Gastroesophageal reflux disease. She will continue on Protonix 40 mg p.o. b.i.d. 9. FEN. The patient could be on a heart-healthy, caffeine-okay diet. 10. Code status is a full code. 11. DVT prophylaxis. I will place him on heparin subcu q.8 hours. This will be discontinued once Eliquis is started. TIME SPENT: Time spent on this admission was approximately 60 minutes, greater than half that time was spent [id number] with the patient obtaining my history and physical, performing my physical exam and reviewing my plan of care. I have discussed this with my attending, Dr. Jody Hebert; she is in agreement with my plan. LORI CHAVARRIA, ZACK [id number]/[facility] #: [id number] JOVANI
[2019-01-12 07:42] LABS: Troponin I 0.03 ng/mL (<0.04)
[2019-01-12 07:46] LABS: BUN/Creatinine Ratio 20.8 (8-20); Calcium 9.7 mg/dL (8.6-10.3); EGFR African American 86.2 (>60); EGFR Non-African American 71.3 (>60); HDL Cholesterol 35.1 mg/dL; Potassium 4.1 mmol/L (3.5-5.0)
[2019-01-12] MEDS: Insulin LISPRO* 1 UNITS UNIT SUBCUT SCH ×3 (08:03→17:19)
[2019-01-12] MEDS: NATEGLINIDE 60 MG PO SCH ×3 (08:54→16:05)
[2019-01-12] MEDS: FENOFIBRATE 145 MG PO SCH (08:55)
[2019-01-12] MEDS: Aspirin EC TAB* 81 MG TAB.EC PO SCH (09:03)
[2019-01-12] MEDS: Pantoprazole TAB * 40 MG TAB PO SCH ×2 (09:03→21:17)
[2019-01-12] MEDS: Atorvastatin* 80 MG TAB PO SCH (09:03)
[2019-01-12] MEDS: Furosemide IV* 10 MG/ML VIAL (40 MG) IV SCH (09:03)
[2019-01-12] MEDS: Tamsulosin CAP* 0.4 MG PO SCH (09:03)
[2019-01-12] MEDS: Metoprolol Succinate XL TAB* 50 MG PO SCH (09:03)
[2019-01-12] MEDS: Insulin GLARGINE(*) 1 UNITS UNIT SUBCUT SCH ×2 (09:04→17:19)
--- NOTE | 2019-01-12 12:57 | ECHO ---
Patient: DARRYL MCCRARY [facility] Rec#: [id number] : 1940 Date: 01/12/2019 Age: 78y Height: 178 cm / 70.1 in Weight: 116 kg / 255.7 lbs Sex: M BSA: 2.32 Room#: 448 Admit Date#: 01/11/2019 Type: Inpatient Referring: Lori Chavarria Reading: Paulina Tejada MD Independent Contractor: Alice Ocampo RDCS CC: Momo Ro MD Transthoracic Echocardiogram Indication: Congestive heart failure BP: 136/50 HR: 58 Rhythm: A-Fib Findings History: HTN, HLD, DM, CAD. Technical Comments: The study quality is fair. Completed at 0855. Left Ventricle: The left ventricular chamber size is normal. Mild concentric left ventricular hypertrophy is observed. There is a prominent septal knuckle. There is mildly decreased left ventricular systolic function. The estimated ejection fraction is 45-50%. There is septal flattening of the interventricular septum consistent with right ventricular volume or pressure overload. The assessment of diastolic function is non-diagnostic. Left Atrium: The left atrium is severely dilated. Right Ventricle: Moderator Band present. The right ventricle is mildly dilated. The right ventricle wall thickness is moderately increased. The right ventricular global systolic function is mildly reduced. Right Atrium: The right atrium is moderate to severely dilated. Aortic Valve: The aortic valve structure is not well visualized. Moderate aortic leaflet calcification is visualized. Systolic excursion of the aortic valve cusps is reduced. There is a trace of aortic regurgitation. There is moderate to severe aortic stenosis. The mean gradient of the aortic valve is 18 mmHg. The peak instantaneous gradient of the aortic valve is 36 mmHg. The aortic valve area, by peak velocities, is calculated at 0.8 cm2. The aortic valve area, by VTI's, is calculated at 0.7 cm2. Mitral Valve: There is mitral annular calcification. The mitral valve leaflets are mildly thickened. There is trace to mild mitral regurgitation. There is mild mitral stenosis. The mean gradient across the mitral valve is 4 mmHg. The peak gradient across the mitral valve is 13 mmHg. The pressure half time of the mitral valve is 118 msec. The mitral valve area, by pressure half time, is calculated at 1.9 cm2. Tricuspid Valve: The tricuspid valve leaflets are mildly thickened. There is mild tricuspid regurgitation. The tricuspid regurgitant jet is eccentric. The right ventricular systolic pressure is estimated at 44 mmHg. There is evidence of mild to moderate pulmonary hypertension. There is no tricuspid stenosis. Pulmonic Valve: The pulmonic valve structure is not well visualized. There is a trace pulmonic regurgitation. There is no pulmonic stenosis. Pericardium: There is no significant pericardial effusion. A pericardial fat pad is visualized. Aorta: There is no dilatation of the ascending aorta. The aortic arch is not well visualized. There is mild dilatation of the aortic root. Pulmonary Artery: The main pulmonary artery is not well visualized. Venous: The inferior vena cava is dilated. There is an approximate 50% respiratory change in the inferior vena cava dimension. Summary: There was not any prior study for comparison. Conclusions The left ventricular chamber size is normal. Mild concentric left ventricular hypertrophy is observed. The estimated ejection fraction is 45-50%. There is septal flattening of the interventricular septum consistent with right ventricular volume or pressure overload. The assessment of diastolic function is non-diagnostic. The left atrium is severely dilated. There is a trace of aortic regurgitation. There is moderate to severe aortic stenosis. There is trace to mild mitral regurgitation. There is mild mitral stenosis. There is mild tricuspid regurgitation. The right ventricular systolic pressure is estimated at 44 mmHg. There is evidence of mild to moderate pulmonary hypertension. There is mild dilatation of the aortic root. Measurements Name Value Normal Range RVIDd (AP) 2D 3 cm (0.9 - 2.6) RVDdMajor (2D) 4.8 cm (2.2 - 4.4) RVAW (2D) 1.2 cm (0.2 - 0.5) RAd ISD 4CH 6.2 cm (3.4 - 4.9) RA (A4C)W 4.7 cm (2.9 - 4.6) IVSd (2D) 1.3 cm (0.6 - 1) LVPWd (2D) 1.1 cm (0.6 - 1) LVIDd (2D) 4.1 cm (3.6 - 5.4) LVIDs (2D) 3.3 cm - LV FS (2D) 18 % (25 - 45) Aortic Annulus 2.2 cm (1.4 - 2.6) Ao root diameter (2D) 3.7 cm (2.1 - 3.5) Ascending Ao 3.4 cm (2.1 - 3.4) LA dimension (AP) 2D 4.2 cm (2.3 - 3.8) LAd ISD 4CH 6.6 cm (2.9 - 5.3) LA ISD 4CH W 5.5 cm (2.5 - 4.5) Name Value Normal Range LA ESV BP (A/L) index 58 ml/m2 - Name Value Normal Range MV E-wave Vmax 0.8 m/sec - MV deceleration time 339 msec - LV septal e' Vmax 0.04 m/sec - LV lateral e' Vmax 0.07 m/sec - LV E:e' septal ratio 20 ratio - LV E:e' lateral ratio 11.4 ratio - Name Value Normal Range AV Vmax 3 m/sec - AV VTI 66 cm - AV peak gradient 36 mmHg - AV mean gradient 18 mmHg - LVOT diameter 2 cm - LVOT Vmax 0.8 m/sec - LVOT VTI 15 cm - LVOT peak gradient 2 mmHg - LVOT mean gradient 1 mmHg - DOI (VTI) 0.23 ratio - LAKESHIA (continuity Vmax) 0.8 cm2 - LAKESHIA (continuity VTI) 0.7 cm2 - Name Value Normal Range MV Vmax 1.8 m/sec - MV VTI 55 cm - MV peak gradient 13 mmHg - MV mean gradient 4 mmHg - MV PHT 118 msec - MVA (PHT) 1.9 cm2 - MVA (continuity VTI) 0.9 cm2 - Name Value Normal Range TR Vmax 2.7 m/sec - TR peak gradient 29 mmHg - RAP 15 mmHg - RVSP 44 mmHg - IVC diameter 2.6 cm - Name Value Normal Range PV Vmax 0.6 m/sec - PV peak gradient 2 mmHg -
--- NOTE | 2019-01-12 17:26 | PN ---
Subjective Date of Service: 01/12/19 Interval History: HOSPITALIST PROGRESS NOTE Patient seen and examined at bedside. Care reviewed and d/w Cony Thomason RN. He feels better today. Comfortable at rest, has some dyspnea with exertion, but less intense than before and recovers quickly. Denies chest pain or palpitations , not aware he's in Afib. Family History: Unchanged from Admission Social History: Unchanged from Admission Past Medical History: Unchanged from Admission Objective Active Medications: Acetaminophen (Tylenol Tab*) 650 mg PO Q4H PRN PRN Reason: FEVER/PAIN Aspirin (Aspirin Ec Tab*) 81 mg PO DAILY [facility] Last Admin: 01/12/19 09:03 Dose: 81 mg Atorvastatin Calcium (Lipitor*) 80 mg PO QAM [facility] Last Admin: 01/12/19 09:03 Dose: 80 mg Dextrose (D50w Syringe 50 Ml*) 12.5 gm IV PUSH .FOR FS < 60 - SS PRN PRN Reason: FS < 60 Fenofibrate (Tricor(Nf)) 145 mg PO QAM [facility]; Protocol Last Admin: 01/12/19 08:55 Dose: Not Given Furosemide (Lasix Iv*) 40 mg IV DAILY [facility] Last Admin: 01/12/19 09:03 Dose: 40 mg Heparin Sodium (Porcine) (Heparin Vial(*)) 5,000 units SUBCUT Q8HR [facility] Last Admin: 01/12/19 14:01 Dose: 5,000 units Insulin Glargine (Lantus(*)) 20 units SUBCUT QAM [facility] Last Admin: 01/12/19 09:04 Dose: 20 unit Insulin Glargine (Lantus(*)) 6 units SUBCUT QPM [facility] Last Admin: 01/12/19 17:19 Dose: 6 units Insulin Human Lispro (Humalog*) 0 units SUBCUT AC [facility]; Protocol Last Admin: 01/12/19 17:19 Dose: 2 unit Metoprolol Succinate (Toprol Xl Tab*) 25 mg PO QAM [facility] Last Admin: 01/12/19 09:03 Dose: 25 mg Nateglinide (Starlix(Nf)) 60 mg PO TID WITH MEALS [facility] Last Admin: 01/12/19 16:05 Dose: Not Given Pantoprazole Sodium (Protonix Tab*) 40 mg PO BID [facility] Last Admin: 02/26/19 09:03 Dose: 40 mg Tamsulosin HCl (Flomax Cap*) 0.4 mg PO QAM [facility] Last Admin: 01/12/19 09:03 Dose: 0.4 mg Vital Signs - 8 hr 01/12/19 01/12/19 11:12 16:17 Temperature 98.2 F 97.2 F Pulse Rate 69 64 Respiratory 20 18 Rate Blood Pressure 137/52 156/53 (mmHg) O2 Sat by Pulse 97 100 Oximetry Oxygen Devices in Use Now: None Appearance: Pleasant elderly gentleman sitting up in a recliner in NAD. Eyes: No Scleral Icterus Ears/Nose/Mouth/Throat: Mucous Membranes Moist Neck: Trachea Midline Respiratory: Symmetrical Chest Expansion and Respiratory Effort, - - BS+ bilaterally with bibasilar crackles Cardiovascular: - - Normal S1 and S2, irregularly irregular Abdominal: NL Sounds; No Tenderness; No Distention Extremities: - - Bilateral LE pitting edema Neurological: Alert and Oriented x 3, NL Muscle Strength and Tone Result Diagrams: 01/12/19 06:21 01/12/19 06:21 Assess/Plan/Problems-Billing Assessment: Mr Freeman is a 78yo M with PMH of HTN, HLD, CAD, type 2 DM, Vtach, osteoarthritis, GERD, PAD, urinary retention with chronic Groves, watermelon stomach, who presented to ED with c/o progressive shortness of breath, found to have CHF exacerbation and newly diagnosed Afib. - Patient Problems (1) Acute diastolic CHF (congestive heart failure) Comment: - Responding well to diuresis - continue Furosemide IV for now. - Echo showed EF 45-50% with moderate to severe aortic stenosis. - Probably change to PO Furosemide in AM - will have to be careful with outpatient diuresis due to . - Continue Metoprolol. - May have enough BP space to add low dose ACEI on discharge. (2) Afib Comment: - Newly diagnosed, but patient is not aware, so unclear for how long he has been in it. - Continue rate control with Metoprolol. - Major issue is anticoagulation - patient has a [id number] score 6 with a 9.7% per year risk of stroke. HAS BLED is 3 with a 3.74 bleeds per 100 patient- years. Case had already been d/w Cardiology (Dr Bautista) who had recommended anticoagulation. He is clearly at a higher risk of stroke than of bleeding, but his GI history complicates the picture. - GI input appreciated - he has a h/o watermelon stomach and iron deficiency, but no h/o GI bleed even with Aspirin on board. Stool was negative for occult blood. Dr Valdovinos is agreeable with anticoagulation and recommended IV Iron x 1 dose in the Hospital and PO on discharge. - Case also d/w his PCP (Dr Ro) - he agrees Warfarin would not be a good choice for this patient and we decided to start Eliquis after reviewing risks and benefits with patient. - He'll need close f/u as outpatient with his PCP and [employer] Machinery [employer] (Dr Mclaughlin). (3) HTN (hypertension) Comment: - Controlled - continue Metoprolol. (4) Diabetes Comment: - Controlled. - Last Hb A1c 6.9 end of last year. - Continue Lantus, Lispro SS, and Nateglinide. (5) Urinary retention Comment: - Continue chronic Groves. (6) DVT prophylaxis Comment: - Eliquis. (7) Full code status Status and Disposition: Change to inpatient. Possible d/c in AM if he tolerates Eliquis well and dyspnea is improved.
[2019-01-12] MEDS ORDERED: Ferric Gluconate IV* 25 MG in NS 0.9% 50 ML* 50 ML IVPB ONE (17:27)
--- NOTE | 2019-01-12 18:07 | CONS ---
GASTROENTEROLOGY CONSULT: DATE: 01/12/19 CONSULTING PHYSICIAN: Dr. Brenna Restrepo. REASON FOR CONSULT: Anticipated anticoagulation for atrial fibrillation in a man with gastric antral ectasias and multiple other prior gastrointestinal conditions. HISTORY: This 78-year-old man presented to the ER short of breath, which has been increasingly present over the last couple of months. He recalls being short of breath just trying to tie his shoes. He had some crackles and signs of volume expansion. This was confirmed in the emergency room last night with an abnormal chest x-ray. His BNP was slightly elevated at 220. He was in atrial fibrillation for the first time. He does carry a diagnosis from the past of atrial flutter and in 2005, he apparently had an EP study and/or ablation. Five weeks ago, he had bidirectional endoscopy by Dr. Lechuga investigating hemoglobin of 10.5 that was found in August. The patient on admission this time had a hemoglobin of 12.4 and 4 CBCs since the August, hemoglobin of 10.7 have all been in the 12s. MCV has been consistent at 87. He says he has not been on iron, so the reason for the increase in hemoglobin since that one value in August is unclear. He has seen Dr. Castillo a couple of times as an outpatient. The patient says that Dr. Castillo feels his values are appropriate. Erythropoietin level 11/25/18 was 22.0 (normal 2.6 to 18.5). In general, recently, he says his appetite has been okay and there has been no acid indigestion or heartburn. He has had some trouble with constipation, but has not seen any blood in the stool and has not had black stool. At the bidirectional endoscopy, he had gastric antral vascular ectasias seen. There was no spontaneous bleeding noted. He was not on any blood thinner or Plavix at that time. He had discontinued it, it appeared sometime 6 months before that. Colonoscopy showed 10 polyps that were all removed non-electrified and he apparently had no ill effects from that. There is no history of blood clots or cerebrovascular disease. \ PAST MEDICAL HISTORY: 1. Coronary artery disease - noncritical demonstrated on prior cardiac cath. 2. Aortic stenosis. 3. History of atrial flutter - see above. 4. History of complicated cholecystectomy with a traditional scar many years ago, later treated for common bile duct stones. 5. Appendectomy with large incision, age 3. 6. Morbid obesity. 7. Type 2 diabetes. 8. History of left leg peripheral vascular disease - Dr. Fierro opened it up a couple of years ago and he was on Plavix for at least a year. 9. Chronic GERD - on pantoprazole for over 10 years and then 5 weeks ago it was doubled, although apparently not for breakthrough peptic control. 10. Chronic back pain. 11. Ankle surgery on the left with a mark in place. 12. Peptic ulcer disease secondary to aspirin with transfusions in the and not requiring surgery. Dr. Heck's notes referred to Helicobacter pylori, so that has been treated. OUTPATIENT MEDS: Of GI relevance, Protonix 40 mg b.i.d., aspirin 81, Glucophage 500 b.i.d. ALLERGIES: PENICILLIN. 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 He was seen with a nephew. His niece, Paola, is his proxy. He quit smoking a pipe in 1992. REVIEW OF SYSTEMS: No history of iron supplements, pills or infusion; CVA, TIA , seizure, TB, hemoptysis, black stool, recent fall or fracture. No history of psoriasis or chronic dermatologic disease. EXAM: He is an elderly man, morbidly obese, in bed, comfortable, stating he is feeling better. His skin is slightly flushed. HEENT exam is unremarkable. Temp is 98.2; pulse 69, irregular; blood pressure 156/53. He has no adenopathy. His lungs are clear and heart sounds are irregular. The abdomen is grossly obese with a large hockey stick shape right upper quadrant scar and a deep 15 cm old appendectomy scar. There are no incisional hernias. There is no tenderness. Perianal inspection is normal and rectum reveals soft stool filling the rectum, submitted for Hemoccult. Extremities show 2+ edema both ankles. Popliteal pulses are intact. Detailed toe exam was not done. Neurologic is grossly nonfocal with symmetric cranial nerves and movement of all 4 extremities. OLD RECORD REVIEW: There are no Hemoccults in the [facility] or [facility] database and none at [facility] where he was seen in consult this fall. IMPRESSION: This 78-year-old man presents with atrial fibrillation. He has aortic stenosis. His risk for cerebrovascular disease would certainly seem to be fairly high and therefore an attempt at cautious anticoagulation would appear warranted. He and his nephew seem motivated to be attentive and careful in doing this. His anemia certainly may have components of longstanding diabetes, other chronic disease, iron depletion from being on a PPI for over 10 years and actually the anemia is relatively mild given the context of having been on aspirin and Plavix fairly recently. Iron supplementation may be appropriate to tie him through this time. Whether or not attempts to ablate the gastric antrum will be warranted or deferred to the future. [id number]/[facility] #: [id number] [facility] HOSPITALGhislaine
[2019-01-12] MEDS: Apixaban* 5 MG TAB PO SCH (18:24)
[2019-01-12] MEDS ORDERED: Ferric Gluconate IV* 100 MG in NS 0.9% 100 ML* 100 ML IVPB ONE (21:00)
[2019-01-12] MEDS: Polyethylene Glycol 3350* 17 GM PACKET PO SCH (21:17)
[2019-01-13] MEDS: Apixaban* 5 MG TAB PO SCH ×2 (06:10→17:42)
[2019-01-13 06:35] LABS: BUN/Creatinine Ratio 24.5 (8-20); Calcium 9.8 mg/dL (8.6-10.3); EGFR African American 89.3 (>60); EGFR Non-African American 73.8 (>60); Potassium 4.1 mmol/L (3.5-5.0)
[2019-01-13] MEDS: NATEGLINIDE 60 MG PO SCH ×3 (07:20→16:46)
[2019-01-13] MEDS: FENOFIBRATE 145 MG PO SCH (07:21)
[2019-01-13] MEDS: Tamsulosin CAP* 0.4 MG PO SCH (08:28)
[2019-01-13] MEDS: Insulin LISPRO* 1 UNITS UNIT SUBCUT SCH ×3 (08:28→17:42)
[2019-01-13] MEDS: Furosemide IV* 10 MG/ML VIAL (40 MG) IV SCH (08:28)
[2019-01-13] MEDS: Polyethylene Glycol 3350* 17 GM PACKET PO SCH (08:28)
[2019-01-13] MEDS: Pantoprazole TAB * 40 MG TAB PO SCH (08:28)
[2019-01-13] MEDS: Metoprolol Succinate XL TAB* 50 MG PO SCH (08:28)
[2019-01-13] MEDS: Atorvastatin* 80 MG TAB PO SCH (08:28)
[2019-01-13] MEDS: Insulin GLARGINE(*) 1 UNITS UNIT SUBCUT SCH ×2 (08:28→17:42)
[2019-01-13] MEDS: Aspirin EC TAB* 81 MG TAB.EC PO SCH (08:28)
[2019-01-13 15:28] VITALS: BP 116/72
--- NOTE | 2019-01-13 22:38 | DS ---
CC: Dr. Ro * DISCHARGE SUMMARY: DATE OF ADMISSION: 01/11/19 DATE OF DISCHARGE: 01/13/19 PRIMARY CARE PROVIDER: Dr. Ro. PRINCIPAL DIAGNOSES: 1. Diastolic congestive heart failure. 2. Atrial fibrillation. SECONDARY DIAGNOSES: 1. Hypertension. 2. Hyperlipidemia. 3. Coronary artery disease. 4. Type 2 diabetes. DISCHARGE MEDICATIONS: 1. Aspirin 81 mg p.o. daily. 2. Fenofibrate 145 mg p.o. daily. 3. Lipitor 80 mg p.o. daily. 4. Levemir 34 units subcutaneous q.a.m. (new dose). 5. Levemir 20 units subcutaneous q.p.m. 6. Flomax 0.4 mg p.o. q.h.s. 7. Protonix 40 mg p.o. daily. 8. Starlix 60 mg p.o. t.i.d. 9. Multivitamin 1 tab p.o. daily. 10. Metformin 500 mg p.o. b.i.d. 11. Metoprolol XL 25 mg p.o. daily (new). 12. Lasix 20 mg p.o. daily (new). 13. Ferrous sulfate 325 mg p.o. daily (new). 14. Eliquis 5 mg p.o. b.i.d. HOSPITAL COURSE: Mr. Freeman is a 78-year-old male, who presented to the emergency room on 01/11/19 with complaints of shortness of breath. The patient developed increasing shortness of breath over the 2 to 3 weeks prior to admission, but worse more significantly over the 1 week prior to admission. He also noted 2 to 3 weeks of bilateral lower extremity edema and the 20-pound weight gain. The patient ultimately was admitted to the hospital for presumed acute diastolic congestive heart failure and for a new diagnosis of atrial fibrillation. The patient was diuresed with IV Lasix. Overall, he notes that his breathing is much improved. His lower extremity edema has also improved some , though continues to be more significant at the end of the day than in the beginning of the day. The patient is now being discharged home on Lasix 20 mg p.o. daily. Of note, he underwent transthoracic echocardiogram during the hospitalization, which revealed an EF of 45% to 50%. It also revealed septal flattening of the interventricular septum consistent with right ventricular volume or pressure overload. The patient is also identified to have new atrial fibrillation suspect that perhaps this is what led to his diastolic congestive heart failure. The patient's heart rate has been under very good control and he is now on metoprolol XL 25 mg daily. Additionally, Eliquis 5 mg p.o. twice daily has been started. Of note, the patient was recently diagnosed with "watermelon stomach." GI consultation was requested to discuss the concerns regarding going on full anticoagulation and at this point, it is felt that the benefits of anticoagulation for stroke prevention outweighed the risks of bleeding. The patient has been recommended to start on ferrous sulfate, which I have ordered for him. The patient will need intermittent H and Hs checked to ensure that he is not bleeding. I did ask the patient to check his stool for any bright red blood; however, if he is going to be on ferrous sulfate, which turns the stool black, it will be hard for him to identify if there is more of a microscopic bleed turning his stool black. Today, on the day of discharge, the patient is feeling quite well. He states that his breathing is back to normal. He is anxious to be going home. The patient again has been prescribed Lasix 20 mg daily, metoprolol XL 25 mg daily, ferrous sulfate 325 mg daily, and Eliquis 5 mg twice daily. The patient's insulin dosing has been increased due to poor blood sugar control in the hospital. His blood sugars will need to be monitored closely at home as he will be going back on his Starlix, which is non-formulary and he was not receiving at [facility]. On the day of discharge, the patient is awake, alert, and oriented sitting up in the chair, in no acute distress. His vital signs are stable with blood pressure of 116/72 and heart rate of 61. His cardiac exam revealed a normal S1 , S2 with an irregularly irregular controlled rhythm. There was left greater than right lower extremity edema. Abdomen was soft, nontender, nondistended. His pulmonary exam revealed clear lungs bilaterally. At this point, it is felt the patient is stable for discharge home. FOLLOWUP CONCERNS: The patient is being discharged home today, 01/13/19. ACTIVITY: Level is as tolerated. DIET: Heart healthy, diabetic. CONDITION ON DISCHARGE: Stable. I have asked the patient to follow up with Dr. Ro in the next 4 to 7 days. Again, followup hemoglobin and hematocrits will be important to ensure he is not bleeding from the Eliquis that he has now been started. TIME SPENT: Thirty-five minutes was spent discharging this patient. [id number]/[facility] #: [id number] JOVANI
== END 2019-01-13 18:48 | disposition home or self-care (01) | DRG 291 ==
LOC: ED 13:04 → MEDTELE 18:37 → OBSVTOIN 01-12 17:30
PROVIDERS: ADMIT Internal Medicine; ATTEND Hospitalist
DX: I11.0 Hypertensive heart disease with heart failure (principal); I50.31 Acute diastolic (congestive) heart failure; I48.91 Unspecified atrial fibrillation; E11.51 Type 2 diabetes mellitus with diabetic peripheral angiopathy without gangrene; I25.10 Atherosclerotic heart disease of native coronary artery without angina pectoris; E78.5 Hyperlipidemia, unspecified; K21.9 Gastro-esophageal reflux disease without esophagitis; I35.0 Nonrheumatic aortic (valve) stenosis; M47.896 Other spondylosis, lumbar region; D64.9 Anemia, unspecified; M19.90 Unspecified osteoarthritis, unspecified site; G89.29 Other chronic pain; M54.9 Dorsalgia, unspecified; E11.36 Type 2 diabetes mellitus with diabetic cataract; E66.01 Morbid (severe) obesity due to excess calories; R40.2412 Glasgow coma scale score 13-15, at arrival to emergency department; R33.9 Retention of urine, unspecified; Z87.891 Personal history of nicotine dependence; Z68.35 Body mass index [BMI] 35.0-35.9, adult; Z87.11 Personal history of peptic ulcer disease; Z79.82 Long term (current) use of aspirin; Z90.49 Acquired absence of other specified parts of digestive tract; Z82.49 Family history of ischemic heart disease and other diseases of the circulatory system; Z88.0 Allergy status to penicillin; Z83.3 Family history of diabetes mellitus; Z79.84 Long term (current) use of oral hypoglycemic drugs; Z79.01 Long term (current) use of anticoagulants
CPT/HCPCS: 36415; 71045; 74018; 80048; 80053; 80061; 81003; 81015; 82270; 83605; 83880; 84484; 85025; 85610; 86140; 87040; 87086; 93005; 93306; 99285; A9270-GY; G0378; J1644; J1940; J2916

== ENCOUNTER 2019-03-07 09:32 | Emergency (ER) | payer MEDICARE ==
--- OUTSIDE RECORDS SUMMARY | 2019-03-07 09:38 | XMS REPORT | Continuity of Care Document ---
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 Active Onset: 08/26/2018 Essential hypertension Jesús Mir II, M.D. Active Onset: 08/26/2018 Type II diabetes mellitus Jesús Mir II, M.D. Active uncontrolled Onset: 08/26/2018 Closed fracture of foot Jesús Mir II, M.D. Active Onset: 08/26/[address] the [address] of Jesús Mir II, M.D. Active occurrence of the external cause Onset: 08/26/2018 Body mass index 30+ - obesity Jesús Mir II, M.D. Active Onset: 08/27/2018 Type 2 diabetes mellitus Brenna Pratt M.D. 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 Pt reports that he smoked a pipe fro age 17 to . Pt reports that he seldom smoked cigarettes. ETOH Use Denies alcohol use quit drink 1991 Tobacco Use Start: Unknown End: Patient is a former quit ~ 1992 Unknown smoker Recreational Drug Use Denies Drug Use Smoking Status Reviewed: 11/09/18 Patient is a former quit ~ 1992 smoker Exercise Type/Frequency [place] Allergies, Adverse Reactions, Alerts Date Description Reaction Status Severity Comments 06/24/2014 Nonsteroidals Active per [facility] allergy list 06/24/2014 Penicillin unknown Active per [facility] allergy list Medications Medication Date Status Form Strength Qnty SIG Indications Ordering Provider Metoprolol 03/25/ Active Tablets ER 50mg 90tab 1 tab by Albin Palomo Succinate ER 2017 24HR s mouth Brand, every M.D. day Lipitor 00/ Active Tablets 80mg 30tab 1 by Unknown [...] 1 by Unknown 0000 mouth every day Silas 02/13/ Hx Tablets 5-325mg 30tab take 1-2 Vassilios 2017 - s tabs by Yoni 03/16/ MD shama 2017 every 4-6 hours as needed for pain. Tramadol 05/01/ Hx Tablets 37.5-325mg 30tab 1-2 tab Payam Hydrochloride/Jim 2016 - s by shama Mayen MD taminophen 2017 4-6 hours as needed Levofloxacin 09/17/ Hx Tablets 500mg 10tab 1 by Mayda Palomo 2015 - s mouth [place], 10/27/ every M.D. 2015 day Levofloxacin 08/23/ Hx Tablets 500mg 14tab 1 by Mayda Palomo 2015 s mouth [place], 09/13/ every M.D. 2015 day Metoprolol 04/09/ Hx Tablets ER 50mg 90tab 1 tab by Albin Palomo Succinate ER 2012 - 24HR s mouth Brand, 01/31/ every M.D. 2016 day Tricor / Hx Tablets 145mg 90tab 1 by Unknown 0000 - s mouth 04/17/ 2016 day Omeprazole / Hx Capsules 20mg 90cap 1 by Unknown 0000 - DR s mouth 10/21/ 2015 day Clopidogrel / Hx Tablets 75mg 1 by Unknown Bisulfate 0000 - mouth 02/05/ 2017 day Levofloxacin / Hx Tablets 500mg one by Unknown 0000 - mouth 11/17/ daily 2018 for 10 days Cyclobenzaprine / Hx Tablets 5mg take one Unknown HCL 0000 - tablet 02/05/ by mouth 2017 every 8 hours prn. may take a second tablet if first not effetive . Cephalexin 00/ Hx Capsules 500mg 1 by Unknown 0000 - mouth 2018 times a day x 7 days ([facility] DC rx) Immunizations CPT Code Status Date Vaccine Reaction Lot # 55092 Given 09/17/2016 Influ Virus Vaccine, no immediate reaction [id number] Quadrivalent, Split noted Virus, Im Fluzone not PF Vital Signs Date Vital Result Comment 11/09/2018 8:16am Height 70 inches 5'10" Weight 252.00 lb BP Systolic 123 mmHg BP Diastolic 64 mmHg Respiratory Rate 16 /min Pain Level 0 BMI (Body Mass Index) 36.2 kg/m2 10/19/2018 11:09am Height 70 inches 5'10" Weight 253.00 lb Respiratory Rate 17 /min Pain Level 0 BMI (Body Mass Index) 36.3 kg/m2 10/14/2018 8:51am Height 70 inches 5'10" Weight 253.25 lb with shoes Heart Rate 76 /min BP Systolic Sitting 110 mmHg lue large cuff BP Diastolic Sitting 62 mmHg lue large cuff BP Systolic Standing 120 mmHg lue large cuff BP Diastolic Standing 68 mmHg lue large cuff Respiratory Rate 15 /min BMI (Body Mass Index) 36.3 kg/m2 Ejection Fraction 50-55% echo. 01/27/2018 09/28/2018 3:09pm Height 70 inches 5'10" Weight 253.00 lb Heart Rate 76 /min Respiratory Rate 18 /min BMI (Body Mass Index) 36.3 kg/m2 09/10/2018 2:23pm Height 70 inches 5'10" Weight 253.12 lb Heart Rate 72 /min BP Systolic Sitting 132 mmHg BP Diastolic Sitting 58 mmHg Respiratory Rate 16 /min Body Temperature 98.3 F BMI (Body Mass Index) 36.3 kg/m2 09/09/2018 3:31pm Height 70 inches 5'10" Weight 250.00 lb Heart Rate 68 /min BP Systolic 154 mmHg BP Diastolic 60 mmHg Body Temperature 97.3 F BMI (Body Mass Index) 35.9 kg/m2 09/01/2018 10:48am Height 70 inches 5'10" Weight 250.00 lb Heart Rate 64 /min BP Systolic 140 mmHg BP Diastolic 68 mmHg BMI (Body Mass Index) 35.9 kg/m2 08/26/2018 2:55pm Height 70 inches 5'10" Weight 248.00 lb Heart Rate 76 /min BP Systolic 130 mmHg BP Diastolic 84 mmHg BMI (Body Mass Index) 35.6 kg/m2 05/22/2018 1:28pm Height 68.75 inches 5'8.75" Weight 246.00 lb BP Systolic Sitting 140 mmHg BP Diastolic Sitting 60 mmHg Pain Level 0 BMI (Body Mass Index) 36.6 kg/m2 03/16/2018 10:31am Height 68.75 inches 5'8.75" Weight 246.00 lb BP Systolic Sitting 122 mmHg BP Diastolic Sitting 70 mmHg Pain Level 0 BMI (Body Mass Index) 36.6 kg/m2 02/18/2018 8:56am Height 68.75 inches 5'8.75" Weight 246.00 lb Heart Rate 66 /min BP Systolic Sitting 138 mmHg BP Diastolic Sitting 76 mmHg Body Temperature 98.9 F Pain Level 2 BMI (Body Mass Index) 36.6 kg/m2 02/09/2018 12:43pm Height 68.75 inches 5'8.75" Weight 246.00 lb Heart Rate 68 /min BP Systolic Sitting 128 mmHg BP Diastolic Sitting 60 mmHg Pain Level 6 BMI (Body Mass Index) 36.6 kg/m2 02/06/2018 2:18pm Height 68.75 inches 5'8.75" Weight 246.00 lb without shoes Heart Rate 66 /min BP Systolic Sitting 124 mmHg Lue lg cuff BP Diastolic Sitting 66 mmHg Lue lg cuff BP Systolic Standing 140 mmHg Lue lg cuff BP Diastolic Standing 60 mmHg Lue lg cuff Respiratory Rate 20 /min BMI (Body Mass Index) 36.6 kg/m2 01/21/2018 12:44pm Height 68.75 inches 5'8.75" Weight 251.00 lb without shoes Heart Rate 72 /min BP Systolic Sitting 110 mmHg Lue lg cuff BP Diastolic Sitting 70 mmHg Lue lg cuff BP Systolic Standing 122 mmHg Lue lg cuff BP Diastolic Standing 74 mmHg Lue lg cuff Respiratory Rate 17 /min BMI (Body Mass Index) 37.3 kg/m2 Ejection Fraction 50-55% date 04/22/17 12/15/2017 1:16pm Height 69 inches 5'9" Weight 253.00 lb Heart Rate 71 /min BP Systolic Sitting 120 mmHg BP Diastolic Sitting 68 mmHg Pain Level 6 BMI (Body Mass Index) 37.4 kg/m2 11/21/2017 8:39am Height 71 inches 5'11" Weight 255.00 lb Heart Rate 77 /min BP Systolic Sitting 124 mmHg BP Diastolic Sitting 86 mmHg Pain Level 5 BMI (Body Mass Index) 35.6 kg/m2 11/18/2017 11:06am Height 71 inches 5'11" Weight 255.00 lb per pt Heart Rate 76 /min reg BP Systolic Sitting 110 mmHg Lue, lg cuff BP Diastolic Sitting 50 mmHg Lue, lg cuff Respiratory Rate 16 /min Body Temperature 98.3 F tympanic Pain Level 8 right hip and back BMI (Body Mass Index) 35.6 kg/m2 10/28/2017 2:06pm Height 71 inches 5'11" Weight 255.00 lb BP Systolic 134 mmHg BP Diastolic 70 mmHg Respiratory Rate 20 /min Pain Level 10 BMI (Body Mass Index) 35.6 kg/m2 07/02/2017 2:36pm Height 71 inches 5'11" Weight 255.00 lb Heart Rate 63 /min BP Systolic 153 mmHg BP Diastolic 63 mmHg Body Temperature 97.8 F Pain Level 1 BMI (Body Mass Index) 35.6 kg/m2 06/06/2017 11:04am Height 71 inches 5'11" Weight 255.00 lb Heart Rate 70 /min BP Systolic 132 mmHg BP Diastolic 60 mmHg BMI (Body Mass Index) 35.6 kg/m2 05/15/2017 8:57am Height 69 inches 5'9" Weight 256.00 lb Heart Rate 72 /min BP Systolic 130 mmHg BP Diastolic 68 mmHg Respiratory Rate 18 /min Body Temperature 96.5 F Pain Level 0 BMI (Body Mass Index) 37.8 kg/m2 04/23/2017 10:05am Height 69 inches 5'9" Weight 256.00 lb [...] Ejection Fraction 50-55% date 04/22/17 ECHO 04/18/2017 10:45am Height 69 inches 5'9" Weight 255.00 lb no shoes Heart Rate 72 /min BP Systolic Sitting 116 mmHg Lue lrg cuff BP Diastolic Sitting 62 mmHg Lue lrg cuff BP Systolic Standing 118 mmHg Lue lrg cuff BP Diastolic Standing 70 mmHg Lue lrg cuff Respiratory Rate 20 /min BMI (Body Mass Index) 37.7 kg/m2 Ejection Fraction 50-55% 03/20/2015-echo 04/15/2017 2:29pm Height 69 inches 5'9" Weight 257.00 lb BP Systolic 115 mmHg BP Diastolic 62 mmHg Body Temperature 97.8 F Pain Level 8 BMI (Body Mass Index) 37.9 kg/m2 04/04/2017 11:10am Height 70 inches 5'10" Weight 258.00 lb Heart Rate 82 /min BP Systolic Sitting 130 mmHg BP Diastolic Sitting 68 mmHg Respiratory Rate 17 /min BMI (Body Mass Index) 37.0 kg/m2 01/31/2017 9:11am Height 70 inches 5'10" Weight 268.00 lb Heart Rate 80 /min BP Systolic Sitting 138 mmHg BP Diastolic Sitting 62 mmHg Respiratory Rate 17 /min BMI (Body Mass Index) 38.4 kg/m2 11/04/2016 1:16pm Height 70 inches 5'10" Weight 268.00 lb Heart Rate 68 /min BP Systolic Sitting 138 mmHg left arm, large cuff BP Diastolic Sitting 66 mmHg left arm, large cuff Respiratory Rate 20 /min BMI (Body Mass Index) 38.4 kg/m2 10/28/2016 3:00pm Height 70 inches 5'10" Weight 269.00 lb Heart Rate 64 /min BP Systolic Sitting 124 mmHg BP Diastolic Sitting 60 mmHg Respiratory Rate 14 /min Body Temperature 98.4 F BMI (Body Mass Index) 38.6 kg/m2 10/21/2016 1:20pm Weight 269.50 lb with boot Heart Rate 66 /min BP Systolic Sitting 142 mmHg Ra lrg cuff BP Diastolic Sitting 66 mmHg Ra lrg cuff 10/07/2016 2:51pm Height 70 inches 5'10" Weight 268.38 lb Heart Rate 80 /min BP Systolic Sitting 112 mmHg BP Diastolic Sitting 60 mmHg Respiratory Rate 14 /min Body Temperature 98.8 F BMI (Body Mass Index) 38.5 kg/m2 09/20/2016 11:28am Height 70 inches 5'10" Weight 263.00 lb Heart Rate 64 /min BP Systolic Sitting 130 mmHg left arm, large cuff BP Diastolic Sitting 66 mmHg left arm, large cuff Respiratory Rate 24 /min BMI (Body Mass Index) 37.7 kg/m2 Ejection Fraction 50-55% 03/20/15 09/17/2016 10:22am Height 70 inches 5'10" Weight 264.00 lb Heart Rate 62 /min BP Systolic Sitting 138 mmHg BP Diastolic Sitting 70 mmHg Respiratory Rate 16 /min Body Temperature 99.0 F BMI (Body Mass Index) 37.9 kg/m2 09/09/2016 1:17pm Height 70 inches 5'10" Weight 264.00 lb Heart Rate 70 /min BP Systolic Sitting 128 mmHg right arm, large cuff BP Diastolic Sitting 68 mmHg right arm, large cuff Respiratory Rate 24 /min BMI (Body Mass Index) 37.9 kg/m2 08/23/2016 10:11am Height 70 inches 5'10" Weight 235.00 lb w/ shoes Heart Rate 68 /min BP Systolic Sitting 134 mmHg Lue, lg cuff BP Diastolic Sitting 76 mmHg Lue, lg cuff BP Systolic Standing 130 mmHg Lue BP Diastolic Standing 70 mmHg Lue Respiratory Rate 16 /min BMI (Body Mass Index) 33.7 kg/m2 Ejection Fraction 50-55% as of 03/20/15 echo 08/23/2016 8:43am Height 70 inches 5'10" Weight 242.00 lb Heart Rate 72 /min BP Systolic Sitting 134 mmHg BP Diastolic Sitting 58 mmHg Respiratory Rate 16 /min Body Temperature 98.2 F BMI (Body Mass Index) 34.7 kg/m2 08/18/2015 11:11am Height 70 inches 5'10" Weight 253.00 lb w/ sneakers Heart Rate 64 /min reg BP Systolic Sitting 132 mmHg Rue, reg cuff BP Diastolic Sitting 60 mmHg Rue, reg cuff BP Systolic Standing 124 mmHg Rue BP Diastolic Standing 62 mmHg Rue Respiratory Rate 18 /min BMI (Body Mass Index) 36.3 kg/m2 Ejection Fraction 50-55% as of 03/20/15 echo 06/30/2014 12:45pm Height 70 inches 5'10" Weight 272.00 lb with shoes Heart Rate 66 /min BP Systolic 132 mmHg LA lg cuff stand BP Diastolic 64 mmHg LA lg cuff stand BP Systolic Sitting 130 mmHg LA lg cuff sit BP Diastolic Sitting 60 mmHg LA lg cuff sit Respiratory Rate 16 /min BMI (Body Mass Index) 39.0 kg/m2 Results Test Date Facility Test Result H/L Range Note Type & Screen 02/05/2018 [facility] Patient Blood O Positive [address] [place] [address] [phone] Antibody Screen NEGATIVE Laboratory test 02/05/2018 [facility] Partial 31.7 seconds N 26.0-36.[address] [place] [address] PTT [phone] TSH (Thyroid Stim Horm) 1.21 mcIU/mL N 0.34-5.60 3 Inr/Protime 02/05/2018 [facility] Inr 0.99 N 0.77-1.02 [place] [address] [phone] CBC No Diff 02/05/2018 [facility] White Blood 5.2 10^3/uL N 3.5-10.8 [place] [address] [phone] Red Blood Count 4.43 10^6/uL N 4.0-5.4 Hemoglobin 13.1 g/dL Low 14.0-18.0 Hematocrit 39 % Low 42-52 Mean Corpuscular Volume 87 fL N 80-94 Mean Corpuscular Hemoglobin 30 pg N 27-31 Mean Corpuscular HGB Conc 34 g/dL N 31-36 Red Cell Distribution Width 14 % N 10.5-15 Platelet Count 199 10^3/uL N 150-450 Mean Platelet Volume 8.3 um3 N 7.4-10.4 Urinalysis Profile 02/05/2018 [facility] [place] [address] [phone] Urine Appearance Clear Urine Specific [place] 1.017 N 1.010-1.030 Urine pH 6.0 N 5-9 Urine Urobilinogen Negative Negative Urine Ketones Negative Negative Urine Protein Negative Negative Urine Leukocytes Negative Negative Urine Blood Negative Negative * * Abnormal Negative 4 Urine Nitrite Negative Negative Urine Bilirubin Negative Negative Urine Glucose 1+(50 mg/dL) Abnormal Negative Laboratory test 12/17/2016 [facility] Point of Care 174 mg/dL High 74-[address] [place] [address] [phone] Laboratory test 12/17/2016 [facility] Point of Care 150 mg/dL High 74-[address] [place] [address] [phone] Laboratory test 12/13/2016 [facility] Point of Care 161 mg/dL High 74-106 [address] [place] [address] [phone] Laboratory test 12/13/2016 [facility] Point of Care 163 mg/dL High 74-106 [address] [place] [address] [phone] Laboratory test 12/12/2016 [facility] Point of Care 212 mg/dL High 74-106 [address] [place] [address] [phone] Laboratory test 12/12/2016 [facility] Point of Care 196 mg/dL High 74-106 [address] [place] [address] [phone] Laboratory test 12/11/2016 [facility] Point of Care 135 mg/dL High 74-106 [address] [place] [address] [phone] Laboratory test 12/11/2016 [facility] Point of Care 123 mg/dL High 74-106 [address] [place] [address] [phone] Laboratory test 12/10/2016 [facility] Point of Care 214 mg/dL High 74-106 [address] [place] [address] [phone] Laboratory test 12/10/2016 [facility] Point of Care 235 mg/dL High 74-106 [address] [place] [address] [phone] Laboratory test 12/09/2016 [facility] Point of Care 99 mg/dL N 74-106 [address] [place] [address] [phone] Laboratory test 12/09/2016 [facility] Point of Care 131 mg/dL High 74-106 [address] [place] [address] [phone] Laboratory test 12/09/2016 [facility] Point of Care 78 mg/dL N 74-106 [address] [place] [address] [phone] Laboratory test 12/06/2016 [facility] Point of Care 240 mg/dL High 74-106 [address] [place], [place] [id number] [phone] Laboratory test 12/06/2016 [facility] Point of Care 179 mg/dL High 74-106 [address] [place], [place] [id number] [phone] Laboratory test 12/05/2016 [facility] Point of Care 169 mg/dL High 74-106 [address] [place], [place] [id number] [phone] Laboratory test 12/05/2016 [facility] Point of Care 124 mg/dL High 74-106 [address] Gl[place], [place] [id number] [phone] Laboratory test 12/04/2016 [facility] Point of Care 202 mg/dL High 74-106 [address] [place] [address] [phone] Laboratory test 12/04/2016 [facility] Point of Care 193 mg/dL High 74-106 [address] [place] [address] [phone] Laboratory test 12/03/2016 [facility] Point of Care 110 mg/dL High 74-106 [address] [place] [address] [phone] Laboratory test 12/03/2016 [facility] Point of Care 99 mg/dL N 74-106 [address] [place] [address] [phone] Laboratory test 12/03/2016 [facility] Point of Care 114 mg/dL High 74-106 [address] [place], [place] [id number] [phone] Laboratory test 12/03/2016 [facility] Point of Care 74 mg/dL N 74-106 [address] [place] [address] [phone] Laboratory test 12/02/2016 [facility] Point of Care 184 mg/dL High 74-106 [address] [place] [address] [phone] Laboratory test 12/02/2016 [facility] Point of Care 194 mg/dL High 74-106 [address] [place] [address] [phone] Laboratory test 11/29/2016 [facility] Point of Care 189 mg/dL High 74-106 [address] [place] [address] [phone] Laboratory test 11/29/2016 [facility] Point of Care 191 mg/dL High 74-106 [address] [place], [place] [address]199739 [phone] Laboratory test 11/28/2016 [facility] Point of Care 210 mg/dL High 74-106 [address] [place], [place] [address]246 [phone] Laboratory test 11/28/2016 [facility] Point of Care 248 mg/dL High 74-106 [address] [place] [address] [phone] Laboratory test 11/28/2016 [facility] Point of Care 191 mg/dL High 74-106 [address] [place] [address] [phone] Laboratory test 11/27/2016 [facility] Point of Care 152 mg/dL High 74-106 [address] [place], [place] [address]14 [phone] Laboratory test 11/27/2016 [facility] Point of Care 134 mg/dL High 74-106 [address] [place] [address] [phone] Laboratory test 11/27/2016 [facility] Point of Care 111 mg/dL High 74-106 [address] [place] [address] [phone] Laboratory test 11/26/2016 [facility] Point of Care 205 mg/dL High 74-106 [address] [place], [place] 4632679 [phone] Laboratory test 11/26/2016 [facility] Point of Care 263 mg/dL High 74-106 [address] [place] [address] [phone] Laboratory test 11/25/2016 [facility] Point of Care 130 mg/dL High 74-106 [address] [place] [address] [phone] Laboratory test 11/25/2016 [facility] Point of Care 145 mg/dL High 74-106 [address] [place] [address] [phone] Laboratory test 11/22/2016 [facility] Point of Care 192 mg/dL High 74-106 [address] [place], [place] 8430241 [phone] Laboratory test 11/22/2016 [facility] Point of Care 226 mg/dL High 74-106 [address] [place], [place] 6293567 [phone] Laboratory test 11/21/2016 [facility] Point of Care 130 mg/dL High 74-106 [address] [place], [place] 093[address]90 [phone] Laboratory test 11/21/2016 [facility] Point of Care 137 mg/dL High 74-106 [address] [place] [address] [phone] Laboratory test 11/21/2016 [facility] Point of Care 91 mg/dL N 74-106 [address] [place] [address] [phone] Laboratory test 11/20/2016 [facility] Point of Care 230 mg/dL High 74-106 [address] [place], [place] 4854061 [phone] Laboratory test 11/20/2016 [facility] Point of Care 265 mg/dL High 74-106 [address] [place], [place] 3095948 [phone] Laboratory test 11/19/2016 [facility] Point of Care 212 mg/dL High 74-106 [address] [place] [address] [phone] Laboratory test 11/19/2016 [facility] Point of Care 202 mg/dL High 74-106 [address] [place], [place] 096[address]43 [phone] Laboratory test 11/07/2016 [facility] Point of Care 221 mg/dL High 74-106 [address] [place], [place] 5993181 [phone] Laboratory test 11/07/2016 [facility] Point of Care 204 mg/dL High 74-106 [address] [place] [address] [phone] Laboratory test 11/06/2016 [facility] Point of Care 144 mg/dL High 74-106 [address] [place] [address] [phone] Laboratory test 11/06/2016 [facility] Point of Care 129 mg/dL High 74-106 [address] [place], [place] 1973046 [phone] Laboratory test 11/05/2016 [facility] Point of Care 295 mg/dL High 74-106 [address] [place], [place] 8365022 [phone] Laboratory test 11/05/2016 [facility] Point of Care 173 mg/dL High 74-106 [address] [place], [place] 2647808 [phone] Laboratory test 11/04/2016 [facility] Point of Care 97 mg/dL N 74-106 [address] [place], [place] [address]26[address]39 [phone] Laboratory test 11/04/2016 [facility] Point of Care 139 mg/dL High 74-106 [address] [place], [place] 3022945 [phone] Laboratory test 11/04/2016 [facility] Point of Care 121 mg/dL High 74-106 [address] [place], [place] 6083222 [phone] Laboratory test 11/01/2016 [facility] Point of Care 99 mg/dL N 74-106 [address] [place], [place] 1742567 [phone] Laboratory test 11/01/2016 [facility] Point of Care 176 mg/dL High 74-106 [address] [place], [place] 2248194 [phone] Laboratory test 10/31/2016 [facility] Point of Care 94 mg/dL N 74-106 [address] [place] [address] [phone] Laboratory test 10/31/2016 [facility] Point of Care 138 mg/dL High 74-106 [address] [place], [place] 1527055 [phone] Laboratory test 10/30/2016 [facility] Point of Care 139 mg/dL High 74-106 [address] [place], [place] [id number] [phone] Laboratory test 10/30/2016 [facility] Point of Care 189 mg/dL High 74-106 [address] [place] [address] [phone] Laboratory test 10/29/2016 [facility] Point of Care 125 mg/dL High 74-106 [address] Glucose [place], [place] [id number] [phone] Laboratory test 10/29/2016 [facility] Point of Care 139 mg/dL High 74-106 [address] Glucose [place], [place] [id number] [phone] Laboratory test 10/28/2016 [facility] Point of Care 183 mg/dL High 74-106 [address] [place] [place] [address] [phone] Laboratory test 10/28/2016 [facility] Point of Care 190 mg/dL High 74-106 [address] [place] [address] [phone] Laboratory test 10/25/2016 [facility] Point of Care 161 mg/dL High 74-106 [address] Gl[place], [place] [id number] [phone] Laboratory test 10/25/2016 [facility] Point of Care 181 mg/dL High 74-106 [address] [place] [place] [address] [phone] Laboratory test 10/24/2016 [facility] Point of Care 198 mg/dL High 74-106 [address] [place] [place] [address] [phone] Laboratory test 10/24/2016 [facility] Point of Care 199 mg/dL High 74-106 [address] [place], [place] [address]993 [phone] Laboratory test 10/24/2016 [facility] Point of Care 294 mg/dL High 74-106 [address] [place] [place] [address] [phone] Laboratory test 10/23/2016 [facility] Point of Care 115 mg/dL High 74-106 [address] [place] [place] [address] [phone] Laboratory test 10/23/2016 [facility] Point of Care 141 mg/dL High 74-106 [address] Gl[place], [place] [address] [phone] Laboratory test 10/22/2016 [facility] Point of Care 236 mg/dL High 74-106 [address] [place] [place] [address] [phone] Laboratory test 10/22/2016 [facility] Point of Care 238 mg/dL High 74-106 [address] [place] [place] [address] [phone] Laboratory test 10/21/2016 [facility] Point of Care 190 mg/dL High 74-106 [address] [place] [place] [address] [phone] Laboratory test 10/21/2016 [facility] Point of Care 175 mg/dL High 74-106 [address] [place] [place] [address] [phone] Laboratory test 10/18/2016 [facility] Point of Care 182 mg/dL High 74-106 [address] [place] [address] [phone] Laboratory test 10/18/2016 [facility] Point of Care 304 mg/dL High 74-106 [address] [place] [address] [phone] Laboratory test 10/17/2016 [facility] Point of Care 143 mg/dL High 74-106 [address] [place] [address] [phone] Laboratory test 10/17/2016 [facility] Point of Care 129 mg/dL High 74-106 [address] [place] [place] [address] [phone] Laboratory test 10/08/2016 [facility] C Reactive 1.99 mg/L N < 5.00 [address] [place] [address] [phone] Laboratory test 09/16/2016 [facility] Point of Care 130 mg/dL High 74-106 [address] [place] [place] [address] [phone] Laboratory test 09/16/2016 [facility] Point of Care 117 mg/dL High 74-106 [address] [place] [address] [phone] CBC Auto Diff 09/13/2016 [facility] White Blood 6.9 N 3.5- 10.[address] Count 10^3/[place] [address] [phone] Red Blood Count 4.60 10^6/uL N 4.0-5.4 Hemoglobin 12.8 g/dL Low 14.0-18.0 Hematocrit 39 % Low 42-52 Mean Corpuscular Volume 85 fL N 80-94 Mean Corpuscular Hemoglobin 28 pg N 27-31 Mean Corpuscular HGB Conc 33 g/dL N 31-36 Red Cell Distribution Width 15 % N 10.5-15 Platelet Count 184 10^3/uL N 150-450 Mean Platelet Volume 9 um3 N 7.4-10.4 Abs Neutrophils 4.7 10^3/uL N 1.5-7.7 Abs Lymphocytes 1.4 10^3/uL N 1.0-4.8 Abs Monocytes 0.6 10^3/uL N 0-0.8 Abs Eosinophils 0.2 10^3/uL N 0-0.6 Abs Basophils 0.1 10^3/uL N 0-0.2 Abs Nucleated RBC 0 10^3/uL N Granulocyte % 67.6 % N 38-83 Lymphocyte % 20.2 % Low 25-47 Monocyte % 8.9 % N 1-9 Eosinophil % 2.5 % N 0-6 Basophil % 0.8 % N 0-2 Nucleated Red Blood Cells % 0.1 N Basic Metabolic Panel 09/13/2016 [facility] Sodium 134 mmol/L N 133-145 [address] [place], [place] [id number] [phone] Potassium 4.7 mmol/L N 3.5-5.0 Chloride 103 mmol/L N 101-111 Co2 Carbon Dioxide 24 mmol/L N 22-32 Anion Gap 7 mmol/L N 2-11 Glucose 129 mg/dL High 70-100 Blood Urea Nitrogen 26 mg/dL High 6-24 Creatinine 1.07 mg/dL N 0.67-1.17 BUN/Creatinine Ratio 24.3 High 8-20 Calcium 9.8 mg/dL N 8.6-10.3 Egfr Non- 67.0 N >60 Egfr 86.2 N >60 88 Laboratory test 09/13/2016 [facility] Point of 147 mg/dL High 74-106 [address] Care Glucose [place], [place] [id number] [phone] Laboratory test 09/13/2016 [facility] Point of 163 mg/dL High 74-106 [address] [place] [address] [phone] Laboratory test 09/12/2016 [facility] Point of 163 mg/dL High 74-106 [address] Care Glucose [place], [place] [id number] [phone] Laboratory test 09/12/2016 [facility] Point of 240 mg/dL High 74-106 [address] Care Glucose [place], [place] [address] [phone] Laboratory test 09/11/2016 [facility] Point of 151 mg/dL High 74-106 [address] Care Glucose [place], [place] [address] [phone] Laboratory test 09/11/2016 [facility] Point of 122 mg/dL High 74-106 94 finding [address] [address] [phone] Laboratory test 08/22/2016 [facility] Tissue (BX) SEE RESULT 95, [address] Culture & [place] [address] [phone] Surgical Pathology SEE RESULT BELOW 97 Basic Metabolic Panel 08/22/2016 [facility] Sodium 136 mmol/L N 133-145 [address] [place] [address] [phone] Potassium 5.0 mmol/L N 3.5-5.0 Chloride 102 mmol/L N 101-111 Co2 Carbon Dioxide 26 mmol/L N 22-32 Anion Gap 8 mmol/L N 2-11 Glucose 217 mg/dL High 70-100 Blood Urea Nitrogen 27 mg/dL High 6-24 Creatinine 1.17 mg/dL N 0.67-1.17 BUN/Creatinine Ratio 23.1 High 8-20 Calcium 9.6 mg/dL N 8.6-10.3 Egfr Non- 60.4 N >60 Egfr 77.7 N >60 98 Laboratory test 08/22/2016 [facility] Prealbumin 20 mg/dL N 18 -38 finding [address] [place] [address] [phone] CBC Auto Diff 08/22/2016 [facility] White Blood 7.2 N 3.5- 10.[address] Count 10^3/[place] [address] [phone] Red Blood Count 4.28 10^6/uL N 4.0-5.4 Hemoglobin 12.0 g/dL Low 14.0-18.0 Hematocrit 36 % Low 42-52 Mean Corpuscular Volume 85 fL N 80-94 Mean Corpuscular Hemoglobin 28 pg N 27-31 Mean Corpuscular HGB Conc 33 g/dL N 31-36 Red Cell Distribution Width 14 % N 10.5-15 Platelet Count 247 10^3/uL N 150-450 Mean Platelet Volume 9 um3 N 7.4-10.4 Abs Neutrophils 4.8 10^3/uL N 1.5-7.7 Abs Lymphocytes 1.5 10^3/uL N 1.0-4.8 Abs Monocytes 0.6 10^3/uL N 0-0.8 Abs Eosinophils 0.2 10^3/uL N 0-0.6 Abs Basophils 0.1 10^3/uL N 0-0.2 Abs Nucleated RBC 0.01 10^3/uL N Granulocyte % 67.1 % N 38-83 Lymphocyte % 20.9 % Low 25-47 Monocyte % 9.0 % N 1-9 Eosinophil % 2.2 % N 0-6 Basophil % 0.8 % N 0-2 Nucleated Red Blood Cells % 0.1 N Laboratory test 08/22/2016 [facility] Hemoglobin A1c 9.0 % High Less [address] (Glyco HGB) than 6.0 [place], [place] [id number] [phone] Wound 08/08/2016 [facility] Wound/Misc SEE RESULT 100 Culture/Sensi [address] [place] [address] Stain [phone] 1 AA 02/12 2 AA 02/12 3 AA 02/12 4 *Ascorbic acid is present which may interfere with detection of blood. 5 Mortgage Specialist: AMARILIS GLOVER 6 Mortgage Specialist: AMARILIS GLOVER 7 Mortgage Specialist: AMARILIS GLOVER 8 Mortgage Specialist: AMARILIS GLOVER 9 Mortgage Specialist: AMARILIS GLOVER 10 Mortgage Specialist: [id number] MOLIVIATIS ADALBETRO 11 Mortgage Specialist: [id number] MOLIVIATIS ADALBERTO 12 Mortgage Specialist: [id number] MOLIVIATIS ADALBERTO 13 Mortgage Specialist: [id number] MOLIVIATIS ADALBERTO 14 Mortgage Specialist: [id number] MOLIVIATIS ADALBERTO 15 Mortgage Specialist: [id number] MOLIVIATIS ADALBERTO 16 Mortgage Specialist: [id number] MOLIVIATIS ADALBERTO 17 Mortgage Specialist: [id number] MOLIVIATIS ADALBERTO 18 Mortgage Specialist: [id number] MOLIVIATIS ADALBERTO 19 Mortgage Specialist: [id number] MOLIVIATIS ADALBERTO 20 Mortgage Specialist: [id number] MOLIVIATIS ADALBERTO 21 Mortgage Specialist: [id number] MOLIVIATIS ADALBERTO 22 Mortgage Specialist: [id number] MOLIVIATIS ADALBERTO 23 Mortgage Specialist: [id number] MOLIVIATIS ADALBERTO 24 Mortgage Specialist: [id number] MOLIVIATIS ADALBERTO 25 Mortgage Specialist: [id number] MOLIVIATIS ADALBERTO 26 HBO Protocol Mortgage Specialist: [id number] MOLIVIATIS ADALBERTO 27 Mortgage Specialist: [id number] MOLIVIATIS ADALBERTO 28 Mortgage Specialist: [id number] MOLIVIATIS ADALBERTO 29 Mortgage Specialist: [id number] MOLIVIATIS ADALBERTO 30 Mortgage Specialist: [id number] MOLIVIATIS ADALBERTO 31 Mortgage Specialist: [id number] MOLIVIATIS ADALBERTO 32 Mortgage Specialist: [id number] MOLIVIATIS ADALBERTO 33 Mortgage Specialist: [id number] MOLIVIATIS ADALBERTO 34 Mortgage Specialist: [id number] MOLIVIATIS ADALBERTO 35 Mortgage Specialist: [id number] MOLIVIATIS ADALBERTO 36 Mortgage Specialist: [id number] MOLIVIATIS ADALBERTO 37 Mortgage Specialist: [id number] MOLIVIATIS ADALBERTO 38 Mortgage Specialist: [id number] MOLIVIATIS ADALBERTO 39 Mortgage Specialist: [id number] MOLIVIATIS ADALBERTO 40 Mortgage Specialist: [id number] PARLETT PRAVIN R 41 Mortgage Specialist: [id number] PARLETT PRAVIN R 42 Mortgage Specialist: [id number] ROSENDA STUBBS 43 Mortgage Specialist: [id number] HERZOG ENOC 44 Mortgage Specialist: [id number] MOLIVIATIS ADALBERTO 45 HBO Protocol Mortgage Specialist: [id number] MOLIVIATIS ADALBERTO 46 Mortgage Specialist: [id number] MOLIVIATIS ADALBERTO 47 Mortgage Specialist: [id number] MOLIVIATIS ADALBERTO 48 Mortgage Specialist: [id number] MOLIVIATIS ADALBERTO 49 Mortgage Specialist: [id number] MOLIVIATIS ADALBERTO 50 Mortgage Specialist: [id number] MOLIVIATIS ADALBERTO 51 Mortgage Specialist: [id number] MOLIVIATIS ADALBERTO 52 Mortgage Specialist: [id number] MOLIVIATIS ADALBERTO 53 Mortgage Specialist: [id number] MOLIVIATIS ADALBERTO 54 Mortgage Specialist: [id number] MOLIVIATIS ADALBERTO 55 Mortgage Specialist: [id number] MOLIVIATIS ADALBERTO 56 Mortgage Specialist: [id number] MOLIVIATIS ADALBERTO 57 Mortgage Specialist: [id number] MOLIVIATIS ADALBERTO 58 HBO Protocol Mortgage Specialist: [id number] MOLIVIATIS ADALBERTO 59 Mortgage Specialist: [id number] MOLIVIATIS ADALBERTO 60 Mortgage Specialist: [id number] PRITTS DIONE 61 Mortgage Specialist: [id number] PRITTS DIONE 62 Mortgage Specialist: [id number] PRITTS DIONE 63 Mortgage Specialist: [id number] PRITTS DIONE 64 Mortgage Specialist: [id number] MOLIVIATIS ADALBERTO 65 Mortgage Specialist: [id number] MOLIVIATIS ADALBERTO 66 Mortgage Specialist: [id number] MOLIVIATIS ADALBERTO 67 Mortgage Specialist: [id number] MOLIVIATIS ADALBERTO 68 Mortgage Specialist: [id number] MOLIVIATIS ADALBERTO 69 Mortgage Specialist: [id number] MOLIVIATIS ADALBERTO 70 Mortgage Specialist: [id number] MOLIVIATIS ADALBERTO 71 Mortgage Specialist: [id number] MOLIVIATIS ADALBERTO 72 Mortgage Specialist: [id number] MOLIVIATIS ADALBERTO 73 Mortgage Specialist: [id number] MOLIVIATIS ADALBERTO 74 Mortgage Specialist: [id number] MOLIVIATIS ADALBERTO 75 Mortgage Specialist: [id number] MOLIVIATIS ADALBERTO 76 Mortgage Specialist: [id number] MOLIVIATIS ADALBERTO 77 Mortgage Specialist: [id number] MOLIVIATIS ADALBERTO 78 Mortgage Specialist: [id number] MOLIVIATIS ADALBERTO 79 Mortgage Specialist: [id number] MEIXELL MICHI 80 Mortgage Specialist: [id number] MEIXELL MICHI 81 Mortgage Specialist: [id number] MOLIVIATIS ADALBERTO 82 Mortgage Specialist: [id number] MOLIVIATIS ADALBERTO 83 Mortgage Specialist: [id number] MOLIVIATIS ADALBERTO 84 Mortgage Specialist: [id number] MOLIVIATIS ADALBERTO 85 Acute inflammation: >10.00 86 Mortgage Specialist: [id number] MOLIVIATIS ADALBERTO 87 Mortgage Specialist: [id number] MOLIVIATIS ADALBERTO 88 Because ethnic data is not always readily [...] 15-29 5 Kidney failure <15 (or dialysis) 89 Mortgage Specialist: [id number] MOLIVIATIS ADALBERTO 90 Mortgage Specialist: [id number] MOLIVIATIS ADALBERTO 91 Mortgage Specialist: [id number] MOLIVIATIS ADALBERTO 92 Mortgage Specialist: [id number] MOLIVIATIS ADALBERTO 93 Mortgage Specialist: [id number] MOLIVIATIS ADALBERTO 94 Mortgage Specialist: [id number] MOLIVIATIS ADALBERTO 95 LEFT GREAT TOE 96 SEE RESULT BELOW Name: DARRYL FREEMAN : [address]: Fritz Joyce MD Acct: [id number] Unit: [id number] AGE: 76 Location: WOUND Re08/22/16 SEX: M Status: REG REF SPEC: [id number] BARBARA: 08/22/[address] [facility] [address]: Fritz Joyce MD REQ: [id number] RECD: 08/22/16 STATUS: PRICE BURRIS DR: Momo Ro MD _ SOURCE: TISSUE SPDESC:LEFT BIG ORDERED: Tissue Cult/GS COMMENTS: LEFT GREAT TOE Procedure Result Reported Site Tissue Gram Stain Final 08/22/16- 1342 ML 4+ Neutrophils 4+ Gram Positive Cocci 2+ Gram Positive Bacilli 3+ Gram Negative Bacilli Tissue Culture Final 08/24/16- 0812 ML Organism 1 ENTEROCOCCUS FAECALIS Quantity 3+ [...] performed at Main Lab DEPARTMENT OF PATHOLOGY, [address] [place] [address] Jn Diaz M.D. Director KATYA # [id number] Patient: DARRYL FREEMAN [id number] (Continued) Specimen: [id number] Collected: 08/22/16 Received: 08/22/16 (Continued) Procedure Result Reported Site Tissue Culture Final (continued) 08/24/16811 1. ENTEROCOCCUS FAECALIS (continued) MThiIThiCThi RX --------- ------ * Ampicillin/Sulbactam-Deduced S * These antibiotics are not available in the [facility] Formulary Contact the Microbiology Department for any additional antibiotic reporting. * ML - MAIN LAB ([facility]) . END OF REPORT * ML=Testing performed at Main Lab DEPARTMENT OF PATHOLOGY, [address] [place] [address] Jn Diaz M.D. Director [facility] # [id number] 97 SEE RESULT BELOW Name: DARRYL FREEMAN : [address]: Fritz Joyce MD Acct: [id number] Unit: [id number] AGE: 76 Location: WOUND Re08/22/16 SEX: M Status: REG REF SPEC: [id number] BARBARA: 08/22/[address] [facility] [address]: Fritz Joyce MD REQ: [id number] RECD: 08/22/16 STATUS: SOUT _ ORDERED: Decal, [...] performed at Main Lab DEPARTMENT OF PATHOLOGY, [address] [place] [address] Jn Diaz M.D. Director [facility] # [id number] 98 Because ethnic data is not always readily [...] 15-29 5 Kidney failure <15 (or dialysis) 99 Therapeutic target for the treatment of diabetes Mellitus patients is <7% HBA1C, and in selective patients <6.0%.Please refer to [place] [employer] Diabetic care guidelines for further information. 100 SEE RESULT BELOW Name: DARRYL FREEMAN : [address]: Fritz Joyce MD Acct: [id number] Unit: [id number] AGE: 76 Location: WOUND Re08/08/16 SEX: M Status: REG REF SPEC: [id number] BARBARA: 08/08/16-[address] [facility] [address]: Fritz Joyce MD REQ: [id number] RECD: 08/08/16 STATUS: PRICE MALCOLM DR: Momo Ro MD _ SOURCE: WOUND SPDESC: ORDERED: Culture Stain COMMENTS: LEFT GREAT TOE [facility] via [employer] system by [id number] at 1435 on 08/10/16. ATTEMPTED VERBAL: NO RESPONSE FROM OFFICE Procedure Result Reported Site Wound/Misc Gram Stain Final 08/08/16- 1736 ML 1+ Epithelial Cells 4+ Neutrophils 3+ Gram Positive Cocci 2+ Gram Negative Bacilli 1+ Gram Positive Bacilli Wound/Misc Culture Final 08/11/16- 46 ML Organism 1 STREP PYOGENES (GRP A) Quantity 2+ Organism 2 ENTEROCOCCUS FAECALIS Quantity 2+ Organism 3 MORGANELLA MORGANII Quantity 1+ 1. STREP PYOGENES (GRP A) M.I.C. RX --------- ------ Chloramphenicol 4 S Ampicillin <=0.06 S Penicillin <=0.03 S Cefepime <=0.25 S CONTINUED ON NEXT PAGE * ML=Testing performed at Main Lab DEPARTMENT OF PATHOLOGY, [address] [place] [address] Jn Diaz M.D. Director [facility]IV[facility] # [id number] Patient: DARRYL FREEMAN [id number] (Continued) Specimen: [id number] Collected: 08/08/16-1539 Received: 08/08/16-1626 (Continued) Procedure Result Reported Site Wound/Misc Culture Final (continued) 08/11/16- 845 1. STREP PYOGENES (GRP A) (continued) M.I.C. [...] performed at Main Lab DEPARTMENT OF PATHOLOGY, [address] [place] [address] Jn Diaz M.D. Director KATYA # [id number] Patient: DARRYL FREEMAN [id number] (Continued) Specimen: [id number] Collected: 08/08/16 Received: 08/08/16 (Continued) Procedure Result Reported Site [...] These antibiotics are not available in the [facility] Formulary Contact the Microbiology Department for any additional antibiotic reporting. Contact the Microbiology Department for any additional antibiotic reporting. * ML - MAIN LAB ([facility]) . END OF REPORT * ML=Testing performed at Main Lab DEPARTMENT OF PATHOLOGY, [address] [place] [address] Jn Diaz M.D. Director [facility] # [id number] Procedures Date Code Description Status 01/12/2019 53802 ECHO Transthorasic Realtime 2D W Doppler & Color Flow Hosp Completed 10/14/2018 46007 EKG Tracing & Interpretation Completed 02/12/201846934 Allograft For Spine Surgery, Morselized Completed 02/12/201800065 Autograft For Spine Surgery, Morselized Completed 02/12/201834044 Arthrodesis Posterior Interbody Technique Completed 02/12/201895353 Arthrodesis Posterior Interbody Technique Completed 02/12/201854491 Non-Segmental Instrumentation Posterior 1 Interspace Completed 02/12/201801773 Non-Segmental Instrumentation Posterior 1 Interspace Completed 02/12/2018 20141 Insertion Interbody Biomechanical Device; Each Interspace Completed 02/12/2018 67176 Insertion Interbody Biomechanical Device; Each Interspace Completed 02/12/2018 48286 Stereotactic Computer-Assisted, Spinal Completed 02/12/2018 63140 Calles/Facet/Foraminotomy;Vertebral Segment; Lumbar Completed 02/12/2018 28140 Calles/Facet/Foraminotomy;Vertebral Segment; Lumbar Completed 01/27/2018 24148 ECHO Transthoracic, Real-Time 2D With Doppler And Color Completed Flow 01/27/2018 08635 ECHO Transthoracic, Real-Time 2D With Doppler And Color Completed Flow 01/26/2018 94442 Treadmill Interp/Report Only Completed 01/26/2018 04941 Stress Test Supervsn W/Out I/R Completed 01/26/2018 83859 Myocardial Perfusion Imaging Tomographic (Spect) Multiple Completed Studies 01/21/2018 47662 EKG Tracing & Interpretation Completed 06/19/2017 26636 Carpal Tunnel Release Completed 06/19/2017 43666 Carpal Tunnel Release Completed 05/01/2017 40470 Carpal Tunnel Release Completed 05/01/2017 42728 Carpal Tunnel Release Completed 04/22/2017 65076 ECHO Transthoracic, Real-Time 2D With Doppler And Color Completed Flow 04/18/2017 02946 EKG Tracing & Interpretation Completed 03/13/2017 80355 Nerve Conduction 07-08 Studies Completed 03/13/2017 93326 Needle Electromyography Complete, Five Or More Muscles Completed Studied 12/17/2016 96192 Hyperbaric Oxygen Therapy By Physician Completed 12/12/2016 48420 Hyperbaric Oxygen Therapy By Physician Completed 12/11/2016 69832 Chemical Cautery Granulation Tissue Completed 12/10/2016 02425 Hyperbaric Oxygen Therapy By Physician Completed 12/06/2016 03172 Hyperbaric Oxygen Therapy By Physician Completed 12/05/2016 49500 Hyperbaric Oxygen Therapy By Physician Completed 12/03/2016 17004 Hyperbaric Oxygen Therapy By Physician Completed 11/29/2016 60076 Hyperbaric Oxygen Therapy By Physician Completed 11/28/2016 97866 Hyperbaric Oxygen Therapy By Physician Completed 11/26/2016 85292 Hyperbaric Oxygen Therapy By Physician Completed 11/22/2016 11062 Hyperbaric Oxygen Therapy By Physician Completed 11/21/2016 94279 Hyperbaric Oxygen Therapy By Physician Completed 11/20/2016 93154 Hyperbaric Oxygen Therapy By Physician Completed 11/19/2016 84493 Hyperbaric Oxygen Therapy By Physician Completed 11/19/2016 11053 Removal Devitalization Tissue Wound Less Than Equal 20 Completed Square CM 11/06/2016 89701 Hyperbaric Oxygen Therapy By Physician Completed 11/05/2016 90510 Hyperbaric Oxygen Therapy By Physician Completed 11/01/2016 53882 Hyperbaric Oxygen Therapy By Physician Completed 10/31/2016 20559 Removal Devitalization Tissue Wound Less Than Equal 20 Completed Square CM 10/31/2016 96052 Hyperbaric Oxygen Therapy By Physician Completed 10/30/2016 72018 Hyperbaric Oxygen Therapy By Physician Completed 10/29/2016 29385 Hyperbaric Oxygen Therapy By Physician Completed 10/25/2016 08568 Hyperbaric Oxygen Therapy By Physician Completed 10/24/2016 20984 Hyperbaric Oxygen Therapy By Physician Completed 10/24/2016 75026 Debridement Skin,& sq Tissue Completed 10/23/2016 46967 Hyperbaric Oxygen Therapy By Physician Completed 10/22/2016 60907 Hyperbaric Oxygen Therapy By Physician Completed 10/21/2016 99585 Hyperbaric Oxygen Therapy By Physician Completed 10/18/2016 88538 Hyperbaric Oxygen Therapy By Physician Completed 10/17/2016 23161 Hyperbaric Oxygen Therapy By Physician Completed 10/15/2016 55306 Hyperbaric Oxygen Therapy By Physician Completed 10/14/2016 84734 Hyperbaric Oxygen Therapy By Physician Completed 10/11/2016 83107 Hyperbaric Oxygen Therapy By Physician Completed 10/09/2016 34466 Hyperbaric Oxygen Therapy By Physician Completed 10/08/2016 26153 Hyperbaric Oxygen Therapy By Physician Completed 10/08/2016 14949 Removal Devitalization Tissue Wound Less Than Equal 20 Completed Square CM 10/04/2016 47575 Hyperbaric Oxygen Therapy By Physician Completed 10/03/2016 29096 Hyperbaric Oxygen Therapy By Physician Completed 10/03/2016 10137 Removal Devitalization Tissue Wound Less Than Equal 20 Completed Square CM 10/02/2016 40435 Hyperbaric Oxygen Therapy By Physician Completed 10/01/2016 38672 Hyperbaric Oxygen Therapy By Physician Completed 09/27/2016 48533 Hyperbaric Oxygen Therapy By Physician Completed 09/26/2016 79257 Apply Total Contact Leg Cast Completed 09/26/2016 75354 Hyperbaric Oxygen Therapy By Physician Completed 09/25/2016 02227 Hyperbaric Oxygen Therapy By Physician Completed 09/24/2016 40673 Hyperbaric Oxygen Therapy By Physician Completed 09/24/2016 09494 Removal Devitalization Tissue Wound Less Than Equal 20 Completed Square CM 09/24/2016 84042 Debridement Skin,& sq Tissue Completed 09/20/2016 76131 Hyperbaric Oxygen Therapy By Physician Completed 09/19/2016 16217 Hyperbaric Oxygen Therapy By Physician Completed 09/19/2016 27086 Removal Devitalization Tissue Wound Less Than Equal 20 Completed Square CM 09/19/2016 48131 Debridement Skin,& sq Tissue Completed 09/18/2016 04577 Hyperbaric Oxygen Therapy By Physician Completed 09/17/2016 28687 Revascularization,Endovascular W/Transluminal Angioplasty Completed 09/13/2016 85440 Hyperbaric Oxygen Therapy By Physician Completed 09/12/2016 19394 Hyperbaric Oxygen Therapy By Physician Completed 09/11/2016 16599 Hyperbaric Oxygen Therapy By Physician Completed 08/29/2016 58026 Removal Devitalization Tissue Wound Less Than Equal 20 Completed Square CM 08/29/2016 81870 Debridement Skin,& sq Tissue Completed 08/23/2016 54063 EKG Tracing & Interpretation Completed 08/22/2016 88197 Biopsy Skin Lesion Single Completed 08/15/2016 72589 I&D Abscess Simple Completed 08/08/2016 86125 Debridement Skin,& sq Tissue Completed 08/18/2015 78400 EKG Tracing & Interpretation Completed 03/20/2015 54952 ECHO Transthoracic, Real-Time 2D With Doppler And Color Completed Flow 06/30/2014 57040 EKG Tracing & Interpretation Completed Encounters Type Date Location Provider Dx Diagnosis Office Visit 01/13/2019 [facility] Melida Andrews, I50.31 Acute diastolic 9:41a Asslinda,pc D.O. 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 D50.9 Iron deficiency 7:00a MD Bonifacio anemia, unspecified K31.819 Angiodysplasia of stomach and duodenum without bleeding Office Visit 01/12/2019 [facility] Brenna I50.31 Acute diastolic 9:40a Asslinda,rober Pratt M.D. (congestive) heart Hospitalists failure I48.91 Unspecified atrial fibrillation I10 Essential (primary) hypertension E11.9 Type 2 diabetes mellitus without complications R33.9 Retention of urine, unspecified Office Visit 01/11/2019 9:40a [facility] Lori R06.02 Shortness of Assoc,rober Chavarria NP breath Hospitalists I48.91 Unspecified atrial fibrillation I10 Essential (primary) hypertension E78.5 Hyperlipidemia, unspecified E11.9 Type 2 diabetes mellitus without complications R33.9 Retention of urine, unspecified K21.9 Gastro-esophageal reflux disease without esophagitis Office Visit 11/09/2018 [facility] Feliberto London, Z79.84 half-way 8:15a Services Of (current) use of C.M.A. 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 left lower limb Diseases Office Visit 09/09/2018 3:30p [facility] Feliberto Callahan, M14.672 Charcot' s joint, Services Of left ankle and C.M.A. 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 unsp metatarsal Hospitalists bone(s), left foot, init L03.116 Cellulitis of left lower limb E11.9 Type 2 diabetes mellitus without complications I10 Essential (primary) hypertension Office Visit 08/28/2018 [facility] Brenna S92.302A Fracture of unsp 10:23a rober Jordan M.D. metatarsal Hospitalists bone(s), left foot, init L03.116 Cellulitis of left lower limb E11.9 Type 2 diabetes mellitus without complications I10 Essential (primary) hypertension Office Visit 08/27/2018 [facility] Brenna S92.302A Fracture of unsp 10:23a Assocrober M.D. 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 left foot, init S92.322A Disp fx of second metatarsal bone, left foot, init S92.332A Disp fx of third metatarsal bone, left foot, init S92.342A Disp fx of fourth metatarsal bone, left foot, init S92.352A Disp fx of fifth metatarsal bone, left foot, init Office Visit 08/26/2018 [facility] S92.902A Unsp fracture 10:23a Assocrober PA of left foot, Hospitalists init encntr for closed fracture L03.116 Cellulitis of left lower limb E11.65 Type 2 diabetes mellitus with hyperglycemia I10 Essential (primary) hypertension W30.0xxA Contact with combine harvester, initial encounter Y92.[address] of occurrence of the external cause Z68.36 Body mass index (BMI) 36.0-36.9, adult Office Visit 08/26/2018 [facility] Feliberto Callahan, S92.322A Disp fx of 2:45p Services Of MD noel C.M.A. metatarsal bone, left foot, init S92.332A Disp fx of third metatarsal bone, left foot, init S92.355A Nondisp fx of fifth metatarsal bone, left foot, init Office 05/22/2018 [facility] V[facility] M47.26 Other spondylosis Visit 1:30p Services Of Christiane Vallejo MD with radiculopathy, lumbar region E66.8 Other obesity Z48.89 Encounter for other specified surgical aftercare Office Visit 02/12/2018 [facility] E11.9 Type 2 diabetes 3:06p rober Jordan M.D. mellitus without Hospitalists complications I35.0 Nonrheumatic aortic (valve) stenosis I25.10 Athscl heart disease of [place] coronary artery w/o ang pctrs Z79.4 half-way (current) use of insulin Office Visit 02/06/2018 2:30p [facility] Albin Palomo I25.10 Athscl heart Of Christiane Mclaughlin M.D. 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 side M54.16 Radiculopathy, lumbar region Office Visit 10/28/2017 2:00p Orthopedic Colin Schumacher4.41 Lumbago with Services Of MD silva, right C.M.A. side M54.16 Radiculopathy, lumbar region M25.551 Pain in right hip Office Visit 04/23/2017 10:30a [facility] Albin Palomo I35.0 Nonrheumatic Of Christiane Mclaughlin M.D. 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 disease of beaver coronary artery w/o ang pctrs I35.0 Nonrheumatic aortic (valve) stenosis Z01.810 Encounter for preprocedural cardiovascular examination Office Visit 04/15/2017 Orthopedic Services Of Payam G56.03 Carpal tunnel 2:00p Erica Mayen MD syndrome, bilateral upper limbs Office Visit 04/04/2017 Neurohospital[facility] Yamile Rizo G56.03 Carpal tunnel 11:00a Clinic syndrome, bilateral upper limbs Office Visit 02/11/2017 [facility] E11.621 Type 2 2:36p KRIS Joyce M.D. 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 L97.521 Non-prs chronic ulcer oth prt l foot limited to brkdwn skin Office Visit 12/17/2016 3:16p [facility] E11.621 Type 2 diabetes Center AT [facility] Kristina Joyce mellitus with foot ulcer M86.8x7 Other osteomyelitis, ankle and foot Office Visit 12/03/2016 10:08a [facility] M86.8x7 Other osteomyelitis, Center AT [facility] Kristina Joyce ankle and foot E11.621 Type 2 diabetes mellitus with foot ulcer Office Visit 11/26/2016 4:11p [facility] E11.621 Type 2 diabetes Center AT [facility] Kristina Joyce mellitus with foot ulcer M86.8x7 Other osteomyelitis, ankle and foot Office Visit 11/04/2016 1:40p [facility] Kady Villanueva L97.524 Non- prs chronic Of [facility] AT [facility] MD Vadim, ulcer oth prt [facility] left foot w necrosis of bone G60.3 Idiopathic progressive neuropathy Office Visit 10/28/2016 [facility] Tong Palomo E11.621 Type 2 diabetes 3:00p For Infectious Kristina Hairston mellitus with Diseases foot ulcer Office Visit 10/21/2016 [facility] Kady Villanueva I73.9 Peripheral 1:40p Cardiology Of MD Vadim, vascular disease, [facility] AT [facility], [facility] unspecified Office Visit 10/16/2016 W[facility] Care Beverley Andrew E11.621 Type 2 diabetes 2:45p Center AT [facility] MD Germán mellitus with foot ulcer 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 M86.8x7 Other osteomyelitis, ankle and foot L97.521 Non-prs chronic ulcer oth prt l foot limited to brkdwn skin L97.221 Non-prs chronic ulcer of left calf limited to brkdwn skin L02.632 Carbuncle of left foot R09.89 Oth symptoms and signs involving the circ and resp systems E78.5 Hyperlipidemia, unspecified K21.9 Gastro-esophageal reflux disease without esophagitis I25.10 Athscl heart disease of be[place] coronary artery w/o 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, other tobacco product, in remission Office Visit 10/07/2016 [facility] Tong Palomo M86.672 Other chronic 2:40p For Infectious Kristina Hairston osteomyelitis, left Diseases ankle and foot E11.621 Type 2 diabetes mellitus with foot ulcer Office Visit 09/20/2016 11:30a [facility] Kady Villanueva L97.524 Non- prs chronic Of [employer] AT [facility] MD Vadim, ulcer oth prt FAC, [facility] left foot w necrosis of bone Office Visit 09/17/2016 10:10a [facility] For Tong Palomo L97.524 Non- prs chronic Infectious Kristina Hairston ulcer oth prt Diseases left foot w necrosis of bone E11.621 Type 2 diabetes mellitus with foot ulcer M86.672 Other chronic osteomyelitis, left ankle and foot Z23 Encounter for immunization Office Visit 09/11/2016 9:00a Wound Care Silvino Avila E11.621 Type 2 diabetes Center AT [facility] MD Francine mellitus with foot ulcer 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 M86.8x7 Other osteomyelitis, ankle and foot L97.521 Non-prs chronic ulcer oth prt l foot limited to brkdwn skin L97.221 Non-prs chronic ulcer of left calf limited to brkdwn skin L02.632 Carbuncle of left foot R09.89 Oth symptoms and signs involving the circ and resp systems E78.5 Hyperlipidemia, unspecified K21.9 Gastro-esophageal reflux disease without esophagitis I25.10 Athscl heart disease of be[place] coronary artery w/o 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, other tobacco product, in remission Office Visit 09/09/2016 1:40p [facility] Kady iVllanueva L97.524 Non- prs chronic Of [employer] AT [facility] MD Vadim, ulcer oth prt FACC, [facility] left foot w necrosis of bone E11.621 Type 2 diabetes mellitus with foot ulcer Office Visit 09/04/2016 3:30p Wound Care Beverley Andrew E11.621 Type 2 diabetes Center AT [facility] MD Germán mellitus with foot ulcer 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 M86.8x7 Other osteomyelitis, ankle and foot L97.521 Non-prs chronic ulcer oth prt l foot limited to brkdwn skin L97.221 Non-prs chronic ulcer of left calf limited to brkdwn skin L02.632 Carbuncle of left foot R09.89 Oth symptoms and signs involving the circ and resp systems E78.5 Hyperlipidemia, unspecified K21.9 Gastro-esophageal reflux disease without esophagitis 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 flutter I25.10 Athscl heart disease of [place] coronary artery w/o ang pctrs I35.0 Nonrheumatic aortic (valve) stenosis Office Visit 08/18/2015 11:15a [facility] Albin Palomo I25.10 Athscl heart Of Christiane Mclaughlin M.D. disease of beaver coronary artery w/o dominguez pctrs I48.3 Typical atrial flutter Office Visit 06/30/2014 [facility] [place] 414.01 Coronary 12:45p Cardiology Elle Mclaughlin M.D. Atherosclerosis Christiane Clements 427.32 Atrial Flutter Office Visit 05/06/2013 12:30p [facility] Albin Palomo 427.32 Atrial Flutter Of Christiane Mclaughlin M.D. 414.9 Ischemic Heart Disease Chronic Unspec Plan of Treatment 11/04/2016 - Kady Fierro MD, [facility], RMLGRO78.524 Non-pressure chronic ulcer of other part of left foot with necrosis of boneComments:Watch the top and bottom of the first toe closely for any recurrence of redness, drainage or skin breakdown.Follow up:PRNG60.3 Idiopathic progressive neuropathyComments: Discuss with Dr. Ro referral to neurology for evaluation of neuropathy with proximal girdle muscle weakness and right hand worse than left hand neuropathy.
[2019-03-07 09:40] VITALS: BP 133/55
--- NOTE | 2019-03-07 09:47 | UC ---
Complaint Male HPI - HPI Summary HPI Summary: 78 yo male presents with possible leak from catheter. He tells me that he has had a urinary catheter for about 2-3 months. He last saw urology about a month ago and was trialed without the cath, but still had urinary retention, therefore the cath was placed again. He tells me that this morning he woke and noticed that his bag was only a quarter full and his underwear was soiled with urine. He felt an urge to urinate and when he did he thinks he saw some urine coming out of his penis not within the cath tubing. He changed the cath bag and has not had this problem since, but came to to have his cath checked. Denies pain, burning urination, change in color to urine, or fever. - History of Current Complaint Chief Complaint: UCGU Stated Complaint: URINARY Time Seen by Provider: 03/07/19 09:47 Hx Obtained From: Patient Onset/Duration: Sudden Onset Severity Currently: None Pain Intensity: 0 - Allergies/Home Medications Allergies/Adverse Reactions: Allergies Allergy/AdvReac Type Severity Reaction Status Date / Time Penicillins Allergy Unknown Verified 03/07/19 09:40 Reaction Details PMH/Surg Hx/FS Hx/Imm Hx - Additional Past Medical History Additional PMH: BPH Endocrine History: Diabetes Cardiovascular History: Cardiac Disease, Hypertension, Congestive Heart Failure , Atrial Fibrillation - Surgical History Surgical History: Yes Surgery Procedure, Year, and Place: left index finger - PARTIAL AMPUTATED. left ankle mark,. CSP. 1998 cholecystectomy, THEN 2005 - HAD COMMON BILE DUCT REPAIR AND STONES REMOVED. APPENDECTOMY - Family History Known Family History: Positive: Hypertension, Diabetes, Other - Noncontributory - Social History Lives: With Family Alcohol Use: None Alcohol Amount: QUIT 1992 Substance Use Type: None Smoking Status (MU): Former Smoker Type: Pipe Amount Used/How Often: reports smoked pipe (full pouch tobacco) daily for 38 years When Did the Patient Quit Smoking/Using Tobacco: 1992 - Immunization History Most Recent Influenza Vaccination: fall 2017 Most Recent Pneumonia Vaccination: 2010 Review of Systems All Other Systems Reviewed And Are Negative: Yes Constitutional: Positive: Negative Skin: Positive: Negative Respiratory: Positive: Negative Cardiovascular: Positive: Negative Gastrointestinal: Positive: Negative Genitourinary: Positive: Other - ?cath leak Neurovascular: Positive: Negative Neurological: Positive: Negative Psychological: Positive: Negative Physical Exam - Summary Physical Exam Summary: GENERAL: NAD. WDWN. No pain distress. SKIN: No rashes, sores, lesions, or open wounds. CHEST: No accessory muscle use. Breathing comfortably and in no distress. CV: Pulses intact. Cap refill <2seconds ABDOMEN: Soft. NTTP. No distention. No CVA tenderness. Bowel sounds present. NTTP over bladder. No bladder distention appreciated. NEURO: Alert. PSYCH: Age appropriate behavior. Triage Information Reviewed: Yes Vital Signs: Initial Vital Signs Temp 98.0 F 03/07/19 09:37 Pulse 78 03/07/19 09:37 Resp 18 03/07/19 09:37 BP 133/55 03/07/19 09:37 Pulse Ox 98 03/07/19 09:37 Vital Signs Reviewed: Yes Male Genital Exam: Positive: Other - Cath in place and tubing appears intact.. Negative: Epididymal Tenderness, Erythema, Inguinal Tenderness, Scrotum Tenderness (R), Scrotum Tenderness (L), Testicular Tenderness (R), Testicular Tenderness (L), Urethral Discharge Complaint Male Course/Dx - Course Course Of Treatment: An attempt to flush the cath with NS was unsuccessful, therefore cath was removed and, under sterile technique, a new urinary catheter was placed and good flow was achieved. 850ccs of urine was output. - Differential Dx/Diagnosis Provider Diagnosis: Leakage of indwelling urethral catheter Discharge - Sign-Out/Discharge Documenting (check all that apply): Patient Departure All imaging exams completed and their final reports reviewed: No Studies - Discharge Plan Condition: Stable Disposition: HOME Patient Education Materials: [facility] Catheter Placement and Care (ED) Referrals: Momo Ro MD [Primary Care Provider] - Handy Arteaga MD [Medical Doctor] - 1 Day Additional Instructions: If you develop a fever, shortness of breath, chest pain, new or worsening symptoms - please call your PCP or go to the ED. Please call Dr. Arteaga's office tomorrow to move up your appointment as soon as possible for a recheck of your catheter. - Billing Disposition and Condition Condition: STABLE Disposition: Home
== END 2019-03-07 10:38 | disposition home or self-care (01) ==
LOC: UCEAST 09:32
DX: T83.038A Leakage of other urinary catheter, initial encounter (principal); N40.0 Benign prostatic hyperplasia without lower urinary tract symptoms; E11.9 Type 2 diabetes mellitus without complications; I11.0 Hypertensive heart disease with heart failure; I50.9 Heart failure, unspecified; I48.91 Unspecified atrial fibrillation; Z89.022 Acquired absence of left finger(s); Z88.0 Allergy status to penicillin; Z87.891 Personal history of nicotine dependence
CPT/HCPCS: 51702; 99212; G0463